=== PATIENT | female | born 1990 | race Hispanic/Latino ===

== ENCOUNTER 2017-11-29 11:08 | Emergency (ER) | payer OTHER, SELFPAY ==
[2017-11-29 13:38] LABS: Urine Bacteria 20-50 /HPF (<20); Urine Culture Reflex Order REFLEXED
[2017-11-29 13:39] LABS: Urine Mucus SLIGHT /HPF (NONE SEEN)
--- NOTE | 2017-11-29 14:02 | ER ---
Nurse's Notes [facility] Name: Domenica Harris Age: 27 yrs Sex: Female : 1990 Arrival Date: 11/29/2017 Time: 11:13 Bed 23 Private MD: None, None Diagnosis: Cystitis, unspecified with hematuria Presentation: 11/29 11:27 Presenting complaint: Patient states: Lower abdominal cramping and spotty vaginal hb bleeding yesterday, light flow today. Positive home test last week. LMP 10/22/17. Transition of care: patient was not received from another setting of care. Onset of symptoms was November 28, 2017. Risk Assessment: Do you want to hurt yourself or someone else? Patient reports no desire to harm self or others. Care prior to arrival: None. 11:27 Method Of Arrival: Ambulatory hb 11:27 Acuity: ZAID 3 hb 12:49 Initial Sepsis Screen: Does the patient meet any 2 criteria? No. Patient's initial ed1 sepsis screen is negative. Does the patient have a suspected source of infection? No. Patient's initial sepsis screen is negative. Triage Assessment: 11:28 General: Appears in no apparent distress. Behavior is calm, cooperative. Pain: Pain hb currently is 7 out of 10 on a pain scale. Neuro: Level of Consciousness is awake, alert, obeys commands, Oriented to person, place, time, situation. Cardiovascular: Capillary refill < 3 seconds. Respiratory: Airway is patent Trachea midline Respiratory effort is even, unlabored, Respiratory pattern is regular, symmetrical. : Reports cramping, vaginal bleeding that is light flow. 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 - Social history:: Smoking status: Patient/guardian denies using tobacco. - Ebola Screening: : No symptoms or risks identified at this time. Screenin:49 Abuse screen: Denies threats or abuse. Denies injuries from another. Nutritional ed1 screening: No deficits noted. Tuberculosis screening: No symptoms or risk factors identified. Fall Risk None identified. Assessment: 12:49 Obstetrical Assessment: General assessment: awake and alert, skin warm and dry, ed1 respirations even and unlabored, Patient reports positive home test. General: Appears in no apparent distress. Behavior is calm, cooperative. Pain: Complains of pain in right lower quadrant and left lower quadrant Pain does not radiate. Pain currently is 7 out of 10 on a pain scale. Quality of pain is described as crampy, Pain began 1 day ago. Is continuous. Neuro: Level of Consciousness is awake, alert, obeys commands, Oriented to person, place, time, situation. Cardiovascular: Denies chest pain, Heart tones S1 S2 present. Respiratory: Airway is patent Respiratory effort is even, unlabored, Respiratory pattern is regular, symmetrical, Breath sounds are clear bilaterally. GI: Abdomen is non-distended, Bowel sounds present X 4 quads. Abd is soft and non tender X 4 quads. Reports upper abdominal pain, Patient currently denies diarrhea, nausea, vomiting. : Reports vaginal bleeding that is bright red, spotty. EENT: No signs and/or symptoms were reported regarding the EENT system. Derm: Skin is pink, warm \T\ dry. Musculoskeletal: Circulation, motion, and sensation intact. 13:00 Reassessment: I agree with previous assessment. hb 13:50 Reassessment: Patient appears in no apparent distress at this time. No changes from ed1 previously documented assessment. Patient and/or family updated on plan of care and expected duration. Pain level reassessed. Patient is alert, oriented x 3, equal unlabored respirations, skin warm/dry/pink. Patient states symptoms have not improved. Vital Signs: 11:26 BP 149 / 88; Pulse 91; Resp 16; Temp 98.3; Pulse Ox 100% on R/A; Pain 7/10; hb 12:49 BP 136 / 84; Pulse 71; Resp 18; Pulse Ox 100% on R/A; Pain 7/10; ed1 13:50 BP 136 / 82; Pulse 76; Resp 17; Temp 98.5(O); Pulse Ox 100% on R/A; Pain 7/10; ed1 Vitals: 14:14 Heart Tones N/A. ed1 ED Course: 11:13 Patient arrived in ED. sb2 11:14 None, None is Private Physician. sb2 11:28 Triage completed. hb 11:28 Arm band placed on right wrist. hb 11:38 Itzel Buck RN is Primary Nurse. hb 12:49 Patient has correct armband on for positive identification. Bed in low position. Call ed1 light in reach. 12:50 Jessica Dominguez LVN is Primary Nurse. ed1 12:57 Eduard Wilson MD is Attending Physician. 14:13 No provider procedures requiring assistance completed. Patient did not have IV access ed1 during this emergency room visit. Administered Medications: No medications were administered Point of Care Testing: Urine : 13:50 hCG Reading: Negative; ed1 Outcome: 14:02 Discharge ordered by . gs 14:13 Discharged to home ambulatory. ed1 14:13 Condition: good 14:13 Discharge instructions given to patient, Instructed on discharge instructions, follow up and referral plans. medication usage, Demonstrated understanding of instructions, follow-up care, medications, Prescriptions given X 1. 14:15 Patient left the ED. ed1 Addendum: 12/02/2017 17:23 Addendum: Culture Results: Positive urine culture. Bacteria is resistant to, has i w intermediate sensitivity, or is not tested against prescribed antibiotics. Report given to BIANCA for further evaluation and then to hand candy dipper for follow up with patient. 17:26 Addendum: Culture Results: Phone call Attempt #1 pt did not answer, voice mail not set i w up. Signatures: Kenyetta Goodwin RN RN Jessica Dominguez LVN RELAY CHECKER ed1 Itzel Buck RN RN Eduard Wilson MD MD Carrie Brito sb2
--- NOTE | 2017-11-29 14:02 | EDPHYS ---
Physician Documentation [facility] Name: Domenica Harris Age: 27 yrs Sex: Female : 1990 Arrival Date: 11/29/2017 Time: 11:13 Bed 23 Private MD: None, None ED Physician Eduard Wilson HPI: 11/29 13:48 This 27 yrs old Female presents to ER via Ambulatory with complaints of gs Vaginal Bleeding, + Preg <12wks. 13:48 The patient presents to the emergency department with urinary symptoms, hematuria, gs vaginal bleeding, that is light. Associated signs and symptoms: Pertinent negatives: abdominal pain, fever. The patient has experienced similar episodes in the past, a few times. took upt was positive last week, symptoms started today. 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 - Social history:: Smoking status: Patient/guardian denies using tobacco. - Ebola Screening: : No symptoms or risks identified at this time. ROS: 13:48 All other systems are negative. gs Exam: 13:48 Head/Face: Normocephalic, atraumatic. Eyes: Pupils equal round and reactive to light, gs extra-ocular motions intact. Lids and lashes normal. Conjunctiva and sclera are non-icteric and not injected. Cornea within normal limits. Periorbital areas with no swelling, redness, or edema. ENT: Nares patent. No nasal discharge, no septal abnormalities noted. Tympanic membranes are normal and external auditory canals are clear. Oropharynx with no redness, swelling, or masses, exudates, or evidence of obstruction, uvula midline. Mucous membranes moist. Neck: Trachea midline, no thyromegaly or masses palpated, and no cervical lymphadenopathy. Supple, full range of motion without nuchal rigidity, or vertebral point tenderness. No Meningismus. Chest/axilla: Normal chest wall appearance and motion. Nontender with no deformity. No lesions are appreciated. Cardiovascular: Regular rate and rhythm with a normal S1 and S2. No gallops, murmurs, or rubs. Normal PMI, no JVD. No pulse deficits. Respiratory: Lungs have equal breath sounds bilaterally, clear to auscultation and percussion. No rales, rhonchi or wheezes noted. No increased work of breathing, no retractions or nasal flaring. Abdomen/GI: Soft, non-tender, with normal bowel sounds. No distension or tympany. No guarding or rebound. No evidence of tenderness throughout. Back: No spinal tenderness. No costovertebral tenderness. Full range of motion. Skin: Warm, dry with normal turgor. Normal color with no rashes, no lesions, and no evidence of cellulitis. MS/ Extremity: Pulses equal, no cyanosis. Neurovascular intact. Full, normal range of motion. Neuro: Awake and alert, GCS 15, oriented to person, place, time, and situation. Cranial nerves II-XII grossly intact. Motor strength 5/5 in all extremities. Sensory grossly intact. Cerebellar exam normal. Normal gait. 13:48 Constitutional: The patient appears alert, awake. Vital Signs: 11:26 BP 149 / 88; Pulse 91; Resp 16; Temp 98.3; Pulse Ox 100% on R/A; Pain 7/10; hb 12:49 BP 136 / 84; Pulse 71; Resp 18; Pulse Ox 100% on R/A; Pain 7/10; ed1 13:50 BP 136 / 82; Pulse 76; Resp 17; Temp 98.5(O); Pulse Ox 100% on R/A; Pain 7/10; ed1 MDM: 13:38 Patient medically screened. 13:48 Differential diagnosis: , uti. Data reviewed: vital signs, nurses notes. 11/29 12:58 Order name: Urine Microscopic Only 11/29 13:40 Order name: Urine Culture [facility] 11/29 12:58 Order name: Urine Test (obtain specimen); Complete Time: 13:50 11/29 12:58 Order name: Urine Dipstick-Ancillary (obtain specimen); Complete Time: 13:50 Administered Medications: No medications were administered Point of Care Testing: Urine : 13:50 hCG Reading: Negative; ed1 Disposition: 11/29/17 14:02 Discharged to Home. Impression: Cystitis, unspecified with hematuria. - Condition is Stable. - Discharge Instructions: Urinary Tract Infection, Adult. - Prescriptions for Keflex 500 mg Oral Capsule - take 1 capsule by ORAL route every 12 hours for 7 days; 14 capsule. - Medication Reconciliation Form, Thank You Letter, Antibiotic Education, Prescription Opioid Use form. - Follow up: Private Physician; When: 2 - 3 days; Reason: Re-evaluation by your physician. Signatures: Dispatcher [employer] EDMS Jessica Dominguez, INTERLOCKING PAVEMENT INSTALLER INTERLOCKING PAVEMENT INSTALLER ed1 Itzel Buck RN RN Eduard Ly MD MD gs Corrections: (The following items were deleted from the chart) 14:15 14:02 11/29/2017 14:02 Discharged to Home. Impression: Cystitis, unspecified with ed1 hematuria. Condition is Stable. Forms are Medication Reconciliation Form, Thank You Letter, Antibiotic Education, Prescription Opioid Use. Follow up: Private Physician; When: 2 - 3 days; Reason: Re-evaluation by your physician. gs
[2017-11-29 14:20] VITALS: O2SAT 100
[2017-11-29 14:22] VITALS: BP 136/82; TEMP 98.5
== END 2017-11-29 14:15 | disposition home or self-care (01) ==
LOC: ER 11:08
DX: N30.91 Cystitis, unspecified with hematuria (principal); Z91.040 Latex allergy status; Z91.048 Other nonmedicinal substance allergy status
CPT/HCPCS: 81015; 87077; 87086; 87088; 87186; 99283

== ENCOUNTER 2018-10-09 21:13 | Emergency (ER) | payer OTHER, SELFPAY ==
--- OUTSIDE RECORDS SUMMARY | 2018-10-09 21:15 | XMS REPORT ---
:1990 [facility] [address] [place] [address] Dr. Maxwell[address] [place] [id number] Care Team Providers Name Role Phone Unavailable Unavailable Unavailable Problems This patient has no known problems. Allergies, Adverse Reactions, Alerts This patient has no known allergies or adverse reactions. Medications This patient has no known medications.
--- NOTE | 2018-10-09 22:04 | ER ---
Nurse's Notes [facility] Name: Domenica Calderón Age: 28 yrs Sex: Female : 1990 Arrival Date: 10/09/2018 Time: 21:17 Bed Waiting Private MD: Diagnosis: Presentation: 10/09 21:18 Presenting complaint: Patient states: Chills today. Reports giving 4 days ago. aj Care prior to arrival: None. 21:18 Acuity: ZAID 3 aj 21:18 Method Of Arrival: Ambulatory Triage Assessment: 21:18 General: Appears in no apparent distress. comfortable, Behavior is calm, cooperative, aj appropriate for age. Pain: Denies pain. Neuro: Level of Consciousness is awake, alert, obeys commands, Oriented to person, place, time, situation, Appropriate for age. Respiratory: Airway is patent Respiratory effort is even, unlabored, Respiratory pattern is regular, symmetrical. Derm: Skin is intact, is healthy with good turgor, Skin is pink, warm \T\ dry. normal. 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 4 in. (162.56 cm); 21:18 Body Mass Index 35.19 (92.99 kg, 162.56 cm) aj ED Course: 21:17 Patient arrived in ED. es 21:18 Triage completed. aj 21:18 Arm band placed on left wrist. Patient placed in waiting room, Patient notified of wait aj time. 22:03 Geovani Saavedra MD is Attending Physician. aj Administered Medications: No medications were administered Outcome: 22:03 Eloped from waiting room, before seeing physician Time discovered patient gone: September at 22:03 22:03 Patient left the ED. aj Signatures: Jackie Carrera, RN RN Sujatha Silverman
[2018-10-09 23:29] VITALS: BP 105/67; TEMP 98.3; O2SAT 98
== END 2018-10-09 22:03 | disposition left against medical advice (07) ==
LOC: ER 21:13
DX: R68.83 Chills (without fever) (principal); Z53.21 Procedure and treatment not carried out due to patient leaving prior to being seen by health care provider
CPT/HCPCS: 99281

== ENCOUNTER 2024-04-25 18:20 | Emergency (ER) | payer OTHER, SELFPAY ==
--- NOTE | 2024-04-25 18:56 | EDPHYS ---
Physician Documentation [facility] Name: Domenica Calderón Age: 33 yrs Sex: Female : 1990 Arrival Date: 04/25/2024 Time: 18:20 Bed DX3 Private MD: ED Physician Diego Menjivar HPI: 04/25 20:46 This 33 yrs old Female presents to ER via Ambulatory with complaints of Leg ms3 Swelling - Left including foot drop. 20:46 Lin Calderón is a 33-year-old woman who presents to the Emergency Department with a ms3 flare of her multiple sclerosis (MS). She describes this episode as similar to her typical MS flares, which include weakness and foot drop. Lin has previously been treated in the emergency department with oral steroids and discharged home with steroid for her MS flares and prefers not to be admitted this time due to her responsibilities at home, including caring for her five children and a . She reports that oral steroids have been effective in the past. She desires to manage this flare with outpatient oral steroids rather than hospital admission.. Historical: - Allergies: 18:42 No Known Allergies; ll1 - PMHx: 18:42 Anemia; gestational diabetes; Multiple Sclerosis; ll1 - PSHx: 18:42 section; ll1 - Immunization history:: Flu vaccine is not up to date. - Infectious Disease History:: Denies. - Social history:: Smoking status: Patient denies any tobacco usage or history of. ROS: 20:46 Constitutional: Negative for fever, and chills. Cardiovascular: Negative for chest ms3 pain, and palpitations. Respiratory: Negative for shortness of breath, cough, wheezing, and pleuritic chest pain, Abdomen/GI: Negative for abdominal pain, nausea, vomiting, diarrhea, and constipation, MS/Extremity: Negative for injury and deformity, 20:48 Neuro: Positive for Left foot drop, left-sided weakness, ms3 Exam: 20:48 CT study not indicated or reported. Reason for not performing CT: Patient declines ms3 workup requesting oral steroids 20:48 Constitutional: This is a well developed, well nourished patient who is awake, alert, and in no acute distress. Chest/axilla: Normal chest wall appearance and motion. Nontender with no deformity. Cardiovascular: Regular rate and rhythm with a normal S1 and S2. No gallops, murmurs, or rubs. Normal PMI, no JVD. No pulse deficits. Respiratory: Lungs have equal breath sounds bilaterally, clear to auscultation and percussion. No rales, rhonchi or wheezes noted. No increased work of breathing, no retractions or nasal flaring. Abdomen/GI: Soft, non-tender, with normal bowel sounds. No distension or tympany. No guarding or rebound. No evidence of tenderness throughout. Skin: Warm, dry with normal turgor. Normal color with no rashes, no lesions, and no evidence of cellulitis. 20:48 Musculoskeletal/extremity: Left foot drop. 20:48 Neuro: Orientation: is normal, Mentation: is normal, Memory: is normal, Cranial nerves: CN I not tested, CN II- XII are normal as tested, Cerebellar function: Ambulatory emergency room, Motor: Gait: is steady, Vital Signs: 18:41 BP 108 / 93; Pulse 78; Resp 17; Temp 97.7(TE); Pulse Ox 100% on R/A; MAP 99 mmHg; ll1 Weight 72.57 kg; Height 5 ft. 4 in. ; Pain 0/10; 19:15 BP 108 / 71; Pulse 74; Resp 17; Temp 97.7; Pulse Ox 100% on R/A; MAP 82 mmHg; tm6 18:41 Body Mass Index 27.46 (72.57 kg, 162.56 cm) ll1 18:41 Pain Scale: Adult ll1 MDM: 18:46 Medical Screening Exam initiated ms3 18:56 ED course: Patient has decided to refuse labs, CT scan, hospital admission. At this ms3 time, I reevaluated the patient and discussed the following: a. Capacity: The patient has the capacity to communicate, understand information, and logically process the decision making process. b. Communication of risks: At bedside, I discussed potential risks, outcomes, and alternative approaches in a patientcentered manner. The patient was informed of the specific risks of worsening disease process, disability, including worsening condition and . The patient understands that they are welcome to return at any time to complete the workup. Patient is discharged from my care with informed refusal. . 20:48 Differential diagnosis: metabolic disorder, Multiple sclerosis flare. TNKase ms3 (Tenecteplase) Screening: Not Applicable. Data reviewed: vital signs, nurses notes, and as a result, I will discharge patient. Consideration of Admission/Observation Escalation of care including admission/observation considered. Discussed necessity for further workup and admission for high-dose steroids. Patient declines. Management of patient was discussed with the following: Nuclear Fuel Processing Technician: Neurology, Dr Mcknight. Recommends inpatient treatment and MRI. Discussed patients voicing of not wanting inpatient treatment and discharge with Medrol Dose Misael and he states patient can be discharged with Rx and will need to follow up with her Neurologist on Sunday.. I considered the following discharge prescriptions or medication management in the emergency department Medications were administered in the Emergency Department. See MAR. Counseling: I had a detailed discussion with the patient and/or guardian regarding the historical points, exam findings, and any diagnostic results supporting the discharge/admit diagnosis, the need for outpatient follow up, to return to the emergency department if symptoms worsen or persist or if there are any questions or concerns that arise at home. 21:01 ED course: Discussed necessity of patient to follow-up with her neurologist on Sunday. ms3 Patient understands agrees with plan. All questions were answered. Discussed with patient she may return at any time for inpatient treatment of her condition.. Administered Medications: 19:15 Drug: Dexamethasone IM 10 mg IM once Route: IM; Site: right deltoid; tm6 19:15 Follow up: Response: Medication administered at discharge. tm6 Disposition Summary: 04/25/24 18:56 Discharge Ordered Notes: Location: Home ms3 Condition: Stable ms3 Diagnosis - MS Flare ms3 Followup: ms3 - With: Private Physician - When: 2 - 3 days - Reason: Recheck today's complaints Discharge Instructions: - Discharge Summary Sheet ms3 - Multiple Sclerosis ms3 Forms: - Medication Reconciliation Form ms3 - Antibiotic Education ms3 - Prescription Opioid Use ms3 - Patient Portal Instructions ms3 - Leadership Thank You Letter ms3 Prescriptions: - Medrol (Misael) 4 mg Oral Tablets, Dose Pack - take 1 tablet ORAL route as directed - follow package instructions; 1 packet; ms3 Refills: 0, Product Selection Permitted Signatures: Fermin Martinez RN RN ll1 Diego Menjivar DO DO ms3 Marbin Colin RN RN tm6 Corrections: (The following items were deleted from the chart) 21:01 20:48 ED course: Patient has decided to refuse labs, CT scan, hospital admission. At ms3 this time, I reevaluated the patient and discussed the following: a. Capacity: The patient has the capacity to communicate, understand information, and logically process the decision making process. b. Communication of risks: At bedside, I discussed potential risks, outcomes, and alternative approaches in a patientcentered manner. The patient was informed of the specific risks of worsening disease process, disability, including worsening condition and . The patient understands that they are welcome to return at any time to complete the workup. Patient is discharged from my care with informed refusal.. ms3 21:01 20:48 ED course: Patient has decided to refuse labs, CT scan, hospital admission. At ms3 this time, I reevaluated the patient and discussed the following: a. Capacity: The patient has the capacity to communicate, understand information, and logically process the decision making process. b. Communication of risks: At bedside, I discussed potential risks, outcomes, and alternative approaches in a patientcentered manner. The patient was informed of the specific risks of worsening disease process, disability, including worsening condition and . The patient understands that they are welcome to return at any time to complete the workup. Patient is discharged from my care with informed refusal. . ms3
--- NOTE | 2024-04-25 18:56 | ER ---
Nurse's Notes [facility] Name: Domenica Calderón Age: 33 yrs Sex: Female : 1990 Arrival Date: 04/25/2024 Time: 18:20 Bed DX3 Private MD: Diagnosis: MS Flare Presentation: 04/25 18:41 Chief complaint: Patient states: I feel like I'm having an MS flair up. I have foot ll1 drop on my left foot and I feel like my left hand is weak, since yesterday. Coronavirus screen: Client denies travel out of the [place] in the last 14 days. Ebola Screen: Patient negative for fever greater than or equal to 101.5 degrees Fahrenheit, and additional compatible Ebola Virus Disease symptoms Patient denies exposure to infectious person. Patient denies travel to an Ebola-affected area in the 21 days before illness onset. No symptoms or risks identified at this time. Initial Sepsis Screen: Does the patient meet any 2 criteria? No. Patient's initial sepsis screen is negative. Does the patient have a suspected source of infection? No. Patient's initial sepsis screen is negative. Risk Assessment: Do you want to hurt yourself or someone else? Patient reports no desire to harm self or others. Onset of symptoms was April 24, 2024. 18:41 Method Of Arrival: Ambulatory 1 18:41 Acuity: ZAID 3 ll1 Triage Assessment: 18:42 General: Appears in no apparent distress. Behavior is calm, cooperative. Pain: Denies ll1 pain. EENT: No signs and/or symptoms were reported regarding the EENT system. Neuro: Level of Consciousness is awake, alert, obeys commands, Oriented to person, place, time, situation, Reports left foot drop and left hand weakness. Cardiovascular: Patient's skin is warm and dry. Respiratory: Airway is patent Respiratory effort is even, unlabored, Respiratory pattern is regular, symmetrical. GI: No signs and/or symptoms were reported involving the gastrointestinal system. Abdomen is flat, non-distended. : No signs and/or symptoms were reported regarding the genitourinary system. Derm: No signs and/or symptoms reported regarding the dermatologic system. Musculoskeletal: Reports left foot drop and left hand weakness. Historical: - Allergies: 18:42 No Known Allergies; ll1 - PMHx: 18:42 Anemia; gestational diabetes; Multiple Sclerosis; ll1 - PSHx: 18:42 section; ll1 - Immunization history:: Flu vaccine is not up to date. - Infectious Disease History:: Denies. - Social history:: Smoking status: Patient denies any tobacco usage or history of. Screenin:15 [facility] ED Fall Risk Assessment (Adult) History of falling in the last 3 months, tm6 including since admission No falls in past 3 months (0 pts) Confusion or Disorientation No (0 pts) Intoxicated or Sedated No (0 pts) Impaired Gait No (0 pts) Mobility Assist Device Used No (0 pt) Altered Elimination No (0 pt) Score/Fall Risk Level 0 - 2 = Low Risk Oriented to surroundings, Maintained a safe environment, Educated pt \T\ family on fall prevention, incl call for assistance when getting out of bed. Abuse screen: Denies threats or abuse. Denies injuries from another. Nutritional screening: No deficits noted. Tuberculosis screening: No symptoms or risk factors identified. Assessment: 19:15 Reassessment: see triage assessment. tm6 Vital Signs: 18:41 BP 108 / 93; Pulse 78; Resp 17; Temp 97.7(TE); Pulse Ox 100% on R/A; MAP 99 mmHg; ll1 Weight 72.57 kg; Height 5 ft. 4 in. ; Pain 0/10; 19:15 BP 108 / 71; Pulse 74; Resp 17; Temp 97.7; Pulse Ox 100% on R/A; MAP 82 mmHg; tm6 18:41 Body Mass Index 27.46 (72.57 kg, 162.56 cm) ll1 18:41 Pain Scale: Adult ll1 ED Course: 18:24 Patient arrived in ED. ra3 18:36 Diego Menjivar DO is Attending Physician. ms3 18:42 Triage completed. ll1 18:42 Arm band placed on right wrist. ll1 19:15 Patient has correct armband on for positive identification. Provided Education on: tm6 please return to ER for worsening symptoms. Typically patients are admitted for MS flare ups.. 19:15 No provider procedures requiring assistance completed. Patient did not have IV access tm6 during this emergency room visit. 19:18 Marbin Colin, RN is Primary Nurse. tm6 Administered Medications: 19:15 Drug: Dexamethasone IM 10 mg IM once Route: IM; Site: right deltoid; tm6 19:15 Follow up: Response: Medication administered at discharge. tm6 Medication: 19:15 VIS not applicable for this client. tm6 Outcome: 18:56 Discharge ordered by . ms3 19:18 Discharged to home ambulatory, tm6 19:18 Condition: stable 19:18 Discharge instructions given to patient, Instructed on discharge instructions, follow up and referral plans. medication usage, Demonstrated understanding of instructions, Prescriptions given X 1, 19:19 Patient left the ED. tm6 Signatures: Fermin Martinez, RN RN ll1 Diego Menjivar DO DO ms3 Marbin Colin RN RN tm6 Raquel Brownlee ra3
[2024-04-25] MEDS ORDERED: dexAMETHasone 10 MG/ML VIAL ONE (19:07)
[2024-04-25 19:34] VITALS: TEMP 97.7; O2SAT 100
[2024-04-25 19:35] VITALS: BP 108/71
== END 2024-04-25 19:19 | disposition home or self-care (01) ==
LOC: ER 18:20
DX: G35 Multiple sclerosis (principal)
CPT/HCPCS: 96372; 99284; J1100

== ENCOUNTER 2024-08-08 17:28 | Emergency (ER) | payer SELFPAY ==
[2024-08-08 18:27] LABS: Specific Gravity 1.018 (1.005-1.030)
[2024-08-08 18:28] LABS: Specific Gravity 1.018 (1.005-1.030); Sqamous Epithelial <5 /HPF (None Seen); Urine Bacteria <20 /HPF (<20); Urine Bilirubin NEGATIVE (Negative); Urine Blood Negative (Negative); Urine Clarity Turbid (Clear); Urine Color Light-Yellow (Yellow); Urine Crystals Unidentified Few /HPF (None Seen); Urine Culture Reflex Order NOT NEEDED; Urine Glucose NEGATIVE (Negative); Urine Ketones NEGATIVE (Negative); Urine Microscopic Reflex YN ORDER UMIC; Urine Mucus Slight /HPF (None Seen); Urine Nitrite NEGATIVE (Negative); Urine Protein NEGATIVE (Negative); Urine RBC <5 /HPF (None Seen); Urine Urobilinogen Normal (Normal)
--- NOTE | 2024-08-08 20:16 | RAD REPORT ---
EXAMINATION: TWO VIEW CHEST XR CLINICAL INDICATION: Female, 34 years old. [facility] MAIN CHEST PAIN Bed Name: [facility] TECHNIQUE: 2 view radiographs of the chest were performed. COMPARISON: No prior exam. FINDINGS: The lungs are well inflated and clear. No pneumothorax or sizable effusion. The heart is normal in si ze. Mediastinal contours are unremarkable. IMPRESSION: No acute or significant abnormalities.
[2024-08-08 20:32] LABS: Absolute Eosinophils 0.1 K/uL (0-0.5); Absolute Lymphocytes (CBC) 2.1 K/uL (0.7-4.9); Absolute Monocytes 0.5 K/uL (0.1-1.3); Absolute Neutrophil 4.1 K/uL (1.8-8.0); Basophils % 0.7 % (0-1.3); Eosinophils % 1.8 % (0-4.4); Hematocrit 34.8 % (36.0-45.0); Hemoglobin 11.1 g/dL (12.0-15.0); Lymphocytes % 31.3 % (15.3-44.8); MCH 23.1 pg (27.0-35.0); MCV 72.2 fL (80-100); MPV 8.2 fL (7.6-11.3); Monocytes % 6.7 % (3.3-12.3); Neutrophils % 59.5 % (41.7-73.7); Platelets 351 thou/uL (152-406); RBC Red Blood Cell Count 4.82 M/uL (3.86-4.86); Red Cell Distribution Width 15.4 % (12.1-15.2)
[2024-08-08] MEDS ORDERED: ONDANSETRON 4 MG/2 ML VIAL ONE (20:46)
[2024-08-08] MEDS ORDERED: NA CHLORIDE 0.9% 1,000 ML ONE (20:46)
[2024-08-08 20:48] LABS: ALT/SGPT 20 U/L (13-56); AST/SGOT < 10 U/L (15-37); Albumin 3.6 g/dL (3.4-5.0); Alkaline Phosphatase 68 U/L (45-117); BUN Blood Urea Nitrogen 13 mg/dL (7-18); Bicarbonate 27 mEq/L (21-32); Bilirubin Total 0.5 mg/dL (0.2-1.0); Globulin 3.7 g/dL (2.3-3.5); Glomerular Filtration Rate 123 ml/min (=/>90); Glucose Level 95 mg/dL (74-106); Lipase 30 U/L (13-75); Protein, Total 7.3 g/dL (6.4-8.2); Sodium Level 138 mEq/L (136-145); Troponin High Sensitivity < 3.0 pg/mL (<58.9)
--- NOTE | 2024-08-08 22:28 | ER ---
Nurse's Notes [facility] Name: Domenica Calderón Age: 34 yrs Sex: Female : 1990 Arrival Date: 08/08/2024 Time: 17:28 Bed 2 Private MD: Diagnosis: UTI/ Urinary tract infection, site not specified Presentation: 08/08 17:56 Chief complaint: Patient states: patient is complaining of chest pain that started on ap3 her right upper chest and left lower abdomen that started this morning. patient states the chest pain has resolved, and the lower abdominal pain is currently a 4/10 on the pain scale. Coronavirus screen: At this time, the client does not indicate any symptoms associated with coronavirus-19. Ebola Screen: No symptoms or risks identified at this time. Initial Sepsis Screen: Does the patient meet any 2 criteria? No. Patient's initial sepsis screen is negative. Does the patient have a suspected source of infection? No. Patient's initial sepsis screen is negative. Risk Assessment: Do you want to hurt yourself or someone else? Patient reports no desire to harm self or others. Onset of symptoms is unknown. 17:56 Method Of Arrival: Ambulatory ap3 17:56 Acuity: ZAID 3 ap3 Triage Assessment: 17:59 General: Appears in no apparent distress. Behavior is calm, cooperative, appropriate ap3 for age. Pain: Complains of pain in chest and left lower quadrant Pain began gradually. Neuro: Level of Consciousness is awake, alert, obeys commands, Oriented to person, place, time, situation, Appropriate for age Speech is normal. Cardiovascular: Reports chest pain, that was this morning but since resolved. Patient's skin is warm and dry. Respiratory: Airway is patent Respiratory effort is even, unlabored, Respiratory pattern is regular, symmetrical. GI: Abdomen is non-distended, Reports lower abdominal pain. 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 - Infectious Disease History:: Denies. - Social history:: Smoking status: Patient denies any tobacco usage or history of. Screenin:00 [facility] ED Fall Risk Assessment (Adult) History of falling in the last 3 months, ap3 including since admission No falls in past 3 months (0 pts) Confusion or Disorientation No (0 pts) Intoxicated or Sedated No (0 pts) Impaired Gait No (0 pts) Mobility Assist Device Used No (0 pt) Altered Elimination No (0 pt) Score/Fall Risk Level 0 - 2 = Low Risk Oriented to surroundings, Maintained a safe environment, Educated pt \T\ family on fall prevention, incl call for assistance when getting out of bed, Assessed \T\ reinforced patient's understanding of fall precautions, Hourly rounding (assess needs \T\ fall precautionary measures) done, Used ambulatory aids as needed (educated on \T\ assisted with). Abuse screen: Denies threats or abuse. Nutritional screening: No deficits noted. Tuberculosis screening: No symptoms or risk factors identified. Assessment: 20:54 General: Appears in no apparent distress. comfortable, Behavior is calm, cooperative, bm8 appropriate for age. Pain: Denies pain. Neuro: No deficits noted. Level of Consciousness is awake, alert, obeys commands, Oriented to person, place, time, situation, Appropriate for age. Cardiovascular: No deficits noted. Denies chest pain, lightheadedness, shortness of breath, Capillary refill < 3 seconds in bilateral fingers toes Patient's skin is warm and dry. Respiratory: Airway is patent Trachea midline Respiratory effort is even, unlabored, Respiratory pattern is regular, symmetrical, Breath sounds are clear bilaterally. GI: No signs and/or symptoms were reported involving the gastrointestinal system. Abdomen is flat, non-distended, Bowel sounds present X 4 quads. Abd is soft and non tender X 4 quads. 22:17 Reassessment: Patient appears in no apparent distress at this time. Patient and/or bm8 family updated on plan of care and expected duration. Pain level reassessed. Patient is alert, oriented x 3, equal unlabored respirations, skin warm/dry/pink. Patient denies pain at this time. Patient states feeling better. Patient states symptoms have improved. Vital Signs: 17:56 BP 130 / 89; Pulse 81; Resp 17; Temp 98.8; Pulse Ox 98% ; Weight 68.04 kg; Height 5 ft. ap3 4 in. ; Pain 4/10; 20:54 BP 98 / 74; Pulse 70; Resp 16; Temp 98.8; Pulse Ox 100% ; Pain 0/10; bm8 22:17 BP 108 / 77; Pulse 79; Resp 16; Temp 98.8; Pulse Ox 100% ; Pain 0/10; bm8 17:56 Body Mass Index 25.75 (68.04 kg, 162.56 cm) ap3 17:56 Pain Scale: Adult ap3 20:54 Pain Scale: Adult bm8 22:17 Pain Scale: Adult bm8 Shirland Coma Score: 20:54 Eye Response: spontaneous(4). Motor Response: obeys commands(6). Verbal Response: bm8 oriented(5). Total: 15. 22:17 Eye Response: spontaneous(4). Motor Response: obeys commands(6). Verbal Response: bm8 oriented(5). Total: 15. ED Course: 17:30 Patient arrived in ED. im 17:48 Willy George [facility]C [facility] 17:48 Chris Gutierrez MD is Attending Physician. dr5 17:58 Triage completed. ap3 18:00 Arm band placed on right wrist. ap3 18:53 Chest Pa And Lat (2 Views) XRAY In Process Unspecified. EDMS 20:44 Barry Jeffries, RN is Primary Nurse. bm8 20:54 Patient has correct armband on for positive identification. Bed in low position. Call bm8 light in reach. Side rails up X 1. Client placed on continuous cardiac and pulse oximetry monitoring. NIBP monitoring applied. Pulse ox on. NIBP on. Door closed. Noise minimized. Verbal reassurance given. Head of bed elevated. 20:54 No provider procedures requiring assistance completed. Initial lab(s) drawn, by , sara sent to lab. Inserted saline lock: 20 gauge in right antecubital area, using aseptic technique. Blood collected. Flushed with 10 mL NS. 22:43 Provided Education on: post er care. bm8 22:43 IV discontinued, intact, bleeding controlled, No redness/swelling at site. Pressure bm8 dressing applied. Administered Medications: 20:54 Not Given (Patient Refused): ondansetron 4 mg IVP once; over 2 minutes bm8 20:54 Drug: NS 0.9% IV 1000 ml IV at 1 bolus Per protocol; to be given as a bolus over 60 bm8 minutes Route: IV; Rate: 1 bolus; Site: right antecubital; 22:18 Follow up: Response: No adverse reaction; IV Status: Completed infusion bm8 Medication: 20:54 VIS not applicable for this client. bm8 Outcome: 22:28 Discharge ordered by . cameron 22:43 Discharged to home ambulatory, bm8 22:43 Condition: stable 22:43 Discharge instructions given to patient, family, Instructed on discharge instructions, follow up and referral plans. no drinking with medication, no driving heavy equipment, medication usage, safety practices, Demonstrated understanding of instructions, follow-up care, medications, Prescriptions given X 1, 22:44 Patient left the ED. bm8 Signatures: Dispatcher [employer] Jackie Michel, RN RN [email or web address] Angelica Glasgow Brad RN RN bm8 Willy George, MORTGAGE CLOSING CLERK-C MORTGAGE CLOSING CLERK-Cdr5
--- NOTE | 2024-08-08 22:29 | EDPHYS ---
Physician Documentation [facility] Name: Domenica Calderón Age: 34 yrs Sex: Female : 1990 Arrival Date: 08/08/2024 Time: 17:28 Bed 2 Private MD: ED Physician Chris Gutierrez HPI: 08/09 00:31 This 34 yrs old Female presents to ER via Ambulatory with complaints of dr5 Abdominal Pain, Chest Pain. 00:31 The patient presents with abdominal pain in the left lower quadrant. Onset: The dr5 symptoms/episode began/occurred acutely. Patient is a 34-year-old female with history of anemia, multiple sclerosis coming in with left lower quadrant abdominal pain as well as sharp chest pain that started this morning and lasted approximately 2 seconds which resolved. Patient denies any cardiac history.. 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 - Infectious Disease History:: Denies. - Social history:: Smoking status: Patient denies any tobacco usage or history of. ROS: 08/09 01:27 Constitutional: as per hpi dr5 Exam: 01:27 Constitutional: This is a well developed, well nourished patient who is awake, alert, dr5 and in no acute distress. Head/Face: Normocephalic, atraumatic. Eyes: Pupils equal round and reactive to light, extra-ocular motions intact. Lids and lashes normal. Conjunctiva and sclera are non-icteric and not injected. Cornea within normal limits. Periorbital areas with no swelling, redness, or edema. Neck: Trachea midline, no thyromegaly or masses palpated, and no cervical lymphadenopathy. Supple, full range of motion without nuchal rigidity, or vertebral point tenderness. No Meningismus. Chest/axilla: Normal chest wall appearance and motion. Nontender with no deformity. No lesions are appreciated. Cardiovascular: Regular rate and rhythm with a normal S1 and S2. Normal PMI, no JVD. No pulse deficits. Respiratory: Lungs have equal breath sounds bilaterally, clear to auscultation. No rales, rhonchi or wheezes noted. No increased work of breathing, no retractions or nasal flaring. :27 Back: No spinal tenderness. No costovertebral tenderness. Full range of motion. Skin: Warm, dry with normal turgor. Normal color with no rashes, no lesions, and no evidence of cellulitis. Neuro: Awake and alert, GCS 15, oriented to person, place, time, and situation. Cranial nerves II-XII grossly intact. Motor strength 5/5 in all extremities. Sensory grossly intact. Cerebellar exam normal. Normal gait. :27 Abdomen/GI: Inspection: abdomen appears normal, Bowel sounds: normal, Palpation: mild abdominal tenderness, in the left lower quadrant, Vital Signs: 08/08 17:56 BP 130 / 89; Pulse 81; Resp 17; Temp 98.8; Pulse Ox 98% ; Weight 68.04 kg; Height 5 ft. ap3 4 in. ; Pain 4/10; 20:54 BP 98 / 74; Pulse 70; Resp 16; Temp 98.8; Pulse Ox 100% ; Pain 0/10; bm8 22:17 BP 108 / 77; Pulse 79; Resp 16; Temp 98.8; Pulse Ox 100% ; Pain 0/10; bm8 17:56 Body Mass Index 25.75 (68.04 kg, 162.56 cm) ap3 17:56 Pain Scale: Adult ap3 20:54 Pain Scale: Adult bm8 22:17 Pain Scale: Adult bm8 Winnie Coma Score: 20:54 Eye Response: spontaneous(4). Motor Response: obeys commands(6). Verbal Response: bm8 oriented(5). Total: 15. 22:17 Eye Response: spontaneous(4). Motor Response: obeys commands(6). Verbal Response: bm8 oriented(5). Total: 15. MDM: 17:48 Medical Screening Exam initiated dr5 18:02 Differential diagnosis: acute coronary syndrome, Pyelonephritis, urinary tract dr5 infection. Data reviewed: vital signs, nurses notes, lab test result(s), radiologic studies. I considered the following discharge prescriptions or medication management in the emergency department Medications were administered in the Emergency Department. See MAR. Care significantly affected by the following chronic conditions: MS. Care significantly affected by the following Social Determinants of Health: Poor access to healthcare and/or lack of insurance, Poor access to transportation, Problems related to employment. Counseling: I had a detailed discussion with the patient and/or guardian regarding the historical points, exam findings, and any diagnostic results supporting the discharge/admit diagnosis, the presence of at least one elevated blood pressure reading (>120/80) during this emergency department visit, lab results, the need for outpatient follow up, for definitive care, a family practitioner, to return to the emergency department if symptoms worsen or persist or if there are any questions or concerns that arise at home. Response to treatment: the patient's symptoms have resolved after treatment. ED course: Patient's labs were discussed with patient and will cover for urinary tract infection. Patient did not have any chest pain during ER stay. Will cover for urinary tract infection with antibiotics. Have patient follow-up primary care doctor this next week. All labs were printed and given to patient. All questions answered. 08/08 18: Order name: CBC with Diff; Complete Time: : [facility] 08/08 18:02 Order name: CMP; Complete Time: : [facility] 08/08 18:02 Order name: Lipase; Complete Time: : [facility] 08/08 18:02 Order name: Test, Urine; Complete Time: 19: [facility] 08/08 18:02 Order name: Urinalysis w/ reflexes; Complete Time: : [facility] 08/08 18:02 Order name: Troponin HS; Complete Time: : [facility] 08/08 18:02 Order name: Chest Pa And Lat (2 Views) XRAY; Complete Time: 20: [facility] 08/08 18:02 Order name: IV Saline Lock; Complete Time: : [facility] 08/08 18:02 Order name: Labs collected and sent; Complete Time: : [facility] 08/08 18:02 Order name: EKG - Nurse/Tech; Complete Time: 18: [facility] 08/08 18:02 Order name: IV Saline Lock; Complete Time: : [facility] 08/08 18:02 Order name: Labs collected and sent; Complete Time: : [facility] 08/08 18:02 Order name: O2 Per Protocol; Complete Time: : [facility] 08/08 18:02 Order name: O2 Sat Monitoring; Complete Time: [facility] EC: Rate is 74 beats/min. Rhythm is regular. QRS Dumas is Normal. [place] interval is normal at dr5 124 msec. QRS interval is normal at 102 msec. QT interval is normal at 358 msec. Administered Medications: 20:54 Not Given (Patient Refused): ondansetron 4 mg IVP once; over 2 minutes bm8 20:54 Drug: NS 0.9% IV 1000 ml IV at 1 bolus Per protocol; to be given as a bolus over 60 bm8 minutes Route: IV; Rate: 1 bolus; Site: right antecubital; 22:18 Follow up: Response: No adverse reaction; IV Status: Completed infusion bm8 Disposition: 08/09 19:27 Co-signature as Attending Physician, Chris Gutierrez MD I reviewed the patient's care rt provided by the Advanced Practice Provider and agree with the diagnosis and treatment plan. Disposition Summary: 08/08/24 22:28 Discharge Ordered Notes: Location: Home dr5 Condition: Stable dr5 Diagnosis - UTI/ Urinary tract infection, site not specified dr5 Followup: dr5 - With: Emergency Department - When: As needed - Reason: Worsening of condition Followup: dr5 - With: Private Physician - When: 1 - 2 days - Reason: Recheck today's complaints, Continuance of care, Re-evaluation by your physician Discharge Instructions: - Discharge Summary Sheet dr5 - Urinary Tract Infection, Adult, [id number] dr5 Forms: - Medication Reconciliation Form dr5 - Antibiotic Education dr5 - Patient Portal Instructions dr5 - Leadership Thank You Letter dr5 Prescriptions: - Cephalexin 500 mg Oral Capsule - take 1 capsule ORAL route every 12 hours for 10 days; 20 capsule; Refills: 0, dr5 Product Selection Permitted Signatures: Dispatcher MedHoGallup Indian Medical CenterJackie Scott RN RN ap3 Chris Gutierrez MD MD rt Barry Jeffries RN RN bm8 Willy George, TRAILERS AND MOTOR HOMES SALESPERSON-C TRAILERS AND MOTOR HOMES SALESPERSON-Cdr5 Corrections: (The following items were deleted from the chart) 08/08 18:02 18:02 CBC+H.LAB.BRZ ordered. EDMT EDMS 18:02 18:02 COMPREHENSIVE METABOLIC PANEL+C.LAB.BRZ ordered. EDMT EDMS 18:02 18:02 LIPASE+C.LAB.BRZ ordered. EDMT EDMS 18:02 18:02 Test, Urine+UC.LAB.BRZ ordered. EDMT EDMS 18:02 18:02 Urinalysis+U.LAB.BRZ ordered. EDMS EDMS 18: 18:02 Troponin High Sensitivity+C.LAB.BRZ ordered. EDMS EDMS 18:02 18:02 Chest Pa And Lat (2 Views)+RAD.RAD.BRZ ordered. EDMS EDMS
[2024-08-09 00:35] VITALS: TEMP 98.8
[2024-08-09 00:41] VITALS: O2SAT 100
[2024-08-09 00:47] VITALS: BP 108/77
--- NOTE | 2024-08-11 12:15 | EKG ---
Test Date: 2024-08-08 Test Time: 18:02:52 Gut Dropper: Gutierrez JADE MEASUREMENT RESULTS: Intervals: Rate: 74 TN: 124 QRSD: 102 QT: 358 QTc: 397 Aylett: P: 16 TN: 124 QRS: 74 T: 10 INTERPRETIVE STATEMENTS: Normal sinus rhythm Nonspecific T wave abnormality Abnormal ECG No previous ECG available for comparison Electronically Signed On 08-11-24 12:09:22 CDT by Khanh Pompa
== END 2024-08-08 22:44 | disposition home or self-care (01) ==
LOC: ER 17:28
DX: N39.0 Urinary tract infection, site not specified (principal); R07.9 Chest pain, unspecified
CPT/HCPCS: 36415; 71046; 80053; 81001; 81025; 83690; 84484; 85025; 93005; 96360; 99284; J2405; J7030

== ENCOUNTER 2025-01-02 19:31 | Emergency (ER) | payer SELFPAY ==
--- OUTSIDE RECORDS SUMMARY | 2025-01-02 19:52 | XMS REPORT | Continuity of Care Document ---
Author Name Unknown Address [address] [facility]. [address] [place] [address] Organization [facility] Address [address] [facility] [address] [place] [address] Care Team Providers Care Drapery Counselor Name Role Phone Buddy NKECHI Yadira Primary Care Physician MARÍA BAUTISTA Attending Clinician Unavailable KAREN MONREAL Attending Clinician Unavailable KAREN MONREAL Attending Clinician Unavailable ESTEVAN MARQUES Attending Clinician Unavailab ESTEVAN Blanco Attending Clinician Unavailab BITA Liang Attending Clinician Unav albert Ronquillo MD, Geovanna Attending Clinician [phone] Nicola Jimenez MD Attending Clinician [phone] Sophia Sarkar MA Attending Clinician UnavailARGELIA Ding Attending Clinician Unavailable Bita Suarez DPM Attending Clinician Argelia Tobias MD Attending Clinician [phone] Nenita Steven Attending Clinician Unacarlos alberto Marques BRINELL TESTER, Estevan Attending Clinician [phone] Eva Flannery OD Attending Clinician [phone] EVA FLANNERY Attending Clinician Unavailable MAYE PENA Attending Clinician Unavailab Amrita NAVARRETE, Bernarda Serrato Attending Clinician [phone] Maye Pena MD Attending Clinician [phone] MEENU LUTZ Attending Clinician Unavailable Nathan NAVARRETE, Dell Armenta Attending Clinician [phone] DELL ROCHA Attending Clinician Unavailable Nathan NAVARRETE, Dell Armenta Attending Clinician [phone] Prudencio MARSH, Eva Attending Clinician [phone] Micheline NAVARRETE, Argelia Attending Clinician +[phone] Darlyn Bansal MD Attending Clinician [phone] COLT CHANG Attending Clinician UnavailCOLT Riley Attending Clinician UnavailANGIE Álvarez Attending Clinician Unavailable Jorge ARBOLEDA, Angie Attending Clinician [phone] MILAGROS ADEN Attending Clinician Unavail able GABRIELLA CEBALLOS Attending Clinician Unavailable GABRIELLA CEBALLOS Attending Clinician Unavailable ZOE LEIVA Attending Clinician Unavailable ELBERT BOSTON Attending Clinician Unavailpayton Boston MD, Elbert Cohn Attending Clinician + [phone] Maryam Beard MD Attending Clinician +[phone] Hector Segal MD Attending Clinician +[phone] JANINE DE LA CRUZ Attending Clinician Unavaila UNIQUE Penaloza Attending Clinician Unavailable Lakshmi [facility] Attending Clinician [phone] [facility] Attending Clinician Unavailable Kary Fernandes MD Attending Clinician +[phone] KRISTYN ABDUL Attending Clinician Unavailable KRISTNY ABDUL Attending Clinician Unavailable Kristyn Abdul MD Attending Clinician [phone] BHAVIK JONES Attending Clinician UnavailKaylee Villanueva MD Attending Clinician [phone] Vivek Lutz MD Attending Clinician [phone] Bhavik Jones MD Attending Clinician +- [phone] Lab, [facility] Attending Clinician Unavailable Jono KUMARM, Janine A Attending Clinician [phone] ROSALEE DICKSON Attending Clinician Unavailable ROSALEE DICKSON Attending Clinician Unavailable Ultrasound, [facility] Attending Clinician Unavailpayton Dickson MD, Rosalee Locke Attending Clinician [phone] EVELYNE MANN Attending Clinician Unavailable Evelyne Mann MD Attending Clinician [phone] Doctor Unassigned, [place] Attending Clinician U navailable Fellow, [facility] Attending Clinician Unavai Blu Bettencourt DO Attending Clinician [phone] BLU RODGERS Attending Clinician Unavailable Keiko BAILON, Milagros Wilson Attending Clinician + SUSANNE PEDRAZA Attending Clinician Unavailhugo dexter 3, [facility] Attending Clinician Unavaila Susanne Abraham MD Attending Clinician +[phone] EbraAnsley Navarrete Attending Clinician [phone] Unknown, Attending Attending Clinician Unavailab ANSLEY Mliler Attending Clinician Unavailable Diamante Fernandes RN Attending Clinician UnavailYANNA Seals Attending Clinician Unavailable YANNA NGUYEN Attending Clinician Unavailable MINERVA YANG Attending Clinician Unav ailMinerva Weeks MD Attending Clinician + Wade Ku MD Attending Clinician [phone] Parisa Chao MD Attending Clinicia n Provider, [facility] Temp Attending Clinician Janet TONYA Richardson Attending Clinician Unavailable Tonya Hanna MD Attending Clinician [phone] Faculty, [facility] Attending Clinician Unava ilable 1, [facility] Attending Clinician UnavailCIARAN Sorenson Attending Clinician Unavailable Marilin Qureshi Attending Clinician UnavailCiaran Grimm MD Attending Clinician [phone] Lab, [facility] Attending Clinician Unavailable Patricia Conner MD, Argelia Attending Clinician + ARGELIA MOYA Attending Clinician Unav albert TRAYLOR, Shagufta Attending Clinician + [phone] Nakul SLAG SKIMMER, Tish Attending Clinician [phone] Viv SALDANA, Ya L Attending Clinician Unavail warren Bass MD, Meng Attending Clinician [phone] Mikel SLAG SKIMMER, Oliva Casiano Attending Clinician + [phone] OLIVA AMADOR Attending Clinician Unavailab le Janie, [facility] Nurse Attending Clinician Unava philly Valdes MD, Abraham Casiano Attending Clinician +[phone] Bradley NAVARRETE, Remedios Attending Clinician [phone] Mikki NAVARRETE, [place] Teixeira Attending Clinician + Daniel Devi Attending Clinician +[phone] KRISTYN ABDUL Admitting Clinician Unavailable ARGELIA MOYA Admitting Clinician Unav ARGELIA Junior Admitting Clinician Unavailable DELL ROCHA Admitting Clinician Unavailable Dell Rocha MD Admitting Clinician +[phone] GABRIELLA CEBALLOS Admitting Clinician Unavailable ELBERT BOSTON Admitting Clinician UnavailElbert Ken MD Admitting Clinician + [phone] Kristyn Abdul MD Admitting Clinician +[phone] MINERVA YANG Admitting Clinician Unav Minerva Pitts MD Admitting Clinician + TONYA HANNA Admitting Clinician Unavailable Tonya Hanna MD Admitting Clinician +[phone] Argelia Tobias MD Admitting Clinician +[phone] Susanne Pedraza MD Admitting Clinician +[phone] Patricia Conner MD, Argelia Admitting Clinician + Payers Payer Name Policy Type Policy Number Effective Date Expirati on Date Source [facility] [id number] 2019 00:00:00 [facility] [id number] 2024 00:00:00 [employer] [id number] 2018 00:00:00 Problems Condition Name Condition Details Condition Category Status Onset Date Resolution Date Last Treatment Date Treating Clinician Comments Source Blurring of vision Blurring of vision Disease Active 0 7-14 00:00: 00 [facility] Anemia, Anemia, Disease Active 0 5-30 00:00: 00 [facility] 38 weeks gestation of 38 weeks gestation of Disease Active 0 5-28 00:00: 00 [facility] 32 weeks gestation of 32 weeks gestation of Disease Active 0 4-16 00:00: 00 [facility] Other general counseling and advice for contracept berenice management Other general counseling and advice for contracept berenice management Disease Active 0 6-07 00:00: 00 [facility] (vaginal after ) (vaginal after ) Disease Active 2022-0 4-27 00:00: 00 [facility] Single live Single live Disease Active 2022-0 4-27 00:00: 00 [facility] Obstetrica l laceration Obstetrica l laceration Disease Active 0 4-27 00:00: 00 [facility] Single live Single live Disease Active 0 4-27 00:00: 00 [facility] Anemia of mother in , antepartum Anemia of mother in , antepartum Disease Active 0 1-30 00:00: 00 [facility] Cervical Papanicola ou smear negative within last 12 months Cervical Papanicola ou smear negative within last 12 months Disease Active 2021-04 00:00: 00 Overview: Formattin g of this note might be different from the original. Nil pap 06/2021 see scanned records [facility] Rubella non-immune status, antepartum Rubella non-immune status, antepartum Disease Active 0 9-30 00:00: 00 Overview: Formattin g of this note might be different from the original. Address pp [facility] Previous delivery affecting Previous delivery affecting Disease Active 01-12 00:00: 00 [facility] Multiple sclerosis affecting in third trimester Multiple sclerosis affecting in third trimester Disease Active 01-12 00:00: 00 Overview: Formattin g of this note might be different from the original. Last appt 12/05/21F ollow up appt on next week [facility] Latex allergy Latex allergy Disease Active 10-05 00:00: 00 Overview: Formattin g of this note might be different from the original. Rash and swelling reported [facility] (spontaneo us vaginal delivery) (spontaneo us vaginal delivery) Disease Active 10-05 00:00: 00 [facility] Anemia of mother in , antepartum Anemia of mother in , antepartum Disease Active 4- 00:00: 00 [facility] Obesity affecting in third trimester Obesity affecting in third trimester Disease Active 2017-04 0-30 00:00: 00 [facility] Obesity in Obesity in Disease Active 2017-04 0-30 00:00: 00 [facility] Routine follow-up Routine follow-up Disease Resolve d 5-17 00:00: 00 2022-09-20 00:00:00 2022-09-20 09:52:15 [facility] Anemia of mother in , antepartum Anemia of mother in , antepartum Disease Resolve d 1-30 00:00: 00 2022-08-30 00:00:00 2022-08-30 10:19:38 [facility] History of pre-eclamp mukund History of pre-eclamp mukund Disease Resolve d 01-12 00:00: 00 2022-08-30 00:00:00 2022-08-30 10:19:28 [facility] History of gestationa l diabetes History of gestationa l diabetes Disease Resolve d 01-12 00:00: 2022-08-30 00:00:00 2022-08-30 10:19:32 [facility] Desires (vaginal after ) trial Desires (vaginal after ) trial Disease Resolve d 9- 00:00: 00 2022-08-30 00:00:00 2022-08-30 10:19:35 [facility] 39 weeks gestation of 39 weeks gestation of Disease Resolve d 1- 00:00: 00 2022-08-30 00:00:00 2022-08-30 10:19:39 [facility] GBS (group B Streptococ cus carrier), +RV culture, 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 Passed early 3hr [facility] with history of with history of Disease Resolve d 9- 00:00: 00 2022-04-24 00:00:00 2022-04-24 10:31:52 [facility] Brain mass Brain mass Disease Resolve d 04-16 00:00: 00 2022-04-24 00:00:00 2022-04-24 10:31:33 Overview: Formattin g of this note might be different from the original. patient reports as benign cyst was followed up for several yrs no change,wa s told didn't need further f/u and had no restricti ons [facility] Left arm numbness Left arm numbness Disease Resolve d - 00:00: 00 2022-04-23 00:00:00 2022-04-23 00:02:29 [facility] Left sided numbness Left sided numbness Disease Resolve d 0 6-16 00:00: 00 2022-04-23 00:00:00 2022-04-23 00:02:28 [facility] Autoimmune disorder Autoimmune disorder Disease Resolve d 6-01 00:00: 00 2022-04-23 00:00:00 2022-04-23 00:02:31 [facility] Latex allergy Latex allergy Disease Resolve d 6-22 00:00: 00 2022-04-23 00:00:00 2022-04-23 00:01:44 Overview: Formattin g of this note might be different from the original. Rash and swelling reported [facility] Multiparit y Multiparit y Disease Resolve d 2017-04 0-30 00:00: 00 2022-04-23 00:00:00 2022-04-23 00:01:41 [facility] Supervisio n of high risk , antepartum Supervisio n of high risk , antepartum Disease Resolve d 6-27 00:00: 00 2022-04-23 00:00:00 2022-04-23 00:02:27 [facility] Other general counseling and advice for contracept berenice management Other general counseling and advice for contracept berenice management Disease Resolve d 7-07 00:00: 00 2022-01-12 00:00:00 2022-01-12 11:00:01 [facility] Multiple sclerosis Multiple sclerosis Disease Resolve d 6-19 00:00: 00 2022-01-12 00:00:00 2022-01-12 11:00:13 [facility] care and examinatio n immediatel y after delivery care and examinatio n immediatel y after delivery Disease Resolve d 3-02 00:00: 00 2022-01-12 00:00:00 2022-01-12 11:00:12 [facility] Obesity (BMI 30-39.9) Obesity (BMI 30-39.9) Disease Resolve d 0 1-28 00:00: 00 2022-01-12 00:00:00 2022-01-12 10:59:57 [facility] 37 weeks gestation of 37 weeks gestation of Disease Resolve d 2020-0 1-15 00:00: 00 2022-01-12 00:00:00 2022-01-12 10:58:32 [facility] Breech presentati on, single or unspecifie d fetus Breech presentati on, single or unspecifie d fetus Disease Resolve d 2020-0 1-13 00:00: 00 2022-01-12 00:00:00 2022-01-12 10:58:51 [facility] Need for Tdap vaccinatio n Need for Tdap vaccinatio n Disease Resolve d 2019-04 1-17 00:00: 00 2022-01-12 00:00:00 2022-01-12 10:59:54 [facility] Nausea Nausea Disease Resolve d 8-11 00:00: 00 2022-01-12 00:00:00 2022-01-12 10:59:53 [facility] Abnormal maternal glucose tolerance, antepartum Abnormal maternal glucose tolerance, antepartum Disease Resolve d 0 8-11 00:00: 00 2022-01-12 00:00:00 2022-01-12 10:58:35 [facility] Yeast infection of the skin Yeast infection of the skin Disease Resolve d 2019-0 6-04 00:00: 00 2022-01-12 00:00:00 2022-01-12 11:00:57 [facility] BMI 37.0-37.9, adult BMI 37.0-37.9, adult Disease Resolve d 2018- 8-08 00:00: 00 2022-01-12 00:00:00 2022-01-12 10:58:42 [facility] Anemia of mother in , antepartum Anemia of mother in , antepartum Disease Resolve d 2018-0 4-01 00:00: 00 2022-01-12 00:00:00 2022-01-12 10:58:36 [facility] Heartburn during in second trimester Heartburn during in second trimester Disease Resolve d 07-12 00:00: 00 2022-01-12 00:00:00 2022-01-12 10:58:53 [facility] Anemia of mother in , condition Anemia of mother in , condition Disease Resolve d 10-10 00:00: 00 2022-01-12 00:00:00 2022-01-12 10:58:38 Overview: Formattin g of this note might be different from the original. ICD10 Diagnosis Term Roll Hand Utility [facility] care and examinatio n of lactating mother care and examinatio n of lactating mother Disease Resolve d 10-28 00:00: 00 2018-11-21 00:00:00 2018-11-21 13:15:48 [facility] 39 weeks gestation of 39 weeks gestation of Disease Resolve d 10-05 00:00: 00 2018-10-28 00:00:00 2018-10-28 09:17:01 [facility] Disease Resolve d 10-05 00:00: 00 2018-10-28 00:00:00 2018-10-28 09:17:04 [facility] Liveborn by vaginal delivery Liveborn by vaginal delivery Disease Resolve d 10-05 00:00: 00 2018-10-28 00:00:00 2018-10-28 09:17:06 [facility] Perineal laceration , first degree Perineal laceration , first degree Disease Resolve d 10-05 00:00: 00 2018-10-28 00:00:00 2018-10-28 09:17:07 [facility] Positive GBS test Positive GBS test Disease Resolve d 09-25 00:00: 00 2018-10-28 00:00:00 2018-10-28 09:17:00 [facility] Normal spontaneou s vaginal delivery Normal spontaneou s vaginal delivery Disease Resolve d 10-10 00:00: 00 2018-10-28 00:00:00 2018-10-28 09:16:48 [facility] Pruritus Pruritus Disease Resolve d 2019-0 3-29 00:00: 00 2018-10-05 00:00:00 2018-10-05 07:47:05 [facility] Vaginal discharge Vaginal discharge Disease Resolve d 2018- 2-15 00:00: 00 2018-10-05 00:00:00 2018-10-05 07:46:57 [facility] Low-lying placenta Low-lying placenta Disease Resolve d 2018- 2-04 00:00: 00 2018-10-05 00:00:00 2018-10-05 07:46:21 [facility] Influenza vaccinatio n declined Influenza vaccinatio n declined Disease Resolve d 2017-04-20 00:00: 00 2018-10-05 00:00:00 2018-10-05 07:46:55 [facility] BMI 36.0-36.9, adult BMI 36.0-36.9, adult Disease Resolve d 2017-04 00:00: 00 2018-04-04 00:00:00 2018-04-04 13:11:14 [facility] General counseling for prescripti on of oral contracept rosa isela General counseling for prescripti on of oral contracept rosa isela Disease Resolve d 07-26 00:00: 00 2018-02-12 00:00:00 2018-02-12 14:23:27 [facility] Overweight Overweight Disease Resolve d 07-26 00:00: 00 2018-02-12 00:00:00 2018-02-12 14:23:30 [facility] Chlamydia trachomati s infection of lower genitourin nory sites Chlamydia trachomati s infection of lower genitourin nory sites Disease Resolve d 2013-04 1-04 00:00: 00 2015-07-27 00:00:00 2021-10-30 00:32:59 [facility] Brain mass Brain mass Disease Resolve d 3- 00:00: 00 2015-07-27 00:00:00 2015-07-27 12:44:38 [facility] Dizziness and giddiness Dizziness and giddiness Disease Resolve d 3-13 00:00: 00 2015-07-27 00:00:00 2015-07-27 12:44:32 [facility] Second-deg ree perineal laceration , with delivery Second-deg ree perineal laceration , with delivery Disease Resolve d 10-10 00:00: 00 2013-06-26 00:00:00 2013-06-26 16:44:18 [facility] Allergies, Adverse Reactions, Alerts Allergy Name Allergy Type Status Severity Reaction(s) Onset Date Inactive Date Treating Clinician Comments Source latex Propensi ty to adverse reaction to drug Active 12-04 00:00: 00 [facility] Latex Gloves Large Propensi ty to adverse reaction to drug Active 12-13 00:00: 00 [facility] LATEX DRUG INGREDI Active Rash 2017-04 00:00: 00 [facility] Latex Propensi ty to adverse reaction s Active Swelling 2017-04 00:00: 00 [facility] Family History Family Member Diagnosis Comments Start Date Stop Date Sourc e Maternal grandmother Diabetes [facility] Maternal grandmother Hypertension [facility] Paternal grandmother Diabetes [facility] Paternal grandmother Pancreatic Cancer [facility] Social History Social Habit Start Date Stop Date Quantity Comments Source Sexual orientation [facility] Gender identity [facility] ASSERTION Possible Merged With [facility] Alcoholic beverage intake 2024-11-11 00:00:00 2024-11-11 00:00:00 0 /d [facility] History of Social function 2023-10-19 00:00:00 2023-10-19 00:00:00 [facility] Alcohol intake 2023-08-14 00:00:00 2023-08-14 00:00:00 0 /d [facility] Exposure to SARS-CoV-2 (event) 2022-08-20 00:00:00 2022-08-30 10:06:00 Not sure [facility] Tobacco use and exposure 2022-01-12 00:00:00 2022-01-12 00:00:00 Smokeless tobacco non-user [facility] Sex assigned at 1990 00:00:00 1990 00:00:00 Merged With [facility] Smoking Status Start Date Stop Date Source Never smoked tobacco [facility] Medications Ordered Medication Name Filled Medication Name Start Date Stop Date Current Medication? Ordering Clinician Indication Dosage Frequency Signature (SIG) Comments Components Source metronidazo le 500 mg tablet 10-20 00:00: 00 Yes 1mg [facility] acyclovir 5 % topical ointment 07-23 00:00: 00 Yes 1% [facility] Valtrex 500 mg tablet 07-23 00:00: 00 Yes 1mg [facility] medroxyprog esterone 150 mg/mL intramuscul ar suspension 07-21 00:00: 00 Yes mg/mL [facility] terbinafine HCL 250 mg tablet 2023-04 00:00: 00 Yes [id number] 250mg Take 1 tablet by mouth in the morning. [facility] efinaconazo le 10 % topical solution 2023-04 00:00: 00 Yes [id number] Apply to area(s) daily. [facility] gadoteridol (PROHANCE-1 5 mL) injection 0.2 mL/kg 2023-04 19:45: 00 02-12 19:39 :00 No [id number] .2mL/kg 0.2 mL/kg, Intravenou s, ONCE, 1 dose, On Sun02/13/24 at 1445, Routine [facility] gadoteridol (PROHANCE-1 5 mL) injection 0.2 mL/kg 2023-04 19:45: 00 02-11 19:35 :00 No [id number] .2mL/kg 0.2 mL/kg, Intravenou s, ONCE, 1 dose, On Sun02/12/24 at 1445, Routine [facility] tretinoin 0.025 % cream 01-10 00:00: 00 Yes [id number] 6 Apply to area(s) at bedtime. [facility] fluconazole 150 mg tablet 01-10 00:00: 00 01-18 04:59 :00 No [id number] 150mg Take 1 tablet by mouth every 72 (seventy-t wo) hours for 3 doses. [facility] metronidazo le 500 mg tablet 820 00:00: 00 Yes 1mg [facility] pantoprazol e (PROTONIX) EC tablet 40 mg 10-27 14:00: 00 Yes 40mg [facility] Sliding Scale Insulin - Lispro (HumaLOG) 10-27 13:00: 00 Yes Subcutaneo us, TID MEALS+HS, First dose on Sun10/28/23 at 0800, Until Discontinu ed, Routine [facility] glucagon (GLUCAGEN DIAGNOSTIC KIT) injection 1 mg 10-27 11:10: 49 Yes 1mg 1 mg, Intramuscu lar, PRN, Starting on Sun10/28/23 at 0610, Until Discontinu ed, EROS, Blood Glucose < or = 70 mg/dL and patient is NPO, unable to swallow or has mental changes. [facility] dextrose 50 % in water (D50W) injection 25 mL 10-27 11:10: 49 Yes 25mL 25 mL, Slow IV Push, PRN, Starting on Sun10/28/23 at 0610, Until Discontinu ed, EROS, Blood Glucose < or = 70 mg/dL and patient is NPO, unable to swallow or has mental status changes. [facility] heparin (porcine) injection 5,000 Units 10-27 11:00: 00 Yes 5000U [facility] methylPREDN ISolone sodium succinate (SOLU-MEDRO L) 1,000 mg in D5W 250 mL VIAL-MATE IV piggyback 10-27 07:45: 00 10-30 07:44 :00 No 1000mg 1,000 mg, Intravenou s, Q24H, 3 doses, First dose on Sun10/28/23 at 0245, Last dose on Sun10/30/23 at 0245, Administer over 60 Minutes, 250 mL [facility] NaCl 0.9% (NS) IV infusion 1,000 mL 10-27 06:45: 00 Yes 1000mL at 100 mL/hr, IV Infusion, CONTINUOUS , Starting on Sun10/28/23 at 0145, Until Discontinu ed, Routine [facility] acetaminoph en (TYLENOL) tablet 650 mg 10-27 06:31: 05 Yes 650mg [facility] docusate (COLACE) capsule 100 mg 10-27 06:31: 05 Yes 100mg [facility] predniSONE 50 mg tablet 10-27 00:00: 00 Yes [id number] 1250mg Take 25 tablets by mouth in the morning. [facility] [id number] fum-folic 27 mg iron- 1 mg folic tablet [id number] fum-folic 27 mg iron- 1 mg folic tablet 09-12 00:00: 00 Yes [id number] 1{tbl} Take 1 tablet by mouth in the morning. [facility] ferrous sulfate 325 mg (65 mg iron) tablet ferrous sulfate 325 mg (65 mg iron) tablet 09-12 00:00: 00 Yes [id number] 325mg Take 1 tablet by mouth in the morning. [facility] docusate 100 mg capsule 09-12 00:00: 00 01-10 00:00 :00 No [id number] 200mg Take 2 capsules by mouth once daily as needed for Constipati on. [facility] ibuprofen 800 mg tablet 09-12 00:00: 00 01-10 00:00 :00 No [id number] 800mg Take 1 tablet by mouth every 8 (eight) hours as needed (pain). Take with food or milk. [facility] rho(D) immune globulin (HYPERRHO/R HOGAM) syringe 300 mcg 09-11 09:09: 17 Yes 300ug [facility] ibuprofen (IBU) tablet 600 mg 09-11 09:09: 14 Yes 600mg 600 mg, Oral, Q6HPRN, Starting on Sun09/12/23 at 0409, Until Discontinu ed, Routine, Pain (scale 4-6) [facility] acetaminoph en (TYLENOL) tablet 650 mg 09-11 09:09: 14 Yes 650mg 650 mg, Oral, Q6HPRN, Starting on Sun09/12/23 at 0409, Until Discontinu ed, Routine, Pain (scale 1-3) [facility] diphenhydrA MINE (BENADRYL) tablet 25 mg 09-11 09:09: 14 Yes 25mg [facility] ondansetron (ZOFRAN (PF)) injection 4 mg 09-11 09:09: 14 Yes 4mg [facility] simethicone (GAS RELIEF (SIMETHICON E)) chewable tablet 160 mg 09-11 09:09: 14 Yes 160mg [facility] docusate (COLACE) capsule 200 mg 09-11 09:09: 14 Yes 200mg 200 mg, Oral, QDAILYPRN, Starting on Sun09/12/23 at 0409, Until Discontinu ed, Routine, Constipati on [facility] magnesium hydroxide (MILK OF MAGNESIA) 400 mg/5 mL suspension 30 mL 09-11 09:09: 14 Yes 30mL [facility] benzocaine- menthol (DERMOPLAST ) 20-0.5 % topical spray 09-11 09:09: 13 Yes Topical, PRN, Starting on Sun09/12/23 at 0409, Until Discontinu ed, Routine, Perineum discomfort [facility] oxytocin (PITOCIN) 30 units in NS 500 mL IV infusion 09-11 07:40: 20 09-11 09:09 :16 No 300mL/h 300 mL/hr, IV Infusion, SEE-INSTRU CTIONS, Starting on Sun09/12/23 at 0240, Start at 300 mL/hr for 1 hr then 150 mL/hr for 1 hr. For post delivery uterotonic . [facility] ropivacaine 0.2 % (NAROPIN (PF)) epidural infusion 09-11 05:45: 00 09-12 14:18 :16 No Epidural, CONTINUOUS PRN, Starting on Sun09/12/23 at 0045, Until Kalie 09/13/23 at 0918, Routine, Intra-op [facility] acetaminoph en (TYLENOL) tablet 1,000 mg 09-11 05:45: 00 09-11 05:46 :00 No 1000mg 1,000 mg, Oral, ONCE, 1 dose, On Sun09/12/23 at 0045, Routine [facility] lactated ringers IV infusion 500 mL 09-11 05:45: 00 09-11 05:26 :00 No 500mL at 999 mL/hr, 500 mL, IV Infusion, ONCE, 1 dose, On Sun09/12/23 at 0045, Routine [facility] lidocaine-e pinephrine (XYLOCAINE W/EPINEPHRI NE) 1.5 %-1:200,000 injection 09-11 05:35: 00 09-12 14:18 :16 No Epidural, ONCE INTRA PROCEDURE, Starting on Sun09/12/23 at 0035, Until Kalie 09/13/23 at 0918, Routine, Intra-op [facility] oxytocin (PITOCIN) 30 units in NS 500 mL IV infusion 09-11 04:29: 38 09-11 09:09 :16 No 2mU/min at 2-40 mL/hr, IV Infusion, TITRATE, Starting on Sun09/11/23 at 2329, Until Sun09/12/23 at 0409, EROS [facility] sodium citrate-cit keara acid (BICITRA) 500-334 mg/5 mL solution 30 mL 09-11 04:28: 19 09-11 04:54 :00 No 30mL 30 mL, Oral, PRE-PROCED URE ONCE, 1 dose, Starting on Sun09/11/23 at 2328, Until Sun09/11/23 at 2354, Routine, Surgery/Pr ocedure [facility] D5W-LR IV infusion 1,000 mL 09-11 04:28: 19 09-11 09:09 :16 No 1000mL at 1-125 mL/hr, IV Infusion, TITRATE, Starting on Sun09/11/23 at 2328, Until Sun09/12/23 at 0409, Routine [facility] Nitrofurant oin&Nit. Macrocryst 100 mg capsule 08-06 00:00: 00 09-12 00:00 :00 No [id number] 100mg Take 1 capsule by mouth in the morning and 1 capsule in the evening. [facility] ampicillin 500 mg capsule 17 00:00: 00 08-11 04:59 :00 No [id number] 500mg Take 1 capsule by mouth every 8 (eight) hours for 10 days. [facility] metroNIDAZO LE 250 mg tablet 16 00:00: 00 08-07 04:59 :00 No [id number] 500mg Take 2 tablets by mouth every 12 (twelve) hours for 7 days. [facility] ferrous sulfate (IRON, FERROUS SULFATE,) 325 mg (65 mg iron) tablet 07-16 00:00: 00 09-12 00:00 :00 No [id number] 325mg Take 1 tablet by mouth in the morning. [facility] vit 33-iron-fol ic-dha (SELECT-OB + DHA) 29 mg iron-1 mg -250 mg combo pack 04-17 00:00: 00 09-12 00:00 :00 No Take 1 combo pack daily [facility] vit no.130-iron -folic ( VITAMIN) 2022-04 00:00: 00 04-17 00:00 :00 No [id number] 1{tbl} Take 1 tablet by mouth in the morning. [facility] 1 TABLET PO BID 2022-04 00:00: 00 07-10 00:00 :00 No 500 Clint De Leon AMOXICILLIN 875 MG TABS 2022-04 00:00: 00 Yes Clint F Moises amoxicillin 875 mg tablet 2022-04 00:00: 00 02-20 05:59 :00 No [id number] 875mg Take 1 tablet by mouth in the morning and 1 tablet in the evening. Do all this for 10 days. [facility] 1 TABLET PO BID 8-30 00:00: 00 07-10 00:00 :00 No 500 Clint De Leon predniSONE 50 mg tablet 09-19 00:00: 00 09-20 00:00 :00 No [id number] 500mg Take 10 tablets by mouth in the morning for 3 days. [facility] predniSONE 50 mg tablet - 00:00: 09-19 04:59 :00 No [id number] 500mg Take 10 tablets by mouth in the morning for 3 days. [facility] Acetaminoph en-Caffeine 500-65 mg Tab 5- 00:00: 00 09-20 00:00 :00 No [id number] 1{tbl} Take 1 tablet by mouth every 4 (four) hours as needed for Pain (scale 4-6) or Pain (scale 7-10). [facility] lactated ringers IV infusion 500 mL 08-10 16:30: 00 08-10 16:37 :45 No 500mL at 999 mL/hr, 500 mL, Intravenou s, ONCE, 1 dose, On Sun08/10/22 at 1130, Routine [facility] butalbital- acetaminoph en-caff (ESGIC) 50-325-40 mg tablet 1 tablet 08-10 15:45: 00 08-11 00:59 :00 No 1{tbl} 1 tablet, Oral, Q4H, 3 doses, First dose on Sun08/10/22 at 1045, Last dose on Sun08/10/22 at 1600, Routine [facility] caffeine tablet 200 mg 08-10 15:45: 00 08-11 00:59 :00 No 200mg 200 mg, Oral, Q4H, 3 doses, First dose on Sun08/10/22 at 1045, Last dose on Sun08/10/22 at 1600, Routine [facility] rho(D) immune globulin (RHOGAM) syringe 300 mcg 08-10 02:56: 12 Yes 300ug 300 mcg, Intramuscu lar, ONCE, For 1 dose, Conditiona l, Routine [facility] ibuprofen (IBU) tablet 600 mg 08-10 02:56: 07 Yes 600mg 600 mg, Oral, Q6HPRN, Starting on Sun08/09/22 at 2155, Until Discontinu ed, Routine, Pain (scale 4-6) [facility] acetaminoph en (TYLENOL) tablet 650 mg 08-10 02:56: 07 Yes 650mg 650 mg, Oral, Q6HPRN, Starting on Sun08/09/22 at 2155, Until Discontinu ed, Routine, Pain (scale 1-3) [facility] diphenhydrA MINE (BENADRYL) tablet 25 mg 08-10 02:56: 07 Yes 25mg 25 mg, Oral, Q6HPRN, Starting on Sun08/09/22 at 2155, Until Discontinu ed, Routine, Sleep, Itching [facility] ondansetron (ZOFRAN (PF)) injection 4 mg 08-10 02:56: 07 Yes 4mg 4 mg, Slow IV Push, Q8HPRN, Starting on Sun08/09/22 at 2155, Until Discontinu ed, Routine, Nausea and Vomiting (N/V) [facility] simethicone (GAS RELIEF (SIMETHICON E)) chewable tablet 160 mg 08-10 02:56: 07 Yes 160mg 160 mg, Oral, PC+HSPRN, Starting on Sun08/09/22 at 2155, Until Discontinu ed, Routine, [facility] docusate (COLACE) capsule 200 mg 08-10 02:56: 07 Yes 200mg 200 mg, Oral, QDAILYPRN, Starting on Sun08/09/22 at 2155, Until Discontinu ed, Routine, Constipati on [facility] magnesium hydroxide (MILK OF MAGNESIA) 400 mg/5 mL suspension 30 mL 08-10 02:56: 07 Yes 30mL 30 mL, Oral, QDAILYPRN, Starting on Sun08/09/22 at 2156, Until Discontinu ed, Routine, Constipati on [facility] benzocaine- menthol (DERMOPLAST ) 20-0.5 % topical spray 08-10 02:56: 07 Yes Topical, PRN, Starting on Sun08/09/22 at 2156, Until Discontinu ed, Routine, Perineum discomfort [facility] oxytocin (PITOCIN) 30 units in NS 500 mL IV infusion 08-10 00:07: 05 08-10 02:56 :10 No 600mL/h 600 mL/hr, IV Infusion, PRN, For post delivery uterine atony., Starting on Sun08/09/[address] at 600 mL/hr for 1 hr then 150 mL/hr for 1 hr.
[facility] ibuprofen (IBU) tablet 600 mg 08-10 00:07: 05 08-10 02:56 :10 No 600mg 600 mg, Oral, Q6HPRN, Starting on Sun08/09/22 at 1907, Until Sun08/09/22 at 2155, Routine, Pain (scale 4-6) [facility] [id number]-[id number] fum-folic 27 mg iron- 1 mg folic tablet 08-10 00:00: 00 09-20 00:00 :00 No [id number] 03 1{tbl} Take 1 tablet by mouth in the morning. [facility] docusate 100 mg capsule 08-10 00:00: 00 09-20 00:00 :00 No [id number] 03 200mg Take 2 capsules by mouth once daily as needed for Constipati on. [facility] ferrous sulfate 325 mg (65 mg iron) tablet 08-10 00:00: 00 09-20 00:00 :00 No [id number] 03 325mg Take 1 tablet by mouth in the morning. [facility] ibuprofen 600 mg tablet 08-10 00:00: 00 09-20 00:00 :00 No [id number] 03 600mg Take 1 tablet by mouth every 6 (six) hours as needed (Pain). Take with food or milk. [facility] ropivacaine 0.2 % (NAROPIN (PF)) epidural infusion 08-09 22:39: 00 08-10 01:32 :14 No Epidural, CONTINUOUS PRN, Starting on Sun08/09/22 at 1739, Until Sun08/09/22 at 2031, Routine, Intra-op [facility] lidocaine-e pinephrine (XYLOCAINE W/EPINEPHRI NE) 1.5 %-1:200,000 injection 08-09 22:35: 00 08-10 01:32 :14 No Intraderma l, ONCE INTRA PROCEDURE, Starting on Sun08/09/22 at 1735, Until Sun08/09/22 at 2031, Routine, Intra-op [facility] oxytocin (PITOCIN) 30 units in NS 500 mL IV infusion 08-09 20:13: 23 08-10 02:56 :10 No 2mU/min at 2-40 mL/hr, IV Infusion, TITRATE, Starting on Sun08/09/22 at 1513, Until Sun08/09/22 at 215, EROS [facility] lactated ringers IV infusion 500 mL 08-09 18:43: 00 08-10 02:56 :10 No 500mL at 999 mL/hr, 500 mL, IV Infusion, PRN - SEE INSTRUCTIO NS, Starting on Sun08/09/22 at 1343, Until Sun08/09/22 at 2155, Routine [facility] D5W-LR IV infusion 1,000 mL 08-09 18:43: 00 08-10 02:56 :10 No 1000mL at 1-125 mL/hr, IV Infusion, TITRATE, Starting on Sun08/09/22 at 1343, Until Sun08/09/22 at 2155, Routine [facility] sodium citrate-cit keara acid (BICITRA) 500-334 mg/5 mL solution 30 mL 08-09 18:43: 00 08-09 21:04 :00 No 30mL 30 mL, Oral, PRE-PROCED URE ONCE, 1 dose, Starting on Sun08/09/22 at 1343, Until Discontinu ed, Routine, Surgery/Pr ocedure [facility] fingolimod 0.5 mg Cap 07-21 00:00: 00 09-20 00:00 :00 No [id number] .5mg Take 0.5 mg by mouth in the morning for 180 days. [facility] TAKE 1 TABLET BY MOUTH EVERY 12 HOURS 06-26 00:00: 00 07-10 00:00 :00 No [facility] De [facility] metroNIDAZO LE (FLAGYL) 500 mg tablet 06-26 00:00: 00 08-10 00:00 :00 No [id number] 9109 500mg Take 1 tablet by mouth every 12 (twelve) hours. [facility] ascorbic acid, vitamin C, 500 mg tablet 05-15 00:00: 00 08-10 00:00 :00 No [id number] 500mg Take 1 tablet by mouth in the morning and 1 tablet at noon and 1 tablet in the evening. [facility] ferrous sulfate 325 mg (65 mg iron) tablet 05-15 00:00: 00 08-10 00:00 :00 No [id number] 325mg Take 1 tablet by mouth in the morning and 1 tablet in the evening. [facility] iron bis-gly/FA/ C/B12/Ca/sosa cc (IRON-150 ORAL) 05-13 15:00: 12 05-13 00:00 :00 No Take by mouth. [facility] Prenat Vit Comb.10-Iro n-FA-DHA (VITAFOL-OB +DHA) 65-1-250 mg combo pack 1-18 00:00: 00 08-10 00:00 :00 No [id number] 1{packa ge} Take 1 Package by mouth daily. [facility] iron bis-gly/FA/ C/B12/Ca/sosa cc (IRON-150 ORAL) 9- 10:07: 11 Yes Take by mouth. [facility] multivitami n ( VITAMIN) tablet 9-29 00:00: 00 05-03 00:00 :00 No [id number] 1{tbl} Take 1 tablet by mouth in the morning. [facility] SELECT-OB + DHA 29 mg iron-1 mg -250 mg combo pack 9-28 00:00: 00 05-03 00:00 :00 No [facility] gadoteridol (PROHANCE-1 5 mL) injection 0.2 mL/kg 11-06 21:45: 00 11-06 21:40 :00 No [id number] .2mL/kg 0.2 mL/kg, Intravenou s, ONCE, 1 dose, On 11/06/21 at 1645, Routine [facility] iron bis-gly/FA/ C/B12/Ca/sosa cc (IRON-150 ORAL) 10-14 14:22: 17 Yes Take by mouth. [facility] dimethyl fumarate (TECFIDERA) 120 mg (14)- 240 mg (46) CpDR 10-14 00:00: 00 10-14 00:00 :00 No [id number] Take 120 mg by mouth 2 (two) times daily for 7 days, THEN 240 mg 2 (two) times daily for 120 days. [facility] norgestimat e-ethinyl estradioL 0.18/0.215/ 0.25 mg-25 mcg tablet 10-20 00:00: 00 04-23 00:00 :00 No [id number] 1{tbl} Take 1 tablet by mouth daily. [facility] Immunizations Ordered Immunization Name Filled Immunization Name Date Status Comments Source MMR 2024-01-08 10:30:00 Completed [facility] Rubella 2024-01-08 10:30:00 Completed [facility] TDAP 2024-01-08 10:30:00 Completed [facility] Varicella (varivax)(chicken pox) 2024-01-08 10:30:00 Completed [facility] TDAP 2023-11-29 15:00:00 Completed [facility] TDAP 2023-10-19 11:30:00 Completed [facility] MMR 2023-09-14 16:55:00 Completed [facility] Rubella 2023-09-14 16:55:00 Completed [facility] TDAP 2023-09-14 16:55:00 Completed [facility] Varicella (varivax)(chicken pox) 2023-09-14 16:55:00 Completed [facility] MMR 2023-09-12 00:07:00 Completed [facility] Rubella 2023-09-12 00:07:00 Completed [facility] Varicella (varivax)(chicken pox) 2023-09-12 00:07:00 Completed [facility] TDAP 2023-09-12 00:07:00 Completed [facility] MMR 2023-09-11 22:05:00 Completed [facility] Rubella 2023-09-11 22:05:00 Completed [facility] TDAP 2023-09-11 22:05:00 Completed [facility] Varicella (varivax)(chicken pox) 2023-09-11 22:05:00 Completed [facility] MMR 2023-09-04 15:30:00 Completed [facility] Rubella 2023-09-04 15:30:00 Completed [facility] TDAP 2023-09-04 15:30:00 Completed [facility] Varicella (varivax)(chicken pox) 2023-09-04 15:30:00 Completed [facility] MMR 2023-08-28 10:45:00 Completed [facility] Rubella 2023-08-28 10:45:00 Completed [facility] TDAP 2023-08-28 10:45:00 Completed [facility] Varicella (varivax)(chicken pox) 2023-08-28 10:45:00 Completed [facility] MMR 2023-08-28 00:00:00 Completed [facility] Rubella 2023-08-28 00:00:00 Completed [facility] TDAP 2023-08-28 00:00:00 Completed [facility] Varicella (varivax)(chicken pox) 2023-08-28 00:00:00 Completed [facility] MMR 2023-08-23 00:00:00 Completed [facility] Rubella 2023-08-23 00:00:00 Completed [facility] TDAP 2023-08-23 00:00:00 Completed [facility] Varicella (varivax)(chicken pox) 2023-08-23 00:00:00 Completed [facility] MMR 2023-08-14 11:15:00 Completed [facility] Rubella 2023-08-14 11:15:00 Completed [facility] Varicella (varivax)(chicken pox) 2023-08-14 11:15:00 Completed [facility] TDAP 2023-08-14 11:15:00 Completed [facility] MMR 2023-08-14 10:45:00 Completed [facility] Rubella 2023-08-14 10:45:00 Completed [facility] TDAP 2023-08-14 10:45:00 Completed [facility] Varicella (varivax)(chicken pox) 2023-08-14 10:45:00 Completed [facility] MMR 2023-08-07 00:00:00 Completed [facility] Rubella 2023-08-07 00:00:00 Completed [facility] TDAP 2023-08-07 00:00:00 Completed [facility] Varicella (varivax)(chicken pox) 2023-08-07 00:00:00 Completed [facility] MMR 2023-08-07 00:00:00 Completed [facility] Rubella 2023-08-07 00:00:00 Completed [facility] TDAP 2023-08-07 00:00:00 Completed [facility] Varicella (varivax)(chicken pox) 2023-08-07 00:00:00 Completed [facility] MMR 2023-08-01 00:00:00 Completed [facility] Rubella 2023-08-01 00:00:00 Completed [facility] TDAP 2023-08-01 00:00:00 Completed [facility] Varicella (varivax)(chicken pox) 2023-08-01 00:00:00 Completed [facility] MMR 2023-07-31 12:35:00 Completed [facility] Rubella 2023-07-31 12:35:00 Completed [facility] TDAP 2023-07-31 12:35:00 Completed [facility] Varicella (varivax)(chicken pox) 2023-07-31 12:35:00 Completed [facility] MMR 2023-07-31 11:15:00 Completed [facility] Rubella 2023-07-31 11:15:00 Completed [facility] Varicella (varivax)(chicken pox) 2023-07-31 11:15:00 Completed [facility] TDAP 2023-07-31 11:15:00 Completed [facility] 2023-07-17 10:45:00 Completed [facility] Rubella 2023-07-17 10:45:00 Completed [facility] TDAP 2023-07-17 10:45:00 Completed [facility] Varicella (varivax)(chicken pox) 2023-07-17 10:45:00 Completed [facility] 2023-07-17 00:00:00 Completed [facility] Rubella 2023-07-17 00:00:00 Completed [facility] TDAP 2023-07-17 00:00:00 Completed [facility] Varicella (varivax)(chicken pox) 2023-07-17 00:00:00 Completed [facility] MMR 2023-07-09 14:45:00 Completed [facility] Rubella 2023-07-09 14:45:00 Completed [facility] Varicella (varivax)(chicken pox) 2023-07-09 14:45:00 Completed [facility] TDAP 2023-07-09 14:45:00 Completed [facility] MMR 2023-06-29 10:30:00 Completed [facility] Rubella 2023-06-29 10:30:00 Completed [facility] TDAP 2023-06-29 10:30:00 Completed [facility] Varicella (varivax)(chicken pox) 2023-06-29 10:30:00 Completed [facility] MMR 2023-06-22 00:00:00 Completed [facility] Rubella 2023-06-22 00:00:00 Completed [facility] TDAP 2023-06-22 00:00:00 Completed [facility] Varicella (varivax)(chicken pox) 2023-06-22 00:00:00 Completed [facility] MMR 2023-06-21 13:00:00 Completed [facility] Rubella 2023-06-21 13:00:00 Completed [facility] TDAP 2023-06-21 13:00:00 Completed [facility] Varicella (varivax)(chicken pox) 2023-06-21 13:00:00 Completed [facility] MMR 2023-06-12 10:30:00 Completed [facility] Rubella 2023-06-12 10:30:00 Completed [facility] TDAP 2023-06-12 10:30:00 Completed [facility] Varicella (varivax)(chicken pox) 2023-06-12 10:30:00 Completed [facility] 2023-05-25 00:00:00 Completed [facility] Rubella 2023-05-25 00:00:00 Completed [facility] TDAP 2023-05-25 00:00:00 Completed [facility] Varicella (varivax)(chicken pox) 2023-05-25 00:00:00 Completed [facility] MMR 2023-05-24 11:00:00 Completed [facility] Rubella 2023-05-24 11:00:00 Completed [facility] TDAP 2023-05-24 11:00:00 Completed [facility] Varicella (varivax)(chicken pox) 2023-05-24 11:00:00 Completed [facility] MMR 2023-05-15 11:00:00 Completed [facility] Rubella 2023-05-15 11:00:00 Completed [facility] TDAP 2023-05-15 11:00:00 Completed [facility] Varicella (varivax)(chicken pox) 2023-05-15 11:00:00 Completed [facility] MMR 2023-05-15 10:30:00 Completed [facility] Rubella 2023-05-15 10:30:00 Completed [facility] TDAP 2023-05-15 10:30:00 Completed [facility] Varicella (varivax)(chicken pox) 2023-05-15 10:30:00 Completed [facility] MMR 2023-04-27 00:00:00 Completed [facility] Rubella 2023-04-27 00:00:00 Completed [facility] TDAP 2023-04-27 00:00:00 Completed [facility] Varicella (varivax)(chicken pox) 2023-04-27 00:00:00 Completed [facility] MMR 2023-04-26 09:00:00 Completed [facility] Rubella 2023-04-26 09:00:00 Completed [facility] TDAP 2023-04-26 09:00:00 Completed [facility] Varicella (varivax)(chicken pox) 2023-04-26 09:00:00 Completed [facility] 2023-04-21 00:00:00 Completed [facility] Rubella 2023-04-21 00:00:00 Completed [facility] TDAP 2023-04-21 00:00:00 Completed [facility] Varicella (varivax)(chicken pox) 2023-04-21 00:00:00 Completed [facility] MMR 2023-04-16 00:00:00 Completed [facility] Rubella 2023-04-16 00:00:00 Completed [facility] TDAP 2023-04-16 00:00:00 Completed [facility] Varicella (varivax)(chicken pox) 2023-04-16 00:00:00 Completed [facility] MMR 2023-04-13 12:45:00 Completed [facility] Rubella 2023-04-13 12:45:00 Completed [facility] TDAP 2023-04-13 12:45:00 Completed [facility] Varicella (varivax)(chicken pox) 2023-04-13 12:45:00 Completed [facility] MMR 2023-04-13 10:30:00 Completed [facility] Rubella 2023-04-13 10:30:00 Completed [facility] TDAP 2023-04-13 10:30:00 Completed [facility] Varicella (varivax)(chicken pox) 2023-04-13 10:30:00 Completed [facility] MMR 2023-04-13 00:00:00 Completed [facility] Rubella 2023-04-13 00:00:00 Completed [facility] TDAP 2023-04-13 00:00:00 Completed [facility] Varicella (varivax)(chicken pox) 2023-04-13 00:00:00 Completed [facility] MMR 2023-04-05 08:30:00 Completed [facility] Rubella 2023-04-05 08:30:00 Completed [facility] TDAP 2023-04-05 08:30:00 Completed [facility] Varicella (varivax)(chicken pox) 2023-04-05 08:30:00 Completed [facility] MMR 2023-04-02 15:15:00 Completed [facility] Rubella 2023-04-02 15:15:00 Completed [facility] TDAP 2023-04-02 15:15:00 Completed [facility] Varicella (varivax)(chicken pox) 2023-04-02 15:15:00 Completed [facility] MMR 2023-03-16 00:00:00 Completed [facility] Rubella 2023-03-16 00:00:00 Completed [facility] TDAP 2023-03-16 00:00:00 Completed [facility] Varicella (varivax)(chicken pox) 2023-03-16 00:00:00 Completed [facility] MMR 2023-03-16 00:00:00 Completed [facility] Rubella 2023-03-16 00:00:00 Completed [facility] TDAP 2023-03-16 00:00:00 Completed [facility] Varicella (varivax)(chicken pox) 2023-03-16 00:00:00 Completed [facility] MMR 2023-03-15 15:30:00 Completed [facility] Rubella 2023-03-15 15:30:00 Completed [facility] TDAP 2023-03-15 15:30:00 Completed [facility] Varicella (varivax)(chicken pox) 2023-03-15 15:30:00 Completed [facility] MMR 2023-03-15 13:30:00 Completed [facility] Rubella 2023-03-15 13:30:00 Completed [facility] TDAP 2023-03-15 13:30:00 Completed [facility] Varicella (varivax)(chicken pox) 2023-03-15 13:30:00 Completed [facility] MMR 2023-03-15 00:00:00 Completed [facility] Rubella 2023-03-15 00:00:00 Completed [facility] TDAP 2023-03-15 00:00:00 Completed [facility] Varicella (varivax)(chicken pox) 2023-03-15 00:00:00 Completed [facility] MMR 2023-02-09 13:40:00 Completed [facility] Rubella 2023-02-09 13:40:00 Completed [facility] Varicella (varivax)(chicken pox) 2023-02-09 13:40:00 Completed [facility] TDAP 2023-02-09 13:40:00 Completed [facility] MMR 2023-02-09 00:00:00 Completed [facility] Rubella 2023-02-09 00:00:00 Completed [facility] Varicella (varivax)(chicken pox) 2023-02-09 00:00:00 Completed [facility] TDAP 2023-02-09 00:00:00 Completed [facility] MMR 2022-09-26 00:00:00 Completed [facility] Rubella 2022-09-26 00:00:00 Completed [facility] Varicella (varivax)(chicken pox) 2022-09-26 00:00:00 Completed [facility] TDAP 2022-09-26 00:00:00 Completed [facility] TDAP 2022-05-25 00:00:00 Completed [facility] TDAP 2022-05-25 00:00:00 Completed [facility] TDAP 2022-05-25 00:00:00 Completed [facility] TDAP 2022-05-25 00:00:00 Completed [facility] TDAP 2022-05-25 00:00:00 Completed [facility] TDAP 2022-05-25 00:00:00 Completed [facility] TDAP 2022-05-25 00:00:00 Completed [facility] TDAP 2022-05-25 00:00:00 Completed [facility] TDAP 2022-05-25 00:00:00 Completed [facility] TDAP 2022-05-25 00:00:00 Completed [facility] TDAP 2022-05-25 00:00:00 Completed [facility] TDAP 2022-05-25 00:00:00 Completed [facility] TDAP 2022-05-25 00:00:00 Completed [facility] TDAP 2022-05-25 00:00:00 Completed [facility] TDAP 2022-05-25 00:00:00 Completed [facility] TDAP 2022-05-25 00:00:00 Completed [facility] TDAP 2022-05-25 00:00:00 Completed [facility] TDAP 2022-05-25 00:00:00 Completed [facility] TDAP 2022-05-25 00:00:00 Completed [facility] TDAP 2022-05-25 00:00:00 Completed [facility] TDAP 2022-05-25 00:00:00 Completed [facility] TDAP 2022-05-25 00:00:00 Completed [facility] TDAP 2022-05-25 00:00:00 Completed [facility] TDAP 2022-05-25 00:00:00 Completed [facility] TDAP 2022-05-25 00:00:00 Completed MMR 2022-01-19 00:00:00 Completed [facility] Rubella 2022-01-19 00:00:00 Completed [facility] Varicella (varivax)(chicken pox) 2022-01-19 00:00:00 Completed [facility] TDAP 2022-01-19 00:00:00 Completed [facility] TDAP 2020-03-02 00:00:00 Completed [facility] TDAP 2020-03-02 00:00:00 Completed [facility] TDAP 2020-03-02 00:00:00 Completed [facility] TDAP 2020-03-02 00:00:00 Completed [facility] TDAP 2020-03-02 00:00:00 Completed [facility] TDAP 2020-03-02 00:00:00 Completed [facility] TDAP 2020-03-02 00:00:00 Completed [facility] TDAP 2020-03-02 00:00:00 Completed [facility] TDAP 2020-03-02 00:00:00 Completed [facility] TDAP 2020-03-02 00:00:00 Completed [facility] TDAP 2020-03-02 00:00:00 Completed [facility] TDAP 2020-03-02 00:00:00 Completed [facility] TDAP 2020-03-02 00:00:00 Completed [facility] TDAP 2020-03-02 00:00:00 Completed [facility] TDAP 2020-03-02 00:00:00 Completed [facility] TDAP 2020-03-02 00:00:00 Completed [facility] TDAP 2020-03-02 00:00:00 Completed [facility] TDAP 2020-03-02 00:00:00 Completed [facility] TDAP 2020-03-02 00:00:00 Completed [facility] TDAP 2020-03-02 00:00:00 Completed [facility] TDAP 2020-03-02 00:00:00 Completed [facility] TDAP 2020-03-02 00:00:00 Completed [facility] TDAP 2020-03-02 00:00:00 Completed [facility] TDAP 2020-03-02 00:00:00 Completed [facility] TDAP 2020-03-02 00:00:00 Completed [facility] TDAP 2020-03-02 00:00:00 Completed [facility] TDAP 2020-03-02 00:00:00 Completed [facility] TDAP 2020-03-02 00:00:00 Completed [facility] TDAP 2020-03-02 00:00:00 Completed [facility] TDAP 2020-03-02 00:00:00 Completed [facility] TDAP 2020-03-02 00:00:00 Completed [facility] TDAP 2020-03-02 00:00:00 Completed [facility] TDAP 2020-03-02 00:00:00 Completed [facility] TDAP 2020-03-02 00:00:00 Completed [facility] TDAP 2020-03-02 00:00:00 Completed [facility] TDAP 2020-03-02 00:00:00 Completed [facility] TDAP 2020-03-02 00:00:00 Completed [facility] TDAP 2020-03-02 00:00:00 Completed [facility] TDAP 2020-03-02 00:00:00 Completed [facility] TDAP 2020-03-02 00:00:00 Completed [facility] TDAP 2020-03-02 00:00:00 Completed [facility] TDAP 2020-03-02 00:00:00 Completed [facility] TDAP 2020-03-02 00:00:00 Completed [facility] TDAP 2020-03-02 00:00:00 Completed [facility] TDAP 2020-03-02 00:00:00 Completed [facility] TDAP 2020-03-02 00:00:00 Completed [facility] TDAP 2020-03-02 00:00:00 Completed [facility] TDAP 2020-03-02 00:00:00 Completed [facility] TDAP 2020-03-02 00:00:00 Completed [facility] TDAP 2020-03-02 00:00:00 Completed [facility] TDAP 2020-03-02 00:00:00 Completed [facility] TDAP 2020-03-02 00:00:00 Completed [facility] TDAP 2020-03-02 00:00:00 Completed [facility] TDAP 2020-03-02 00:00:00 Completed [facility] TDAP 2018-07-26 00:00:00 Completed [facility] TDAP 2018-07-26 00:00:00 Completed [facility] TDAP 2018-07-26 00:00:00 Completed [facility] TDAP 2018-07-26 00:00:00 Completed [facility] TDAP 2018-07-26 00:00:00 Completed [facility] TDAP 2018-07-26 00:00:00 Completed [facility] TDAP 2018-07-26 00:00:00 Completed [facility] TDAP 2018-07-26 00:00:00 Completed [facility] TDAP 2018-07-26 00:00:00 Completed [facility] TDAP 2018-07-26 00:00:00 Completed [facility] TDAP 2018-07-26 00:00:00 Completed [facility] TDAP 2018-07-26 00:00:00 Completed [facility] TDAP 2018-07-26 00:00:00 Completed [facility] TDAP 2018-07-26 00:00:00 Completed [facility] TDAP 2018-07-26 00:00:00 Completed [facility] TDAP 2018-07-26 00:00:00 Completed [facility] TDAP 2018-07-26 00:00:00 Completed [facility] TDAP 2018-07-26 00:00:00 Completed [facility] TDAP 2018-07-26 00:00:00 Completed [facility] TDAP 2018-07-26 00:00:00 Completed [facility] TDAP 2018-07-26 00:00:00 Completed [facility] TDAP 2018-07-26 00:00:00 Completed [facility] TDAP 2018-07-26 00:00:00 Completed [facility] TDAP 2018-07-26 00:00:00 Completed [facility] TDAP 2018-07-26 00:00:00 Completed [facility] TDAP 2018-07-26 00:00:00 Completed [facility] TDAP 2018-07-26 00:00:00 Completed [facility] TDAP 2018-07-26 00:00:00 Completed [facility] TDAP 2018-07-26 00:00:00 Completed [facility] TDAP 2018-07-26 00:00:00 Completed [facility] TDAP 2018-07-26 00:00:00 Completed [facility] TDAP 2018-07-26 00:00:00 Completed [facility] TDAP 2018-07-26 00:00:00 Completed [facility] TDAP 2018-07-26 00:00:00 Completed [facility] TDAP 2018-07-26 00:00:00 Completed [facility] TDAP 2018-07-26 00:00:00 Completed [facility] TDAP 2018-07-26 00:00:00 Completed [facility] TDAP 2018-07-26 00:00:00 Completed [facility] TDAP 2018-07-26 00:00:00 Completed [facility] TDAP 2018-07-26 00:00:00 Completed [facility] TDAP 2018-07-26 00:00:00 Completed [facility] TDAP 2018-07-26 00:00:00 Completed [facility] TDAP 2018-07-26 00:00:00 Completed [facility] TDAP 2018-07-26 00:00:00 Completed [facility] TDAP 2018-07-26 00:00:00 Completed [facility] TDAP 2018-07-26 00:00:00 Completed [facility] TDAP 2018-07-26 00:00:00 Completed [facility] TDAP 2018-07-26 00:00:00 Completed [facility] TDAP 2018-07-26 00:00:00 Completed [facility] TDAP 2018-07-26 00:00:00 Completed [facility] TDAP 2018-07-26 00:00:00 Completed [facility] TDAP 2018-07-26 00:00:00 Completed [facility] TDAP 2018-07-26 00:00:00 Completed [facility] TDAP 2018-07-26 00:00:00 Completed [facility] TDAP 2018-07-26 00:00:00 Completed [facility] Rubella 2011-11-28 00:00:00 Completed [facility] Rubella 2011-11-28 00:00:00 Completed [facility] Rubella 2011-11-28 00:00:00 Completed [facility] Rubella 2011-11-28 00:00:00 Completed [facility] Rubella 2011-11-28 00:00:00 Completed [facility] Rubella 2011-11-28 00:00:00 Completed [facility] Rubella 2011-11-28 00:00:00 Completed [facility] Rubella 2011-11-28 00:00:00 Completed [facility] Rubella 2011-11-28 00:00:00 Completed [facility] Rubella 2011-11-28 00:00:00 Completed [facility] Rubella 2011-11-28 00:00:00 Completed [facility] Rubella 2011-11-28 00:00:00 Completed [facility] Rubella 2011-11-28 00:00:00 Completed [facility] Rubella 2011-11-28 00:00:00 Completed [facility] Rubella 2011-11-28 00:00:00 Completed [facility] Rubella 2011-11-28 00:00:00 Completed [facility] Rubella 2011-11-28 00:00:00 Completed [facility] Rubella 2011-11-28 00:00:00 Completed [facility] Rubella 2011-11-28 00:00:00 Completed [facility] Rubella 2011-11-28 00:00:00 Completed [facility] Rubella 2011-11-28 00:00:00 Completed [facility] Rubella 2011-11-28 00:00:00 Completed [facility] Rubella 2011-11-28 00:00:00 Completed [facility] Rubella 2011-11-28 00:00:00 Completed [facility] Rubella 2011-11-28 00:00:00 Completed [facility] Rubella 2011-11-28 00:00:00 Completed [facility] Rubella 2011-11-28 00:00:00 Completed [facility] Rubella 2011-11-28 00:00:00 Completed [facility] Rubella 2011-11-28 00:00:00 Completed [facility] Rubella 2011-11-28 00:00:00 Completed [facility] Rubella 2011-11-28 00:00:00 Completed [facility] Rubella 2011-11-28 00:00:00 Completed [facility] Rubella 2011-11-28 00:00:00 Completed [facility] Rubella 2011-11-28 00:00:00 Completed [facility] Rubella 2011-11-28 00:00:00 Completed [facility] Rubella 2011-11-28 00:00:00 Completed [facility] Rubella 2011-11-28 00:00:00 Completed [facility] Rubella 2011-11-28 00:00:00 Completed [facility] Rubella 2011-11-28 00:00:00 Completed [facility] Rubella 2011-11-28 00:00:00 Completed [facility] Rubella 2011-11-28 00:00:00 Completed [facility] Rubella 2011-11-28 00:00:00 Completed [facility] Rubella 2011-11-28 00:00:00 Completed [facility] Rubella 2011-11-28 00:00:00 Completed [facility] Rubella 2011-11-28 00:00:00 Completed [facility] Rubella 2011-11-28 00:00:00 Completed [facility] Rubella 2011-11-28 00:00:00 Completed [facility] Rubella 2011-11-28 00:00:00 Completed [facility] Rubella 2011-11-28 00:00:00 Completed [facility] Rubella 2011-11-28 00:00:00 Completed [facility] Rubella 2011-11-28 00:00:00 Completed [facility] Rubella 2011-11-28 00:00:00 Completed [facility] Rubella 2011-11-28 00:00:00 Completed [facility] Rubella 2011-11-28 00:00:00 Completed [facility] MMR 2011-10-11 00:00:00 Completed [facility] MMR 2011-10-11 00:00:00 Completed [facility] MMR 2011-10-11 00:00:00 Completed [facility] MMR 2011-10-11 00:00:00 Completed [facility] MMR 2011-10-11 00:00:00 Completed [facility] MMR 2011-10-11 00:00:00 Completed [facility] MMR 2011-10-11 00:00:00 Completed [facility] MMR 2011-10-11 00:00:00 Completed [facility] MMR 2011-10-11 00:00:00 Completed [facility] MMR 2011-10-11 00:00:00 Completed [facility] MMR 2011-10-11 00:00:00 Completed [facility] MMR 2011-10-11 00:00:00 Completed [facility] MMR 2011-10-11 00:00:00 Completed [facility] MMR 2011-10-11 00:00:00 Completed [facility] MMR 2011-10-11 00:00:00 Completed [facility] MMR 2011-10-11 00:00:00 Completed [facility] MMR 2011-10-11 00:00:00 Completed [facility] MMR 2011-10-11 00:00:00 Completed [facility] MMR 2011-10-11 00:00:00 Completed [facility] MMR 2011-10-11 00:00:00 Completed [facility] MMR 2011-10-11 00:00:00 Completed [facility] MMR 2011-10-11 00:00:00 Completed [facility] MMR 2011-10-11 00:00:00 Completed [facility] MMR 2011-10-11 00:00:00 Completed [facility] MMR 2011-10-11 00:00:00 Completed [facility] MMR 2011-10-11 00:00:00 Completed [facility] MMR 2011-10-11 00:00:00 Completed [facility] MMR 2011-10-11 00:00:00 Completed [facility] MMR 2011-10-11 00:00:00 Completed [facility] MMR 2011-10-11 00:00:00 Completed [facility] MMR 2011-10-11 00:00:00 Completed [facility] MMR 2011-10-11 00:00:00 Completed [facility] MMR 2011-10-11 00:00:00 Completed [facility] MMR 2011-10-11 00:00:00 Completed [facility] MMR 2011-10-11 00:00:00 Completed [facility] MMR 2011-10-11 00:00:00 Completed [facility] MMR 2011-10-11 00:00:00 Completed [facility] MMR 2011-10-11 00:00:00 Completed [facility] MMR 2011-10-11 00:00:00 Completed [facility] MMR 2011-10-11 00:00:00 Completed [facility] MMR 2011-10-11 00:00:00 Completed [facility] MMR 2011-10-11 00:00:00 Completed [facility] MMR 2011-10-11 00:00:00 Completed [facility] MMR 2011-10-11 00:00:00 Completed [facility] MMR 2011-10-11 00:00:00 Completed [facility] MMR 2011-10-11 00:00:00 Completed [facility] MMR 2011-10-11 00:00:00 Completed [facility] MMR 2011-10-11 00:00:00 Completed [facility] MMR 2011-10-11 00:00:00 Completed [facility] MMR 2011-10-11 00:00:00 Completed [facility] MMR 2011-10-11 00:00:00 Completed [facility] MMR 2011-10-11 00:00:00 Completed [facility] MMR 2011-10-11 00:00:00 Completed [facility] MMR 2011-10-11 00:00:00 Completed [facility] TDAP 2011-09-20 00:00:00 Completed [facility] TDAP 2011-09-20 00:00:00 Completed [facility] TDAP 2011-09-20 00:00:00 Completed [facility] TDAP 2011-09-20 00:00:00 Completed [facility] TDAP 2011-09-20 00:00:00 Completed [facility] TDAP 2011-09-20 00:00:00 Completed [facility] TDAP 2011-09-20 00:00:00 Completed [facility] TDAP 2011-09-20 00:00:00 Completed [facility] TDAP 2011-09-20 00:00:00 Completed [facility] TDAP 2011-09-20 00:00:00 Completed [facility] TDAP 2011-09-20 00:00:00 Completed [facility] TDAP 2011-09-20 00:00:00 Completed [facility] TDAP 2011-09-20 00:00:00 Completed [facility] TDAP 2011-09-20 00:00:00 Completed [facility] TDAP 2011-09-20 00:00:00 Completed [facility] TDAP 2011-09-20 00:00:00 Completed [facility] TDAP 2011-09-20 00:00:00 Completed [facility] TDAP 2011-09-20 00:00:00 Completed [facility] TDAP 2011-09-20 00:00:00 Completed [facility] TDAP 2011-09-20 00:00:00 Completed [facility] TDAP 2011-09-20 00:00:00 Completed [facility] TDAP 2011-09-20 00:00:00 Completed [facility] TDAP 2011-09-20 00:00:00 Completed [facility] TDAP 2011-09-20 00:00:00 Completed [facility] TDAP 2011-09-20 00:00:00 Completed [facility] TDAP 2011-09-20 00:00:00 Completed [facility] TDAP 2011-09-20 00:00:00 Completed [facility] TDAP 2011-09-20 00:00:00 Completed [facility] TDAP 2011-09-20 00:00:00 Completed [facility] TDAP 2011-09-20 00:00:00 Completed [facility] TDAP 2011-09-20 00:00:00 Completed [facility] TDAP 2011-09-20 00:00:00 Completed [facility] TDAP 2011-09-20 00:00:00 Completed [facility] TDAP 2011-09-20 00:00:00 Completed [facility] TDAP 2011-09-20 00:00:00 Completed [facility] TDAP 2011-09-20 00:00:00 Completed [facility] TDAP 2011-09-20 00:00:00 Completed [facility] TDAP 2011-09-20 00:00:00 Completed [facility] TDAP 2011-09-20 00:00:00 Completed [facility] TDAP 2011-09-20 00:00:00 Completed [facility] TDAP 2011-09-20 00:00:00 Completed [facility] TDAP 2011-09-20 00:00:00 Completed [facility] TDAP 2011-09-20 00:00:00 Completed [facility] TDAP 2011-09-20 00:00:00 Completed [facility] TDAP 2011-09-20 00:00:00 Completed [facility] TDAP 2011-09-20 00:00:00 Completed [facility] TDAP 2011-09-20 00:00:00 Completed [facility] TDAP 2011-09-20 00:00:00 Completed [facility] TDAP 2011-09-20 00:00:00 Completed [facility] TDAP 2011-09-20 00:00:00 Completed [facility] TDAP 2011-09-20 00:00:00 Completed [facility] TDAP 2011-09-20 00:00:00 Completed [facility] TDAP 2011-09-20 00:00:00 Completed [facility] TDAP 2011-09-20 00:00:00 Completed [facility] Varicella (varivax)(chicken pox) 2011-03-21 00:00:00 Completed [facility] Varicella (varivax)(chicken pox) 2011-03-21 00:00:00 Completed [facility] Varicella (varivax)(chicken pox) 2011-03-21 00:00:00 Completed [facility] Varicella (varivax)(chicken pox) 2011-03-21 00:00:00 Completed [facility] Varicella (varivax)(chicken pox) 2011-03-21 00:00:00 Completed [facility] Varicella (varivax)(chicken pox) 2011-03-21 00:00:00 Completed [facility] Varicella (varivax)(chicken pox) 2011-03-21 00:00:00 Completed [facility] Varicella (varivax)(chicken pox) 2011-03-21 00:00:00 Completed [facility] Varicella (varivax)(chicken pox) 2011-03-21 00:00:00 Completed [facility] Varicella (varivax)(chicken pox) 2011-03-21 00:00:00 Completed [facility] Varicella (varivax)(chicken pox) 2011-03-21 00:00:00 Completed [facility] Varicella (varivax)(chicken pox) 2011-03-21 00:00:00 Completed [facility] Varicella (varivax)(chicken pox) 2011-03-21 00:00:00 Completed [facility] Varicella (varivax)(chicken pox) 2011-03-21 00:00:00 Completed [facility] Varicella (varivax)(chicken pox) 2011-03-21 00:00:00 Completed [facility] Varicella (varivax)(chicken pox) 2011-03-21 00:00:00 Completed [facility] Varicella (varivax)(chicken pox) 2011-03-21 00:00:00 Completed [facility] Varicella (varivax)(chicken pox) 2011-03-21 00:00:00 Completed [facility] Varicella (varivax)(chicken pox) 2011-03-21 00:00:00 Completed [facility] Varicella (varivax)(chicken pox) 2011-03-21 00:00:00 Completed [facility] Varicella (varivax)(chicken pox) 2011-03-21 00:00:00 Completed [facility] Varicella (varivax)(chicken pox) 2011-03-21 00:00:00 Completed [facility] Varicella (varivax)(chicken pox) 2011-03-21 00:00:00 Completed [facility] Varicella (varivax)(chicken pox) 2011-03-21 00:00:00 Completed [facility] Varicella (varivax)(chicken pox) 2011-03-21 00:00:00 Completed [facility] Varicella (varivax)(chicken pox) 2011-03-21 00:00:00 Completed [facility] Varicella (varivax)(chicken pox) 2011-03-21 00:00:00 Completed [facility] Varicella (varivax)(chicken pox) 2011-03-21 00:00:00 Completed [facility] Varicella (varivax)(chicken pox) 2011-03-21 00:00:00 Completed [facility] Varicella (varivax)(chicken pox) 2011-03-21 00:00:00 Completed [facility] Varicella (varivax)(chicken pox) 2011-03-21 00:00:00 Completed [facility] Varicella (varivax)(chicken pox) 2011-03-21 00:00:00 Completed [facility] Varicella (varivax)(chicken pox) 2011-03-21 00:00:00 Completed [facility] Varicella (varivax)(chicken pox) 2011-03-21 00:00:00 Completed [facility] Varicella (varivax)(chicken pox) 2011-03-21 00:00:00 Completed [facility] Varicella (varivax)(chicken pox) 2011-03-21 00:00:00 Completed [facility] Varicella (varivax)(chicken pox) 2011-03-21 00:00:00 Completed [facility] Varicella (varivax)(chicken pox) 2011-03-21 00:00:00 Completed [facility] Varicella (varivax)(chicken pox) 2011-03-21 00:00:00 Completed [facility] Varicella (varivax)(chicken pox) 2011-03-21 00:00:00 Completed [facility] Varicella (varivax)(chicken pox) 2011-03-21 00:00:00 Completed [facility] Varicella (varivax)(chicken pox) 2011-03-21 00:00:00 Completed [facility] Varicella (varivax)(chicken pox) 2011-03-21 00:00:00 Completed [facility] Varicella (varivax)(chicken pox) 2011-03-21 00:00:00 Completed [facility] Varicella (varivax)(chicken pox) 2011-03-21 00:00:00 Completed [facility] Varicella (varivax)(chicken pox) 2011-03-21 00:00:00 Completed [facility] Varicella (varivax)(chicken pox) 2011-03-21 00:00:00 Completed [facility] Varicella (varivax)(chicken pox) 2011-03-21 00:00:00 Completed [facility] Varicella (varivax)(chicken pox) 2011-03-21 00:00:00 Completed [facility] Varicella (varivax)(chicken pox) 2011-03-21 00:00:00 Completed [facility] Varicella (varivax)(chicken pox) 2011-03-21 00:00:00 Completed [facility] Varicella (varivax)(chicken pox) 2011-03-21 00:00:00 Completed [facility] Varicella (varivax)(chicken pox) 2011-03-21 00:00:00 Completed [facility] Varicella (varivax)(chicken pox) 2011-03-21 00:00:00 Completed [facility] Vital Signs Vital Name Observation Time Observation Value Comments S ource Systolic blood pressure 2024-11-11 16:08:00 109 mm[Hg] [facility] Diastolic blood pressure 2024-11-11 16:08:00 74 mm[Hg] [facility] Heart rate 2024-11-11 16:08:00 77 /min [facility] Body temperature 2024-11-11 16:08:00 36.72 Leydi [facility] Respiratory rate 2024-11-11 16:08:00 20 /min [facility] Body height 2024-11-11 16:08:00 162.6 cm [facility] Body weight 2024-11-11 16:08:00 71.532 kg [facility] BMI 2024-11-11 16:08:00 27.07 kg/m2 [facility] Systolic blood pressure 2024-02-21 14:05:00 113 mm[Hg] [facility] Diastolic blood pressure 2024-02-21 14:05:00 70 mm[Hg] [facility] Heart rate 2024-02-21 14:05:00 70 /min [facility] Body temperature 2024-02-21 14:05:00 35.83 Leydi [facility] Body height 2024-02-21 14:05:00 162.6 cm [facility] Body weight 2024-02-21 14:05:00 76.204 kg [facility] BMI 2024-02-21 14:05:00 28.84 kg/m2 [facility] Systolic blood pressure 2024-01-11 20:29:00 106 mm[Hg] [facility] Diastolic blood pressure 2024-01-11 20:29:00 73 mm[Hg] [facility] Heart rate 2024-01-11 20:29:00 75 /min [facility] Body temperature 2024-01-11 20:29:00 36.94 Leydi [facility] Body height 2024-01-11 20:29:00 162.6 cm [facility] Body weight 2024-01-11 20:29:00 74.98 kg [facility] BMI 2024-01-11 20:29:00 28.37 kg/m2 [facility] Oxygen saturation in Arterial blood by Pulse oximetry 2024-01-11 20:29:00 97 /min [facility] Body weight 2024-01-08 19:42:00 77.565 kg [facility] BMI 2024-01-08 19:42:00 29.35 kg/m2 [facility] Body height 2024-01-08 16:04:00 162.6 cm [facility] Body weight 2023-11-06 18:50:00 77.565 kg [facility] BMI 2023-11-06 18:50:00 29.35 kg/m2 [facility] Systolic blood pressure 2023-10-28 16:34:00 119 mm[Hg] [facility] Diastolic blood pressure 2023-10-28 16:34:00 80 mm[Hg] [facility] Heart rate 2023-10-28 16:34:00 91 /min [facility] Body temperature 2023-10-28 16:34:00 36.5 Leydi [facility] Respiratory rate 2023-10-28 16:34:00 18 /min [facility] Oxygen saturation in Arterial blood by Pulse oximetry 2023-10-28 16:34:00 96 /min [facility] Body height 2023-10-28 05:18:00 162.6 cm [facility] Body weight 2023-10-28 05:18:00 77.565 kg [facility] BMI 2023-10-28 05:18:00 29.35 kg/m2 [facility] Systolic blood pressure 2023-10-19 16:49:00 115 mm[Hg] [facility] Diastolic blood pressure 2023-10-19 16:49:00 80 mm[Hg] [facility] Heart rate 2023-10-19 16:49:00 64 /min [facility] Body temperature 2023-10-19 16:49:00 36.44 Leydi [facility] Body height 2023-10-19 16:49:00 162.6 cm [facility] Body weight 2023-10-19 16:49:00 75.479 kg [facility] BMI 2023-10-19 16:49:00 28.56 kg/m2 [facility] Oxygen saturation in Arterial blood by Pulse oximetry 2023-10-19 16:49:00 99 /min [facility] Systolic blood pressure 2023-10-05 20:00:00 109 mm[Hg] [facility] Diastolic blood pressure 2023-10-05 20:00:00 76 mm[Hg] [facility] Heart rate 2023-10-05 20:00:00 81 /min [facility] Body temperature 2023-10-05 20:00:00 36.28 Leydi [facility] Respiratory rate 2023-10-05 20:00:00 17 /min [facility] Body height 2023-10-05 20:00:00 162.6 cm [facility] Body weight 2023-10-05 20:00:00 76.839 kg [facility] BMI 2023-10-05 20:00:00 29.08 kg/m2 [facility] Systolic blood pressure 2023-09-14 21:53:00 108 mm[Hg] [facility] Diastolic blood pressure 2023-09-14 21:53:00 76 mm[Hg] [facility] Heart rate 2023-09-14 21:53:00 73 /min [facility] Body temperature 2023-09-14 21:53:00 36.72 Leydi [facility] Respiratory rate 2023-09-14 21:53:00 19 /min [facility] Body height 2023-09-14 21:53:00 162.6 cm [facility] Body weight 2023-09-14 21:53:00 82.963 kg [facility] BMI 2023-09-14 21:53:00 31.39 kg/m2 [facility] Oxygen saturation in Arterial blood by Pulse oximetry 2023-09-14 21:53:00 100 /min [facility] Systolic blood pressure 2023-09-13 12:53:00 113 mm[Hg] [facility] Diastolic blood pressure 2023-09-13 12:53:00 71 mm[Hg] [facility] Heart rate 2023-09-13 12:53:00 92 [facility] Body temperature 2023-09-13 12:53:00 36.5 Leydi [facility] Respiratory rate 2023-09-13 12:53:00 18 /min [facility] Oxygen saturation in Arterial blood by Pulse oximetry 2023-09-13 12:53:00 98 /min [facility] Body height 2023-09-12 03:30:00 162.6 cm [facility] Body weight 2023-09-12 03:30:00 87.317 kg [facility] BMI 2023-09-12 03:30:00 33.04 kg/m2 [facility] Systolic blood pressure 2023-09-04 20:55:00 100 mm[Hg] [facility] Diastolic blood pressure 2023-09-04 20:55:00 69 mm[Hg] [facility] Heart rate 2023-09-04 20:55:00 98 /min [facility] Body temperature 2023-09-04 20:55:00 35.83 Leydi [facility] Body height 2023-09-04 20:55:00 162.6 cm [facility] Body weight 2023-09-04 20:55:00 86.501 kg [facility] BMI 2023-09-04 20:55:00 32.73 kg/m2 [facility] Systolic blood pressure 2023-08-28 16:02:00 110 mm[Hg] [facility] Diastolic blood pressure 2023-08-28 16:02:00 64 mm[Hg] [facility] Heart rate 2023-08-28 16:02:00 95 /min [facility] Body temperature 2023-08-28 16:02:00 36.11 Leydi [facility] Respiratory rate 2023-08-28 16:02:00 17 /min [facility] Body height 2023-08-28 16:02:00 162.6 cm [facility] Body weight 2023-08-28 16:02:00 86.818 kg [facility] BMI 2023-08-28 16:02:00 32.85 kg/m2 [facility] Systolic blood pressure 2023-08-14 16:07:00 103 mm[Hg] [facility] Diastolic blood pressure 2023-08-14 16:07:00 62 mm[Hg] [facility] Heart rate 2023-08-14 16:07:00 82 /min [facility] Body temperature 2023-08-14 16:07:00 36.17 Leydi [facility] Respiratory rate 2023-08-14 16:07:00 21 /min [facility] Body height 2023-08-14 16:07:00 162.6 cm [facility] 2023-08-14 16:07:00 84.868 kg [facility] BMI 2023-08-14 16:07:00 32.12 kg/m2 [facility] Systolic blood pressure 2023-07-31 19:00:00 100 mm[Hg] [facility] Diastolic blood pressure 2023-07-31 19:00:00 62 mm[Hg] [facility] Heart rate 2023-07-31 19:00:00 81 /min [facility] Respiratory rate 2023-07-31 19:00:00 16 /min [facility] Oxygen saturation in Arterial blood by Pulse oximetry 2023-07-31 19:00:00 100 /min [facility] Body temperature 2023-07-31 18:00:00 36.61 Leydi [facility] Body height 2023-07-31 17:45:00 162.6 cm [facility] Body weight 2023-07-31 17:45:00 86.274 kg [facility] BMI 2023-07-31 17:45:00 32.65 kg/m2 [facility] Systolic blood pressure 2023-07-31 16:38:00 108 mm[Hg] [facility] Diastolic blood pressure 2023-07-31 16:38:00 70 mm[Hg] [facility] Heart rate 2023-07-31 16:38:00 89 /min [facility] Body temperature 2023-07-31 16:38:00 35.28 Leydi [facility] Respiratory rate 2023-07-31 16:38:00 16 /min [facility] Body height 2023-07-31 16:38:00 162.6 cm [facility] Body weight 2023-07-31 16:38:00 84.596 kg [facility] BMI 2023-07-31 16:38:00 32.01 kg/m2 [facility] Systolic blood pressure 2023-07-17 15:58:00 98 mm[Hg] [facility] Diastolic blood pressure 2023-07-17 15:58:00 68 mm[Hg] [facility] Heart rate 2023-07-17 15:58:00 95 /min [facility] Body temperature 2023-07-17 15:58:00 35.89 Leydi [facility] Respiratory rate 2023-07-17 15:58:00 16 /min [facility] Body height 2023-07-17 15:58:00 162.6 cm [facility] Body weight 2023-07-17 15:58:00 85.866 kg [facility] BMI 2023-07-17 15:58:00 32.49 kg/m2 [facility] Body height 2023-07-09 19:42:00 162.6 cm [facility] Systolic blood pressure 2023-06-12 16:45:00 114 mm[Hg] [facility] Diastolic blood pressure 2023-06-12 16:45:00 62 mm[Hg] [facility] Heart rate 2023-06-12 16:45:00 84 /min [facility] Body temperature 2023-06-12 16:45:00 36.5 Leydi [facility] Respiratory rate 2023-06-12 16:45:00 20 /min [facility] Body height 2023-06-12 16:45:00 162.6 cm [facility] Body weight 2023-06-12 16:45:00 82.464 kg [facility] BMI 2023-06-12 16:45:00 31.21 kg/m2 [facility] Systolic blood pressure 2023-05-15 16:37:00 100 mm[Hg] [facility] Diastolic blood pressure 2023-05-15 16:37:00 63 mm[Hg] [facility] Heart rate 2023-05-15 16:37:00 88 /min [facility] Body temperature 2023-05-15 16:37:00 35.89 Leydi [facility] Body height 2023-05-15 16:37:00 162.6 cm [facility] Body weight 2023-05-15 16:37:00 82.736 kg [facility] BMI 2023-05-15 16:37:00 31.31 kg/m2 [facility] Systolic blood pressure 2023-04-13 16:51:00 98 mm[Hg] [facility] Diastolic blood pressure 2023-04-13 16:51:00 61 mm[Hg] [facility] Heart rate 2023-04-13 16:51:00 89 /[facility] Body temperature 2023-04-13 16:51:00 35.94 Leydi [facility] Body height 2023-04-13 16:51:00 162.6 cm [facility] Body weight 2023-04-13 16:51:00 81.92 kg [facility] BMI 2023-04-13 16:51:00 31.00 kg/m2 [facility] Systolic blood pressure 2023-03-15 19:57:00 115 mm[Hg] [facility] Diastolic blood pressure 2023-03-15 19:57:00 72 mm[Hg] [facility] Heart rate 2023-03-15 19:57:00 96 /min [facility] Body temperature 2023-03-15 19:57:00 36.33 Leydi [facility] Respiratory rate 2023-03-15 19:57:00 19 /min [facility] Body height 2023-03-15 19:57:00 162.6 cm [facility] Body weight 2023-03-15 19:57:00 80.06 kg [facility] BMI 2023-03-15 19:57:00 30.30 kg/m2 [facility] Oxygen saturation in Arterial blood by Pulse oximetry 2023-03-15 19:57:00 100 /min [facility] Systolic blood pressure 2023-02-09 18:51:00 107 mm[Hg] [facility] Diastolic blood pressure 2023-02-09 18:51:00 75 mm[Hg] [facility] Heart rate 2023-02-09 18:51:00 84 /min [facility] Body temperature 2023-02-09 18:51:00 36.89 Leydi [facility] Respiratory rate 2023-02-09 18:51:00 18 /min [facility] Body height 2023-02-09 18:51:00 162.6 cm [facility] Body weight 2023-02-09 18:51:00 77.338 kg [facility] BMI 2023-02-09 18:51:00 29.27 kg/m2 [facility] Oxygen saturation in Arterial blood by Pulse oximetry 2023-02-09 18:51:00 99 /min [facility] Systolic blood pressure 2022-10-27 18:40:00 112 mm[Hg] [facility] Diastolic blood pressure 2022-10-27 18:40:00 73 mm[Hg] [facility] Heart rate 2022-10-27 18:40:00 93 /min [facility] Respiratory rate 2022-10-27 18:40:00 18 /min [facility] Body weight 2022-10-27 18:40:00 77.111 kg [facility] BMI 2022-10-27 18:40:00 29.18 kg/m2 [facility] Oxygen saturation in Arterial blood by Pulse oximetry 2022-10-27 18:40:00 99 /min [facility] Systolic blood pressure 2022-09-20 14:30:00 116 mm[Hg] [facility] Diastolic blood pressure 2022-09-20 14:30:00 75 mm[Hg] [facility] Heart rate 2022-09-20 14:30:00 94 /min [facility] Body temperature 2022-09-20 14:30:00 35.89 Leydi [facility] Respiratory rate 2022-09-20 14:30:00 18 /min [facility] Body height 2022-09-20 14:30:00 162.6 cm [facility] Body weight 2022-09-20 14:30:00 80.332 kg [facility] BMI 2022-09-20 14:30:00 30.40 kg/m2 [facility] Systolic blood pressure 2022-08-30 15:07:00 110 mm[Hg] [facility] Diastolic blood pressure 2022-08-30 15:07:00 79 mm[Hg] [facility] Heart rate 2022-08-30 15:07:00 79 /min [facility] Body temperature 2022-08-30 15:07:00 35.39 Leydi [facility] Respiratory rate 2022-08-30 15:07:00 18 /min [facility] Body height 2022-08-30 15:07:00 162.6 cm [facility] Body weight 2022-08-30 15:07:00 80.786 kg [facility] BMI 2022-08-30 15:07:00 30.57 kg/m2 [facility] Systolic blood pressure 2022-08-15 17:26:00 124 mm[Hg] [facility] Diastolic blood pressure 2022-08-15 17:26:00 86 mm[Hg] [facility] Heart rate 2022-08-15 17:26:00 68 /min [facility] Body temperature 2022-08-15 17:26:00 36.5 Leydi [facility] Respiratory rate 2022-08-15 17:26:00 18 /min [facility] Body weight 2022-08-15 17:26:00 77.111 kg [facility] BMI 2022-08-15 17:26:00 29.18 kg/m2 [facility] Oxygen saturation in Arterial blood by Pulse oximetry 2022-08-15 17:26:00 100 /min [facility] Systolic blood pressure 2022-08-11 13:55:00 114 mm[Hg] [facility] Diastolic blood pressure 2022-08-11 13:55:00 68 mm[Hg] [facility] Heart rate 2022-08-11 13:55:00 86 /min [facility] Body temperature 2022-08-11 13:55:00 36.5 Leydi [facility] Respiratory rate 2022-08-11 13:55:00 18 /min [facility] Oxygen saturation in Arterial blood by Pulse oximetry 2022-08-11 13:55:00 100 /min [facility] Body height 2022-08-09 16:30:00 162.6 cm [facility] Body weight 2022-08-09 16:30:00 88.089 kg [facility] BMI 2022-08-09 16:30:00 33.33 kg/m2 [facility] Systolic blood pressure 2022-08-04 14:33:00 105 mm[Hg] [facility] Diastolic blood pressure 2022-08-04 14:33:00 68 mm[Hg] [facility] Heart rate 2022-08-04 14:33:00 89 /min [facility] Body temperature 2022-08-04 14:33:00 35.61 Leydi [facility] Respiratory rate 2022-08-04 14:33:00 18 /min [facility] Body height 2022-08-04 14:33:00 162.6 cm [facility] Body weight 2022-08-04 14:33:00 88.089 kg [facility] BMI 2022-08-04 14:33:00 33.33 kg/m2 [facility] Systolic blood pressure 2022-07-27 20:55:00 109 mm[Hg] [facility] Diastolic blood pressure 2022-07-27 20:55:00 70 mm[Hg] [facility] Heart rate 2022-07-27 20:55:00 93 /min [facility] Body temperature 2022-07-27 20:55:00 36.22 Leydi [facility] Respiratory rate 2022-07-27 20:55:00 18 /min [facility] Body height 2022-07-27 20:55:00 162.6 cm [facility] Body weight 2022-07-27 20:55:00 87.204 kg [facility] BMI 2022-07-27 20:55:00 33.00 kg/m2 [facility] Systolic blood pressure 2022-07-21 18:22:00 114 mm[Hg] [facility] Diastolic blood pressure 2022-07-21 18:22:00 64 mm[Hg] [facility] Heart rate 2022-07-21 18:22:00 93 /min [facility] Body temperature 2022-07-21 18:22:00 36.56 Leydi [facility] Respiratory rate 2022-07-21 18:22:00 18 /min [facility] Body height 2022-07-21 18:22:00 162.6 cm [facility] Body weight 2022-07-21 18:22:00 88.587 kg [facility] BMI 2022-07-21 18:22:00 33.52 kg/m2 [facility] Oxygen saturation in Arterial blood by Pulse oximetry 2022-07-21 18:22:00 98 /min [facility] Systolic blood pressure 2022-07-21 14:09:00 101 mm[Hg] [facility] Diastolic blood pressure 2022-07-21 14:09:00 58 mm[Hg] [facility] Heart rate 2022-07-21 14:09:00 81 /min [facility] Body temperature 2022-07-21 14:09:00 36.22 Leydi [facility] Respiratory rate 2022-07-21 14:09:00 18 /min [facility] Body height 2022-07-21 14:09:00 162.6 cm [facility] Body weight 2022-07-21 14:09:00 87.816 kg [facility] BMI 2022-07-21 14:09:00 33.23 kg/m2 [facility] Systolic blood pressure 2022-07-06 16:00:00 103 mm[Hg] [facility] Diastolic blood pressure 2022-07-06 16:00:00 70 mm[Hg] [facility] Heart rate 2022-07-06 16:00:00 85 /min [facility] Body temperature 2022-07-06 16:00:00 36.33 Leydi [facility] Respiratory rate 2022-07-06 16:00:00 18 /min [facility] Body height 2022-07-06 16:00:00 162.6 cm [facility] Body weight 2022-07-06 16:00:00 84.913 kg [facility] BMI 2022-07-06 16:00:00 32.13 kg/m2 [facility] Heart rate 2022-06-26 17:45:00 78 /min [facility] Oxygen saturation in Arterial blood by Pulse oximetry 2022-06-26 17:45:00 99 /min [facility] Systolic blood pressure 2022-06-26 16:45:00 111 mm[Hg] [facility] Diastolic blood pressure 2022-06-26 16:45:00 62 mm[Hg] [facility] Body temperature 2022-06-26 16:45:00 37 Leydi [facility] Respiratory rate 2022-06-26 16:45:00 18 /min [facility] Body weight 2022-06-26 16:22:00 83.915 kg [facility] BMI 2022-06-26 16:22:00 31.76 kg/m2 [facility] Systolic blood pressure 2022-06-22 17:16:00 114 mm[Hg] [facility] Diastolic blood pressure 2022-06-22 17:16:00 60 mm[Hg] [facility] Heart rate 2022-06-22 17:16:00 80 /min [facility] Body temperature 2022-06-22 17:16:00 36.5 Leydi [facility] Respiratory rate 2022-06-22 17:16:00 18 /min [facility] Body height 2022-06-22 17:16:00 162.6 cm [facility] Body weight 2022-06-22 17:16:00 84.142 kg [facility] BMI 2022-06-22 17:16:00 31.84 kg/m2 [facility] Systolic blood pressure 2022-06-08 17:03:00 106 mm[Hg] [facility] Diastolic blood pressure 2022-06-08 17:03:00 63 mm[Hg] [facility] Heart rate 2022-06-08 17:03:00 78 /min [facility] Body temperature 2022-06-08 17:03:00 36.56 Leydi [facility] Respiratory rate 2022-06-08 17:03:00 18 /min [facility] Body height 2022-06-08 17:03:00 162.6 cm [facility] Body weight 2022-06-08 17:03:00 83.553 kg [facility] BMI 2022-06-08 17:03:00 31.62 kg/m2 [facility] Systolic blood pressure 2022-05-25 21:57:00 111 mm[Hg] [facility] Diastolic blood pressure 2022-05-25 21:57:00 70 mm[Hg] [facility] Heart rate 2022-05-25 21:57:00 85 /min [facility] Body temperature 2022-05-25 21:57:00 36.33 Leydi [facility] Respiratory rate 2022-05-25 21:57:00 16 /min [facility] Body height 2022-05-25 21:57:00 162.6 cm [facility] Body weight 2022-05-25 21:57:00 81.647 kg [facility] BMI 2022-05-25 21:57:00 30.90 kg/m2 Univ [facility] Systolic blood pressure 2022-05-11 14:34:00 107 mm[Hg] [facility] Diastolic blood pressure 2022-05-11 14:34:00 67 mm[Hg] [facility] Heart rate 2022-05-11 14:34:00 87 /min Un[facility] Body temperature 2022-05-11 14:34:00 36.22 Leydi [facility] Respiratory rate 2022-05-11 14:34:00 18 /min [facility] Body height 2022-05-11 14:34:00 162.6 cm [facility] 2022-05-11 14:34:00 81.194 kg Univ [facility] BMI 2022-05-11 14:34:00 30.73 kg/m2 Univ [facility] Systolic blood pressure 2022-04-24 16:09:00 118 mm[Hg] [facility] Diastolic blood pressure 2022-04-24 16:09:00 67 mm[Hg] [facility] Heart rate 2022-04-24 16:09:00 88 /min Un[facility] Body temperature 2022-04-24 16:09:00 36.72 Leydi [facility] Respiratory rate 2022-04-24 16:09:00 20 /min [facility] Body height 2022-04-24 16:09:00 162.6 cm Univ [facility] Body weight 2022-04-24 16:09:00 77.837 kg Univ [facility] BMI 2022-04-24 16:09:00 29.46 kg/m2 Univ [facility] Systolic blood pressure 2022-04-11 17:08:00 106 mm[Hg] [facility] Diastolic blood pressure 2022-04-11 17:08:00 61 mm[Hg] [facility] Heart rate 2022-04-11 17:08:00 89 /min Un[facility] Body temperature 2022-04-11 17:08:00 36.72 Leydi [facility] Respiratory rate 2022-04-11 17:08:00 18 /min [facility] Body height 2022-04-11 17:08:00 162.6 cm Univ [facility] Body weight 2022-04-11 17:08:00 77.792 kg Univ [facility] BMI 2022-04-11 17:08:00 29.44 kg/m2 Univ [facility] Systolic blood pressure 2022-03-14 20:59:00 116 mm[Hg] [facility] Diastolic blood pressure 2022-03-14 20:59:00 76 mm[Hg] [facility] Heart rate 2022-03-14 20:59:00 93 /min [facility] Body temperature 2022-03-14 20:59:00 36.44 Leydi [facility] Respiratory rate 2022-03-14 20:59:00 18 /min [facility] Body height 2022-03-14 20:59:00 162.6 cm Univ [facility] Body weight 2022-03-14 20:59:00 76.856 kg Univ [facility] BMI 2022-03-14 20:59:00 29.08 kg/m2 Univ [facility] Systolic blood pressure 2022-02-02 15:48:00 120 mm[Hg] [facility] Diastolic blood pressure 2022-02-02 15:48:00 72 mm[Hg] [facility] Heart rate 2022-02-02 15:48:00 88 /min [facility] Body temperature 2022-02-02 15:48:00 36.44 Leydi [facility] Respiratory rate 2022-02-02 15:48:00 18 /min [facility] Body height 2022-02-02 15:48:00 162.6 cm Univ [facility] Body weight 2022-02-02 15:48:00 73.029 kg Univ [facility] BMI 2022-02-02 15:48:00 27.64 kg/m2 Univ [facility] Systolic blood pressure 2022-01-20 18:56:00 111 mm[Hg] [facility] Diastolic blood pressure 2022-01-20 18:56:00 78 mm[Hg] [facility] Heart rate 2022-01-20 18:56:00 79 /min Un[facility] Body temperature 2022-01-20 18:56:00 36.33 Leydi [facility] Respiratory rate 2022-01-20 18:56:00 16 /min [facility] Body height 2022-01-20 18:56:00 162.6 cm Univ [facility] Body weight 2022-01-20 18:56:00 74.39 kg [facility] BMI 2022-01-20 18:56:00 28.15 kg/m2 Univ [facility] Systolic blood pressure 2022-01-12 15:18:00 122 mm[Hg] [place] [facility] Diastolic blood pressure 2022-01-12 15:18:00 70 mm[Hg] [facility] Heart rate 2022-01-12 15:18:00 73 /min Unive [facility] Body temperature 2022-01-12 15:18:00 36.33 Leydi [facility] Respiratory rate 2022-01-12 15:18:00 18 /min [facility] Body height 2022-01-12 15:18:00 162.6 cm [facility] Body weight 2022-01-12 15:18:00 74.021 kg [facility] BMI 2022-01-12 15:18:00 28.01 kg/m2 [facility] Systolic blood pressure 2021-10-14 19:22:00 115 mm[Hg] [facility] Diastolic blood pressure 2021-10-14 19:22:00 69 mm[Hg] [facility] Heart rate 2021-10-14 19:22:00 79 /min Unive [facility] Respiratory rate 2021-10-14 19:22:00 18 /min [facility] Body height 2021-10-14 19:22:00 162.6 cm [facility] Body weight 2021-10-14 19:22:00 78.472 kg [facility] BMI 2021-10-14 19:22:00 29.70 kg/m2 [facility] Oxygen saturation in Arterial blood by Pulse oximetry 2021-10-14 19:22:00 98 /min [facility] BP Systolic 2024-11-13 08:12:00 108 mm[Hg] Wayne De Leon BP Diastolic 2024-11-13 08:12:00 72 mm[Hg] Hans De Leon Weight Measured 2024-11-13 08:12:00 156.60 pounds Clint De Leon Height Measured 2024-11-13 08:12:00 65.00 inches Clint F Moises Body Temperature 2024-11-13 08:12:00 98.20 degrees Clint F Moises Heart Rate 2024-11-13 08:12:00 76.00 /min Lizbeth en F Moises Respiratory Rate 2024-11-13 08:12:00 18.00 /min Clint F Moises BP Systolic 2024-10-20 08:56:00 108 mm[Hg] Step hen F Moises BP Diastolic 2024-10-20 08:56:00 75 mm[Hg] Hans phen F Moises Weight Measured 2024-10-20 08:56:00 156.20 pounds Clint F Moises Height Measured 2024-10-20 08:56:00 65.00 inches Clint F Moises Body Temperature 2024-10-20 08:56:00 98.20 degrees Clint F Moises Heart Rate 2024-10-20 08:56:00 71.00 /min Lizbeth en F Moises Respiratory Rate 2024-10-20 08:56:00 18.00 /min Clint F Moises BP Systolic 2024-07-21 16:21:00 100 mm[Hg] Step hen F Moises BP Diastolic 2024-07-21 16:21:00 80 mm[Hg] Hans phen F Moises Weight Measured 2024-07-21 16:21:00 148.00 pounds Clint F Moises Height Measured 2024-07-21 16:21:00 65.00 inches Clint F Moises Body Temperature 2024-07-21 16:21:00 98.00 degrees Clint F Moises Heart Rate 2024-07-21 16:21:00 79.00 /min Lizbeth en F Moises Respiratory Rate 2024-07-21 16:21:00 18.00 /min Clint F Moises Systolic blood pressure 2024-02-21 14:05:00 113 mm[Hg] [place] [facility] Diastolic blood pressure 2024-02-21 14:05:00 70 mm[Hg] [facility] Heart rate 2024-02-21 14:05:00 70 [facility] Body temperature 2024-02-21 14:05:00 35.83 Leydi [facility] Body height 2024-02-21 14:05:00 162.6 cm [facility] Body weight 2024-02-21 14:05:00 76.204 kg [facility] BMI 2024-02-21 14:05:00 28.84 kg/m2 [facility] Oxygen saturation in Arterial blood by Pulse oximetry 2024-01-11 20:29:00 97 /min [facility] Weight Measured 2023-12-04 08:22:00 165.00 pounds Clint De Leon Height Measured 2023-12-04 08:22:00 65.00 inches Clint Snow De Leon Body Temperature 2023-12-04 08:22:00 97.80 degrees Clint F Moises Heart Rate 2023-12-04 08:22:00 65.00 /min Lizbeth en F Moises Respiratory Rate 2023-12-04 08:22:00 18.00 /min Clint F Moises BP Systolic 2023-12-04 08:22:00 114 mm[Hg] Step hen F Moises BP Diastolic 2023-12-04 08:22:00 80 mm[Hg] Hans phen F Moises Respiratory rate 2023-10-28 16:34:00 18 /min [facility] BP Systolic 2023-02-27 11:47:00 100 mm[Hg] Step hen F Moises BP Diastolic 2023-02-27 11:47:00 76 mm[Hg] Hans phen F Moises Weight Measured 2023-02-27 11:47:00 173.00 pounds Clint F Moises Height Measured 2023-02-27 11:47:00 65.00 inches Clint F Moises Body Temperature 2023-02-27 11:47:00 97.90 degrees Clint F Moises Heart Rate 2023-02-27 11:47:00 81.00 /min Lizbeth en F Moises Respiratory Rate 2023-02-27 11:47:00 20.00 /min Clint F Moises BP Systolic 2022-12-13 10:32:00 90 mm[Hg] Step hen F Moises BP Diastolic 2022-12-13 10:32:00 58 mm[Hg] Hans phen F Moises Weight Measured 2022-12-13 10:32:00 174.00 pounds Clint F Moises Height Measured 2022-12-13 10:32:00 65.00 inches Clint F Moises Body Temperature 2022-12-13 10:32:00 97.50 degrees Clint De Leon Heart Rate 2022-12-13 10:32:00 82.00 /min Lizbeth De Leon Respiratory Rate 2022-12-13 10:32:00 16.00 /min Clint De Leon Procedures Procedure Date / Time Performed Performing Clinician Source MR THORACIC SPINE W WO CONTRAST 2024-02-13 19:58:00 [facility] MR BRAIN W WO CONTRAST WITH NEUROQUANT 2024-02-12 20:01:00 [facility] MR CERVICAL SPINE W WO CONTRAST 2024-02-12 19:49:00 [facility] AUTOMATED VISUAL FIELD, EXTENDED - OU - BOTH EYES 2024-01-08 20:10:40 Prudencio [facility] OCT, OPTIC NERVE - OU - BOTH EYES 2023-11-06 21:34:11 Prudencio [facility] OPTIC DISC PHOTOS - OU - BOTH EYES 2023-11-06 21:32:41 Prudencio [facility] POCT GLUCOSE (AUTOMATED) 2023-10-28 13:39:00 Dell Rocha [facility] PHOSPHORUS 2023-10-28 07:04:00 Joshua oliva [facility] MAGNESIUM 2023-10-28 07:04:00 Joshua oliva [facility] TEST, SERUM 2023-10-28 07:04:00 Nida Torres [facility] COMP. METABOLIC PANEL (33614) 2023-10-28 07:04:00 Joshua Torres [facility] CBC WITH DIFF 2023-10-28 07:04:00 Joshua oliva [facility] URINALYSIS 2023-10-28 01:58:00 Darlyn Bansal [facility] POCT TEST 2023-10-05 20:14:00 Angie Patel [facility] CBC WITH DIFF 2023-09-13 09:47:00 Dilcia Perez [facility] PREPARE PACKED RBC 2023-09-12 13:59:30 Elbert Boston [facility] VENOUS CORD GAS 2023-09-12 07:41:00 Sania Rubi Mai [facility] CENTRAL NEURAXIAL BLOCK 2023-09-12 05:05:00 Hilario Beard [facility] CBC WITH DIFF 2023-09-12 04:44:00 Sania Rubi Mai [facility] HEPATITIS B SURFACE ANTIGEN 2023-09-12 04:44:00 Irasema Rubi Mai [facility] PANEL IDENTIFICATION 2023-09-12 04:44:00 Elbert Boston [facility] HB ABO GROUPING 2023-09-12 04:44:00 Sania Rubi Mai [facility] RHO (D) IMMUNE GLOBULIN 2023-09-12 04:44:00 Zan Isbell [facility] HIV 1/2 AG-AB WITH REFLEX 2023-09-12 04:44:00 Irasema Chaves Mai [facility] SYPHILIS IGG/IGM 2023-09-12 04:44:00 Thomas Rubi Mai [facility] HIV 1/2 AG-AB WITH REFLEX 2023-09-12 04:44:00 Irasema Chaves Mai [facility] POCT URINALYSIS W/O SPECIFIC GRAVITY 2023-09-04 20:59:00 Unique Martins [facility] LACTATE DEHYDROGENASE 2023-08-28 16:39:00 Kayli Chang [facility] COMP. METABOLIC PANEL (53805) 2023-08-28 16:39:00 Colt Chang [facility] CBC WITH DIFF 2023-08-28 16:39:00 [facility] 2023-08-28 16:39:00 Sherif Chang [facility] HB ABO GROUPING 2023-08-28 16:39:00 Colt Chang [facility] ANTIBODY TITER INTERPS 2023-08-28 16:39:00 Kassandra Chang [facility] GROUP B STREPTOCOCCUS BY PCR 2023-08-28 16:33:00 Colt Chang [facility] POCT URINALYSIS GLUCOSE & PROTEIN 2023-08-28 16:04:00 Colt Chang [facility] PANEL IDENTIFICATION 2023-08-14 16:47:00 Sherif Chang [facility] HB ABO GROUPING 2023-08-14 16:47:00 Colt Chang [facility] ANTIBODY TITER INTERPS 2023-08-14 16:47:00 Kassandra Chang [facility] POCT URINALYSIS 2023-08-14 00:00:00 Colt Chang [facility] URINALYSIS 2023-07-31 18:43:00 Kary Fernandes [facility] NON-STRESS TEST 2023-07-31 17:21:55 Kayli Chang [facility] POCT URINALYSIS GLUCOSE & PROTEIN 2023-07-31 16:40:00 Colt Chang [facility] GLUCOSE 1 HOUR POST PRANDIAL 2023-07-17 17:00:00 Colt Chang [facility] CBC WITH DIFF 2023-07-17 17:00:00 [facility] 2023-07-17 17:00:00 Sherif Chang [facility] HB ABO GROUPING 2023-07-17 17:00:00 Colt Chang [facility] ANTIBODY TITER INTERPS 2023-07-17 17:00:00 Kassandra Chang [facility] HIV 1/2 AG-AB WITH REFLEX 2023-07-17 17:00:00 Colt Chang [facility] SYPHILIS IGG/IGM 2023-07-17 17:00:00 Colt Chang [facility] TDAP VACCINE, >11 YRS, IM 2023-07-17 16:23:37 Colt Chang [facility] HB ABO GROUPING 2023-06-29 15:42:00 Colt Chang [facility] SECOND AND THIRD TRIMESTER ULTRASOUND 2023-06-21 19:44:00 Colt Chang [facility] POCT URINALYSIS 2023-06-12 16:46:00 Colt Chang [facility] SECOND AND THIRD TRIMESTER ULTRASOUND 2023-05-24 18:05:00 Colt Chang [facility] POCT URINALYSIS GLUCOSE & PROTEIN 2023-05-15 16:39:00 Colt Chang [facility] SECOND AND THIRD TRIMESTER ULTRASOUND 2023-04-26 15:52:00 Colt Chang [facility] NIPT - NON-INVASIVE TEST RESULTS 2023-04-21 06:01:00 Doctor Unassigned, [place] [facility] PANEL IDENTIFICATION 2023-04-13 18:43:00 Sherif Chang [facility] HB ABO GROUPING 2023-04-13 18:43:00 Colt Chang [facility] ANTIBODY TITER INTERPS 2023-04-13 18:43:00 Kassandra Chang [facility] ALPHA FETOPROTEIN-MATERNAL SER 2023-04-13 17:56:00 Colt Chang [facility] CONSENT FOR NIPT 2023-04-13 06:01:00 Doctor Unas signed, [place] [facility] CREATININE U 24 HR 2023-04-02 22:04:00 Colt Chang [facility] PROTEIN QUANT U/24H 2023-04-02 22:04:00 Colt Chang [facility] SECOND AND THIRD TRIMESTER ULTRASOUND 2023-03-15 21:54:00 Colt Chang [facility] GLUCOSE 1 HOUR POST PRANDIAL 2023-03-15 20:58:00 Colt Chang [facility] CBC WITH DIFF 2023-03-15 20:58:00 Colt Chang Un [facility] GLYCOSYLATED HEMOGLOBIN (A1C) 2023-03-15 20:58:00 Colt Chang [facility] HEPATITIS B SURFACE ANTIGEN 2023-03-15 20:58:00 Colt Chang [facility] PANEL IDENTIFICATION 2023-03-15 20:58:00 Sherif Chang [facility] HB ABO GROUPING 2023-03-15 20:58:00 Colt Chang [facility] ANTIBODY TITER INTERPS 2023-03-15 20:58:00 Kassandra Chang [facility] HIV 1/2 AG-AB WITH REFLEX 2023-03-15 20:58:00 Colt Chang [facility] COMP. METABOLIC PANEL ([id number]) 2023-03-15 20:58:00 Colt Chang [facility] RUBELLA SCREEN IGG 2023-03-15 20:58:00 Colt Chang [facility] VZV ANTIBODY SCREEN 2023-03-15 20:58:00 Colt Chang [facility] URINE CULTURE 2023-03-15 20:58:00 Colt Chang Un [facility] SYPHILIS IGG/IGM 2023-03-15 20:58:00 Colt Chang [facility] GC & CHLAMYDIA AMPLIFIED ASSAY 2023-03-15 20:58:00 Colt Chang [facility] TRICHOMONAS AMPLIFIED ASSAY 2023-03-15 20:58:00 Colt Chang [facility] ANTIGEN TYPING PATIENT 2023-03-15 20:58:00 Kassandra Chang [facility] PATIENT RH ANTIGEN TYPING 2023-03-15 20:58:00 Colt Chang [facility] POCT TEST 2023-03-15 19:59:00 [facility] OR MISSED APPOINTMENT POLICY ACKNOWLEDGEMENT 2023-03-15 19:41:58 Doctor Unassigned, [place] [facility] POCT MOLECULAR STREP 2023-02-09 18:56:00 Royce, Mandi brown [facility] ASSIGNMENT OF BENEFITS 2023-02-09 18:48:15 Docto r Unassigned, [place] [facility] 2 HR GLUCOSE TOLERANCE TEST 2022-09-20 16:28:00 Milagros Aden [facility] 1 HR GLUCOSE TOLERANCE TEST 2022-09-20 15:28:00 Milagros Aden [facility] GLUCOSE FASTING 2022-09-20 14:28:00 Milagros Aden [facility] GLUCOSE FASTING 2022-09-20 14:28:00 Milagros Aden [facility] CONSENT/REFUSAL FOR DIAGNOSIS AND TREATMENT 2022-08-15 17:22:32 Doctor Unassigned, [place] [facility] PREPARE PACKED RBC 2022-08-10 12:13:24 Suzie Yang [facility] CBC WITH DIFF 2022-08-10 11:05:00 Mary Vidal [facility] VENOUS CORD GAS 2022-08-10 00:05:00 Vaibhav Beauchamp [facility] CENTRAL NEURAXIAL BLOCK 2022-08-09 22:40:00 Oh Marquez [facility] CBC WITH DIFF 2022-08-09 19:36:00 Vaibhav Beauchamp [facility] HEPATITIS B SURFACE ANTIGEN 2022-08-09 19:36:00 Vaibhav Beauchamp [facility] ANTIGEN TYPING PATIENT 2022-08-09 19:36:00 [facility] PANEL IDENTIFICATION 2022-08-09 19:36:00 [facility] HB ABO GROUPING 2022-08-09 19:36:00 Vaibhav Beauchamp [facility] RHO (D) IMMUNE GLOBULIN 2022-08-09 19:36:00 Me henri Vidal [facility] HIV 1/2 AG-AB WITH REFLEX 2022-08-09 19:36:00 Chucky Beauchamp [facility] SYPHILIS IGG/IGM 2022-08-09 19:36:00 Vaibhav Beauchamp [facility] HOSPITAL ADMISSION 2022-08-09 05:01:00 Doctor Un assigned, [place] [facility] POCT URINALYSIS 2022-08-04 14:34:00 Milagros Aden [facility] POCT URINALYSIS 2022-07-27 20:56:00 Milagros Aden [facility] POCT URINALYSIS 2022-07-21 14:13:00 Milagros Aden [facility] DME/SUPPLY JUSTIFICATION 2022-07-14 05:01:00 Doc tor Unassigned, [place] [facility] POCT URINALYSIS 2022-07-06 16:01:00 Milagros Aden [facility] CONSENT/REFUSAL FOR DIAGNOSIS AND TREATMENT 2022-06-26 16:17:14 Doctor Unassigned, [place] [facility] PATIENT LEAVING AGAINST MEDICAL ADVICE 2022-06-26 05:01:00 Doctor Unassigned, [place] [facility] POCT URINALYSIS 2022-06-22 17:19:00 Milagros Aden [facility] POCT URINALYSIS 2022-06-08 17:09:00 Milagros Aden [facility] TDAP VACCINE, >11 YRS, IM 2022-05-25 21:55:48 Janine Amador [facility] POCT URINALYSIS 2022-05-25 00:00:00 Milagros Aden [facility] GLUCOSE 1 HOUR POST PRANDIAL 2022-05-11 15:40:00 Janine De La Cruz [facility] CBC WITH DIFF 2022-05-11 15:40:00 Milagros Aden [facility] POCT URINALYSIS 2022-05-11 14:34:00 Milagros Aden [facility] SECOND AND THIRD TRIMESTER ULTRASOUND 2022-05-04 19:14:00 Milagros Aden [facility] POCT URINALYSIS 2022-04-11 17:09:00 Milagros Aden [facility] POCT URINALYSIS 2022-03-14 21:02:00 Milagros Aden [facility] EXTERNAL PROVIDER RECORDS 2022-02-14 05:01:00 Do ctor Unassigned, [place] [facility] POCT URINALYSIS 2022-02-02 15:50:00 Milagros Aden [facility] 3 HR GLUCOSE TOLERANCE TEST 2022-01-17 16:32:00 Milagros Aden [facility] 2 HR GLUCOSE TOLERANCE TEST 2022-01-17 15:32:00 Milagros Aden [facility] 1 HR GLUCOSE TOLERANCE TEST 2022-01-17 14:32:00 Milagros Aden [facility] PROTEIN QUANT U/24H 2022-01-17 13:39:00 Mick Aden [facility] GLUCOSE FASTING 2022-01-17 13:32:00 Milagros Aden [facility] 3 HR GLUCOSE TOLERANCE PANEL 2022-01-17 13:32:00 Milagros Aden [facility] GLUCOSE 1 HOUR POST PRANDIAL 2022-01-12 16:18:00 Milagros Aden [facility] CBC WITH DIFF 2022-01-12 16:18:00 Milagros Aden [facility] RUBELLA SCREEN IGG 2022-01-12 16:18:00 William Aden [facility] VZV ANTIBODY SCREEN 2022-01-12 16:18:00 Mick Aden [facility] HEPATITIS B SURFACE ANTIGEN 2022-01-12 16:18:00 Milagros Aden [facility] HB ABO GROUPING 2022-01-12 16:18:00 Milagros Aden [facility] HIV 1/2 AG-AB WITH REFLEX 2022-01-12 16:18:00 Milagros Aden [facility] GALV ONLY - SYPHILIS IGG/IGM 2022-01-12 16:18:00 Milagros Aden [facility] POCT URINALYSIS W/O SPECIFIC GRAVITY 2022-01-12 15:11:00 Milagros Aden [facility] POCT TEST 2022-01-12 15:09:00 Mick Aden [facility] ASSIGNMENT OF BENEFITS 2022-01-12 14:47:31 Docto r Unassigned, [place] [facility] LAB ONLY PAP SMEAR-LIQUID BASED 2018-02-12 20:10:00 Oliva Amador [facility] Encounters Start Date/Time End Date/Time Encounter Type Admission Type Attending Clinicians Care Facility Care Department Encounter ID Source 2023-07-31 15:06:35 Outpatient P [facility] [id number] [facility] 2021-02-14 01:37:44 Emergency [facility] [id number] [facility] 2021-02-12 17:35:34 Outpatient P [facility] [id number] [facility] 2021-02-12 17:28:27 Outpatient [facility] [id number] [facility] 2021-02-11 05:23:09 Emergency [facility] [id number] [facility] 2024-11-13 07:56:50 2024-11-13 07:56:[address] [facility] [id number] Clint De Leon 2024-11-13 00:00:00 2024-11-13 00:00:00 Outpatient Visit [facility] [id number] Clint De Leon 2024-11-11 10:45:00 2024-11-11 12:42:58 Office Visit MARÍA CURRIE [facility] ([facility] [id number] [facility] 2024-10-28 10:00:38 2024-10-28 10:00:38 Outpatient SFA [facility] [id number] Clint De Leon 2024-10-23 11:39:07 2024-10-23 11:39:07 Outpatient SFA [facility] [id number] Clint De Leon 2024-10-22 16:18:37 2024-10-22 16:18:37 Outpatient SFA [facility] [id number] Clint De Leon 2024-10-20 08:39:47 2024-10-20 08:39:47 Outpatient SFA [facility] [id number] Clint De Leon 2024-10-20 00:00:00 2024-10-20 00:00:00 Outpatient Visit [facility] [id number] Clint De Leon 2024-08-11 13:00:00 2024-08-11 13:00:00 Outpatient KAREN LAW NOOR [facility] [id number] [facility] 2024-07-23 16:21:28 2024-07-23 16:21:[address] [facility] [id number] Clint De Leon 2024-07-21 16:13:29 2024-07-21 16:13:29 Outpatient SFA [facility] [id number] Clint De Leon 2024-07-21 00:00:00 2024-07-21 00:00:00 Outpatient Visit SFA [id number] Clint De Leon 2024-07-11 10:30:00 2024-07-11 10:30:00 Outpatient ESTEVAN CHEN [facility] [id number] [facility] 2024-06-20 09:20:00 2024-06-20 09:20:00 Outpatient BITA MONET [facility] [id number] [facility] 2023-10-29 00:00:00 2024-05-31 07:18:15 Orders Only Yg Geovanna [facility] ([facility]) 1.2.840.114 350.1.13.10 4.2.7.2.686 [id number] [facility] 2021-10-14 00:00:00 2024-05-31 02:47:33 Orders Only Nicola Jimenez [facility] ([facility]) 1.2.840.114 350.1.13.10 4.2.7.2.686 [id number] [id number] [facility] 2021-10-14 00:00:00 2024-05-31 02:47:33 Orders Only Nicola Jimenez [facility] ([facility]) 1.2.840.114 350.1.13.10 4.2.7.2.686 [id number] [id number] [facility] 2021-10-14 00:00:00 2024-05-31 02:47:33 Orders Only Nicola Jimenez [facility] ([facility]) 1.2.840.114 350.1.13.10 4.2.7.2.686 [id number] [facility] 2022-02-06 00:00:00 2024-05-31 02:45:32 Orders Only Sophia Sarkar Rocio [facility] ([facility]) 1.2.840.114 350.1.13.10 4.2.7.2.686 [id number] [facility] 2024-05-02 11:30:00 2024-05-02 11:30:00 Outpatient ARGELIA BAIRD [facility] [id number] [facility] 2024-03-17 00:00:00 2024-03-26 16:09:03 Patient Secure Bita Donaldson 1.2.840.1 72115.1.1 3.104.2.7 .3.665447 [id number] [facility] 2024-02-15 00:00:00 2024-03-22 18:24:53 Patient Secure Argelia Velazquez [facility] 1.2840.114 350.1.13.10 4.2.7.2.686 [id number] [id number] [facility] 2024-02-21 08:00:00 2024-02-21 08:26:28 Outpatient R BITA SUAREZ [facility] [id number] [facility] 2024-02-21 08:00:00 2024-02-21 08:26:28 Office Visit Bita Suarez [facility] 1.84.114 350.1.13.10 4.2.7.2.686 [id number] [facility] 2024-02-13 14:03:00 2024-02-13 23:59:00 Outpatient R ARGELIA TOBIAS [facility] [id number] [facility] 2024-02-13 13:45:00 2024-02-13 23:59:00 Hospital Encounter Argelia Tobias [facility] 1.840.114 350.1.13.10 4.2.7.2.686 [id number] [facility] 2024-02-12 13:28:40 2024-02-12 23:59:00 Outpatient R ARGELIA TOBIAS [facility] [id number] [facility] 2024-02-12 13:28:40 2024-02-12 23:59:00 Hospital Encounter Argelia Tobias [facility] 1.2840.114 350.1.13.10 4.2.7.2.686 [id number] [facility] 2024-02-12 13:00:00 2024-02-12 13:27:00 Hospital Encounter Argelia Tobias [facility] 1.2.840.114 350.1.13.10 4.2.7.2.686 [id number] [facility] 2024-01-29 00:00:00 2024-01-29 00:00:00 Outpatient R ARGELIA TOBIAS [facility] [id number] [facility] 2024-01-29 00:00:00 2024-01-29 00:00:00 Outpatient R ARGELIA TOBIAS [facility] [id number] [facility] 2024-01-24 00:00:00 2024-01-24 11:17:19 Patient Outreach Nenita Varma Jocelyn [facility] 1.2.840.114 350.1.13.10 4.2.7.2.686 [id number] [id number] [facility] 2024-01-17 00:00:00 2024-01-17 15:16:24 Patient Outreach Nenita Varma Jocelyn [facility] 1.2.840.114 350.1.13.10 4.2.7.2.686 [id number] [id number] [facility] 2024-01-14 00:00:00 2024-01-14 14:50:44 Patient Outreach Nen[facility] 1.2.840.114 350.1.13.10 4.2.7.2.686 [id number] [id number] [facility] 2024-01-11 15:00:00 2024-01-11 16:03:07 Outpatient R ESTEVAN MARQUES [facility] [id number] [facility] 2024-01-11 15:00:00 2024-01-11 16:03:07 Office Visit Estevan Marques [facility]3] TRISTAN DAMON [facility] 1.20.114 350.1.13.10 4.2.7.2.686 [id number] [facility] 2024-01-08 14:00:00 2024-01-08 14:15:00 Office Visit Eva Flannery [facility] 1..114 350.1.13.10 4.2.7.2.686 [id number] [facility] 2024-01-08 10:30:00 2024-01-08 11:29:44 Outpatient MAYE CASANOVA [facility] [id number] [facility] 2024-01-08 10:30:00 2024-01-08 11:29:44 Office Visit Bernarda Carrillo Brandon P [facility] ([facility]) 1.840.114 350.1.13.10 4.2.7.2.686 [id number] [facility] 2023-12-31 00:00:00 2024-01-04 12:35:42 Telephone Argelia Tobias [facility] 1.2840.114 350.1.13.10 4.2.7.2.686 [id number] [id number] [facility] 2023-12-24 14:45:00 2023-12-24 14:45:00 Outpatient MEENU RAINEY [facility] [id number] [facility] 2023-11-09 00:00:00 2023-12-15 18:24:51 Patient Secure Msg Argelia Tobias [facility] 1.2840.114 350.1.13.10 4.2.7.2.686 [id number] [id number] [facility] 2023-12-04 08:06:27 2023-12-04 08:06:27 Outpatient SFA SFA [id number] Clint De Leon 2023-12-04 00:00:00 2023-12-04 00:00:[address] [facility] [id number] Clint De Leon 2023-10-31 00:00:00 2023-12-01 18:18:55 Patient Secure Msg Dell Rocha [facility] 1..840.114 350.1.13.10 4.2.7.2.686 [id number] [id number] [facility] 2023-11-29 15:00:00 2023-11-29 15:15:00 Office Visit Eva Flann[facility] 1..840.114 350.1.13.10 4.2.7.2.686 [id number] [facility] 2023-11-29 15:00:00 2023-11-29 15:00:00 Outpatient R PRUDENCIO [facility] [id number] [facility] 2023-11-22 15:15:00 2023-11-22 15:15:00 [id number] 2023-11-13 00:00:00 2023-11-13 00:00:00 Outpatient DELL RIZO [facility] [id number] [facility] 2023-11-08 00:00:00 2023-11-09 09:42:37 Telephone Dell Rocha [facility] 1..840.114 350.1.13.10 4.2.7.2.686 [id number] [id number] [facility] 2023-11-06 13:30:00 2023-11-06 15:16:12 Outpatient [facility] [id number] [facility] 2023-11-06 13:30:00 2023-11-06 15:16:12 Office Visit Eva Flannery [facility] 1.2840.114 350.1.13.10 4.2.7.2.686 [id number] [facility] 2023-10-30 00:00:00 2023-11-01 07:48:35 Telephone Argelia Tobias [facility] 1.2.840.114 350.1.13.10 4.2.7.2.686 [id number] [id number] [facility] 2023-10-27 20:24:00 2023-10-28 14:13:00 Outpatient DELL WRIGHT [facility] MALATHI [id number] [facility] 2023-10-27 20:24:00 2023-10-28 14:13:00 Hospital Encounter Darlyn Bansal Laura J [facility] 1.2.840.114 350.1.13.10 4.2.7.2.686 [id number] [facility] 2023-10-19 11:30:00 2023-10-19 12:09:30 Outpatient ARGELIA BAIRD [facility] [id number] [facility] 2023-10-19 11:30:00 2023-10-19 12:09:30 Office Visit Argelia Tobias [facility] 1.2.840.114 350.1.13.10 4.2.7.2.686 [id number] [facility] 2023-10-19 11:30:00 2023-10-19 11:30:00 Outpatient ARGELIA BAIRD [facility] [id number] [facility] 2023-10-05 14:30:00 2023-10-05 15:25:11 Outpatient ANGIE WELSH [facility] [id number] [facility] 2023-10-05 14:30:00 2023-10-05 15:25:11 Routine Visit JorgeAngie [facility] 1.2.840.114 350.1.13.10 4.2.7.2.686 [id number] [facility] 2023-08-23 00:00:00 2023-09-29 18:24:26 Patient Secure Colt Dalton [facility] 1.2.840.114 350.1.13.10 4.2.7.2.686 [id number] [facility] 2023-08-28 00:00:00 2023-09-29 18:18:49 Patient Secure Msg Chang [facility] 1.2840.114 350.1.13.10 4.2.7.2.686 [id number] [facility] 2023-09-21 09:30:00 2023-09-21 09:30:00 Outpatient R AKINSIMILAGROS TALLEY [facility] [id number] [facility] 2023-09-14 16:55:00 2023-09-14 17:46:00 Emergency X LIN, AMIR LIN AMIR [facility] E[facility] [id number] [facility] 2023-09-14 16:55:00 2023-09-14 17:46:00 Emergency Lin Amir [facility] 1.2840.114 350.1.13.10 4.2.7.2.686 [id number] [facility] 2023-09-11 22:05:00 2023-09-13 13:54:00 Inpatient X ELBERT BOSTON [facility] RAI [id number] [facility] 2023-09-11 22:05:00 2023-09-13 13:54:00 Hospital Encounter Elbert [facility] 1.2.840.114 350.1.13.10 4.2.7.2.686 [id number] [facility] 2023-09-12 00:07:00 2023-09-13 09:18:00 Anesthesia Event Maryam Beard, Hector [facility] 1.840.114 350.1.13.10 4.2.7.2.686 [id number] [facility] 2023-09-12 09:00:00 2023-09-12 09:00:00 Outpatient R JANINE DE LA CRUZ [facility] [id number] [facility] 2023-09-11 13:15:00 2023-09-11 13:15:00 Outpatient R KAMILLA MARTINSNYU [facility] [id number] [facility] 2023-09-04 15:30:00 2023-09-04 16:08:34 Outpatient R KAMILLA MARTINSNYU [facility] [id number] [facility] 2023-09-04 15:30:00 2023-09-04 16:08:34 [facility] 1.840.114 350.1.13.10 4.2.7.2.686 [id number] [facility] 2023-08-28 10:45:00 2023-08-28 11:40:31 Outpatient R COLT CHANG EMILY [facility] [id number] [facility] 2023-08-28 10:45:00 2023-08-28 11:40:31 Routine Visit Colt Chang [facility] 1.840.114 350.1.13.10 4.2.7.2.686 [id number] [facility] 2023-08-14 11:15:00 2023-08-14 11:30:00 Garbage Worker Visit [facility] Colt Chang [facility] 1.2840.114 350.1.13.10 4.2.7.2.686 [id number] [facility] 2023-08-14 10:45:00 2023-08-14 11:26:47 [facility] 1.2840.114 350.1.13.10 4.2.7.2.686 [id number] [facility] 2023-08-14 11:15:00 2023-08-14 11:15:00 Outpatient R COLT CHANG EMILY [facility] [id number] [facility] 2023-08-07 00:00:00 2023-08-07 00:00:00 [facility] 1.20.114 350.1.13.10 4.2.7.2.686 [id number] [facility] 2023-08-07 00:00:00 2023-08-07 00:00:00 Telephone Colt Chang [facility] 1.2.840.114 350.1.13.10 4.2.7.2.686 [id number] [facility] 2023-08-01 00:00:00 2023-08-01 00:00:00 [facility] 1.2.840.114 350.1.13.10 4.2.7.2.686 [id number] 113 [id number] [facility] 2023-07-31 12:35:00 2023-07-31 15:00:00 Outpatient P KRISTYN ABDUL [facility] RA[facility] [id number] [facility] 2023-07-31 12:35:00 2023-07-31 15:00:00 Hospital Encounter Franko [facility] 1.2.840.114 350.1.13.10 4.2.7.2.686 [id number] [facility] 2023-07-31 11:15:00 2023-07-31 12:25:41 Outpatient COLT GANT EMILY [facility] [id number] [facility] 2023-07-31 11:15:00 2023-07-31 12:25:41 Routine Visit Colt Chang [facility] 1.840.114 350.1.13.10 4.2.7.2.686 [id number] [facility] 2023-07-17 10:45:00 2023-07-17 12:03:49 Outpatient COLT GANT EMILY [facility] [id number] [facility] 2023-07-17 10:45:00 2023-07-17 12:03:49 Routine Visit Colt Chang [facility] 1.840.114 350.1.13.10 4.2.7.2.686 [id number] [facility] 2023-07-17 00:00:00 2023-07-17 00:00:00 Patient Secure Msg Colt Chang [facility] 1.840.114 350.1.13.10 4.2.7.2.686 [id number] [facility] 2023-07-10 10:45:00 2023-07-10 10:45:00 Outpatient COLT GANT EMILY [facility] [id number] [facility] 2023-07-09 14:45:00 2023-07-09 15:29:38 Outpatient BHAVIK LIAO [facility] [id number] [facility] 2023-07-09 14:45:00 2023-07-09 15:29:38 Office Visit Kay[facility] White [facility] .[facility].114 350.1.13.10 4.2.7.2.686 [id number] [facility] 2023-06-29 10:30:00 2023-06-29 10:42:12 Outpatient JANINE URRUTIA [facility] [id number] [facility] 2023-06-29 10:30:00 2023-06-29 10:42:12 Garbage Worker Visit Lab, AllysonRmchJanine Matthews [facility] 1..840.114 350.1.13.10 4.2.7.2.686 [id number] [facility] 2023-06-22 00:00:00 2023-06-22 00:00:00 [facility] 1.840.114 350.1.13.10 4.2.7.2.686 [id number] 113 [id number] [facility] 2023-06-21 13:00:00 2023-06-21 13:47:41 Outpatient P ROSALEE DICKSON SHANNON [facility] [id number] [facility] 2023-06-21 13:00:00 2023-06-21 13:47:41 Garbage Worker Visit Ultrasound, Rosalee Rebollar [facility] 1..840.114 350.1.13.10 4.2.7.2.686 [id number] [facility] 2023-06-12 10:30:00 2023-06-12 11:24:34 Outpatient COLT GANT EMILY [facility] [id number] [facility] 2023-06-12 10:30:00 2023-06-12 11:24:34 Routine Visit Colt Chang [facility] 1.114 350.1.13.10 4.2.7.2.686 [id number] [facility] 2023-05-25 00:00:00 2023-05-25 00:00:00 Abstract Colt Chang [facility] 1.114 350.1.13.10 4.2.7.2.686 [id number] 113 [id number] [facility] 2023-05-24 11:00:00 2023-05-24 11:45:59 Outpatient P ROSALEE DICKSON SHANNON [facility] [id number] [facility] 2023-05-24 11:00:00 2023-05-24 11:45:59 Garbage Worker Visit Ultrasound, Rosalee Rebollar [facility] 1.114 350.1.13.10 4.2.7.2.686 [id number] [facility] 2023-05-24 10:00:00 2023-05-24 10:00:00 Outpatient R [facility] [id number] [facility] 2023-05-15 11:00:00 2023-05-15 11:15:00 Garbage Worker Visit [facility] Colt Chang [facility] 1.114 350.1.13.10 4.2.7.2.686 [id number] [facility] 2023-05-15 10:30:00 2023-05-15 10:51:40 Outpatient R COLT CHANG EMILY [facility] [id number] [facility] 2023-05-15 10:30:00 2023-05-15 10:51:40 Routine Visit Colt Chang [facility] 1.114 350.1.13.10 4.2.7.2.686 [id number] [facility] 2023-05-04 13:00:00 2023-05-04 13:00:00 Outpatient R ARGELIA TOBIAS [facility] [id number] [facility] 2023-04-27 00:00:00 2023-04-27 00:00:00 Abstract Colt Chang [facility] 1..114 350.1.13.10 4.2.7.2.686 [id number] [facility] 2023-04-26 09:00:00 2023-04-26 10:06:50 Outpatient P EVELYNE MANN [facility] [id number] [facility] 2023-04-26 09:00:00 2023-04-26 10:06:50 Garbage Worker Visit Ultrasound, [facility]ne Wetzel [facility] 1.114 350.1.13.10 4.2.7.2.686 [id number] [facility] 2023-04-21 00:00:00 2023-04-21 00:00:00 Orders Only Doctor Unassigned, [place] [facility] 1..114 350.1.13.10 4.2.7.2.686 [id number] [facility] 2023-04-16 00:00:00 2023-04-16 00:00:00 Patient Secure Msg Colt Chang [facility] 1.114 350.1.13.10 4.2.7.2.686 [id number] 113 [id number] [facility] 2023-04-13 12:45:00 2023-04-13 13:00:00 Garbage Worker Visit [facility] Colt Chang [facility] 1..114 350.1.13.10 4.2.7.2.686 [id number] [facility] 2023-04-13 10:30:00 2023-04-13 12:00:14 Outpatient COLT GANT EMILY [facility] [id number] [facility] 2023-04-13 10:30:00 2023-04-13 12:00:14 Routine Visit Colt Chang [facility] .114 350.1.13.10 4.2.7.2.686 [id number] 113 [id number] [facility] 2023-04-13 00:00:00 2023-04-13 00:00:00 Orders Only Doctor Unassigned, [place] [facility] ..114 350.1.13.10 4.2.7.2.686 [id number] [facility] 2023-04-05 08:30:00 2023-04-05 09:00:00 Telemedici ne Visit Fellow, Ezio Rodgers Blu [facility] ..114 350.1.13.10 4.2.7.2.686 [id number] [facility] 2023-04-05 08:30:00 2023-04-05 08:30:00 Outpatient BLU DAVE COREY [facility] [id number] [facility] 2023-04-02 15:15:00 2023-04-02 16:04:15 Outpatient MILAGROS HOWARD [facility] [id number] [facility] 2023-04-02 15:15:00 2023-04-02 16:04:15 Garbage Worker Visit Lab, Milagros Crowell [facility] .0.114 350.1.13.10 4.2.7.2.686 [id number] [facility] 2023-03-16 00:00:00 2023-03-16 00:00:00 Case Management Colt Chang [facility] 1.0.114 350.1.13.10 4.2.7.2.686 [id number] 113 [id number] [facility] 2023-03-16 00:00:00 2023-03-16 00:00:00 Abstract Colt Chang [facility] 1..114 350.1.13.10 4.2.7.2.686 [id number] 113 [id number] [facility] 2023-03-15 15:30:00 2023-03-15 15:41:01 Outpatient P SUSANNE PEDRAZA [facility] [id number] [facility] 2023-03-15 15:30:00 2023-03-15 15:41:01 Garbage Worker Visit 3, [facility] Us Room Colt Chang Hassan M [facility] 1.114 350.1.13.10 4.2.7.2.686 [id number] [facility] 2023-03-15 13:30:00 2023-03-15 15:00:50 Initial Visit Colt Chang Rajat [facility] 1..114 350.1.13.10 4.2.7.2.686 [id number] [facility] 2023-03-15 00:00:00 2023-03-15 00:00:00 Orders Only Doctor Unassigned, [place] [facility] 1.0.114 350.1.13.10 4.2.7.2.686 [id number] [facility] 2023-02-27 11:40:02 2023-02-27 11:40:[address] [facility] [id number] Clint De Leon 2023-02-09 13:40:00 2023-02-09 14:00:00 Urgent Care Ansley Urias Unknown, Attending [facility] SALLY IVY?[facility] 1.84.114 350.1.13.10 4.2.7.2.686 [id number] [facility] 2023-02-09 13:40:00 2023-02-09 13:40:00 Outpatient R ANSLEY URIAS [facility] [id number] [facility] 2023-02-09 00:00:00 2023-02-09 00:00:00 Orders Only Doctor Unassigned, [place] [facility] 1.84.114 350.1.13.10 4.2.7.2.686 [id number] [facility] 2022-12-13 10:38:05 2022-12-13 10:38:[address] [facility] [id number] Clint De Leon 2022-10-27 13:30:00 2022-10-27 14:30:55 Outpatient ARGELIA BAIRD [facility] [id number] [facility] 2022-10-27 13:30:00 2022-10-27 14:30:55 Office Visit Argelia Tobias [facility] 1..114 350.1.13.10 4.2.7.2.686 [id number] [facility] 2022-09-26 00:00:00 2022-09-26 00:00:00 Patient Secure Msg Doctor Unassigned, [place] [facility] 1.114 350.1.13.10 4.2.7.2.686 [id number] [facility] 2022-09-20 08:00:00 2022-09-20 10:32:27 Outpatient R MILAGROS ADEN [facility] [id number] [facility] 2022-09-20 08:00:00 2022-09-20 10:32:27 Office Visit Milagros Aden [facility] 1.2.840.114 350.1.13.10 4.2.7.2.686 [id number] [facility] 2022-09-19 00:00:00 2022-09-19 00:00:00 Telephone Micheline [facility] 1.2840.114 350.1.13.10 4.2.7.2.686 [id number] [facility] 2022-09-15 00:00:00 2022-09-15 00:00:00 Telephone Deweyjyoti [facility] 1.2840.114 350.1.13.10 4.2.7.2.686 [id number] [facility] 2022-09-15 00:00:00 2022-09-15 00:00:00 Telephone Diamante Fernandes [facility] 1.20.114 350.1.13.10 4.2.7.2.686 [id number] [facility] 2022-08-30 09:45:00 2022-08-30 10:29:01 Outpatient R MILAGROS ADEN [facility] [id number] [facility] 2022-08-30 09:45:00 2022-08-30 10:29:01 Routine Visit Milagros Aden [facility] 1.2840.114 350.1.13.10 4.2.7.2.686 [id number] [facility] 2022-08-15 12:27:00 2022-08-15 13:38:00 Emergency YANNA GUSMAN TIMOTHY SCGOPI ERT [id number] [facility] 2022-08-15 12:27:00 2022-08-15 13:38:00 Emergency Yanna Nguyen [facility] 1.2.840.114 350.1.13.10 4.2.7.2.686 [id number] [facility] 2022-08-15 00:00:00 2022-08-15 00:00:00 Telephone Milagros Aden [facility] 1.2.840.114 350.1.13.10 4.2.7.2.686 [id number] [facility] 2022-08-15 00:00:00 2022-08-15 00:00:00 Telephone Milagros Aden [facility] 1.2840.114 350.1.13.10 4.2.7.2.686 [id number] [facility] 2022-08-09 11:03:00 2022-08-11 13:30:00 Inpatient X MINERVA YANG [facility] [id number] [facility] 2022-08-09 11:03:00 2022-08-11 13:30:00 [facility]114 350.1.13.10 4.2.7.2.686 [id number] [facility] 2022-08-09 17:20:00 2022-08-09 20:30:00 Anesthesia Event Wade Ku Allison [facility] 1.2840.114 350.1.13.10 4.2.7.2.686 [id number] [facility] 2022-08-09 00:00:00 2022-08-09 00:00:00 Orders Only Doctor Unassigned, [place] [facility] 1..840.114 350.1.13.10 4.2.7.2.686 [id number] [facility] 2022-08-04 09:15:00 2022-08-04 09:44:51 Outpatient R MILAGROS ADEN [facility] [id number] [facility] 2022-08-04 09:15:00 2022-08-04 09:44:51 Routine Visit Milagros Aden [facility] 1..840.114 350.1.13.10 4.2.7.2.686 [id number] 107 [id number] [facility] 2022-07-27 15:30:00 2022-07-27 16:20:36 Outpatient R JANINE DE LA CRUZ [facility] [id number] [facility] 2022-07-27 15:30:00 2022-07-27 16:20:36 Routine Visit Janine De La Cruz [facility] 1..840.114 350.1.13.10 4.2.7.2.686 [id number] 107 [id number] [facility] 2022-07-21 13:30:00 2022-07-21 14:33:13 Outpatient R ARGELIA TOBIAS [facility] [id number] [facility] 2022-07-21 13:30:00 2022-07-21 14:33:13 Office Visit Argelia Tobias [facility] 1..840.114 350.1.13.10 4.2.7.2.686 [id number] [id number] [facility] 2022-07-21 08:45:00 2022-07-21 10:06:03 Routine Visit Milagros Aden Brenda A [facility] 1.2840.114 350.1.13.10 4.2.7.2.686 [id number] 107 [id number] [facility] 2022-07-20 10:15:00 2022-07-20 10:15:00 Outpatient JANINE URRUTIA [facility] [id number] [facility] 2022-07-14 00:00:00 2022-07-14 00:00:00 Orders Only Doctor Unassigned, [place] [facility] 1.840.114 350.1.13.10 4.2.7.2.686 [id number] [facility] 2022-07-06 10:45:00 2022-07-06 11:25:03 Outpatient JANINE URRUTIA [facility] [id number] [facility] 2022-07-06 10:45:00 2022-07-06 11:25:03 Routine Visit Provider, Abel-Rmchp Janine Kovacs [facility] 1.840.114 350.1.13.10 4.2.7.2.686 [id number] 107 [id number] [facility] 2022 00:00:00 2022 00:00:00 Telephone Milagros Aden [facility] 1.2840.114 350.1.13.10 4.2.7.2.686 [id number] 107 [id number] [facility] 2022-06-26 11:24:00 2022-06-26 13:17:00 Outpatient TONYA LIU [facility] [id number] [facility] 2022-06-26 11:24:00 2022-06-26 13:17:00 Emergency Tonya Hanna [facility] 1.84.114 350.1.13.10 4.2.7.2.686 [id number] [id number] [facility] 2022-06-26 00:00:00 2022-06-26 00:00:00 Telephone Tonya Hanna [facility] 1.2.840.114 350.1.13.10 4.2.7.2.686 [id number] [facility] 2022-06-22 10:45:00 2022-06-22 11:46:17 Outpatient R JANINE DE LA CRUZ [facility] [id number] [facility] 2022-06-22 10:45:00 2022-06-22 11:46:17 Routine Visit Provider, Janine Zaldivar [facility] 1..840.114 350.1.13.10 4.2.7.2.686 [id number] 107 [id number] [facility] 2022-06-22 10:30:00 2022-06-22 10:30:00 Outpatient R [facility] [id number] [facility] 2022-06-08 10:30:00 2022-06-08 11:32:36 Outpatient R JANINE DE LA CRUZ [facility] [id number] [facility] 2022-06-08 10:30:00 2022-06-08 11:32:36 Routine Visit Provider, Janine Zaldivar [facility] 1..840.114 350.1.13.10 4.2.7.2.686 [id number] 107 [id number] [facility] 2022-05-25 15:45:00 2022-05-25 16:39:22 Outpatient R JANINE DE LA CRUZ [facility] [id number] [facility] 2022-05-25 15:45:00 2022-05-25 16:39:22 Routine Visit Provider, Milagros Owusu Brenda A [facility] ..840.114 350.1.13.10 4.2.7.2.686 [id number] 107 [id number] [facility] 2022-05-25 10:15:00 2022-05-25 10:15:00 Outpatient JANINE URRUTIA [facility] [id number] [facility] 2022-05-15 00:00:00 2022-05-15 00:00:00 Telephone Milagros Aden [facility] 1..840.114 350.1.13.10 4.2.7.2.686 [id number] 107 [id number] [facility] 2022-05-11 08:00:00 2022-05-11 09:08:37 Outpatient JANINE URRUTIA [facility] [id number] [facility] 2022-05-11 08:00:00 2022-05-11 09:08:37 Routine Visit Provider, Janine Zaldivar [facility] ..840.114 350.1.13.10 4.2.7.2.686 [id number] 107 [id number] [facility] 2022-05-10 09:00:00 2022-05-10 09:00:00 Outpatient MILAGROS HOWARD [facility] [id number] [facility] 2022-05-09 08:00:00 2022-05-09 08:00:00 Outpatient JANINE URRUTIA [facility] [id number] [facility] 2022-05-05 00:00:00 2022-05-05 00:00:00 Abstract Milagros Aden [facility] 1.0.114 350.1.13.10 4.2.7.2.686 [id number] 107 [id number] [facility] 2022-05-04 13:00:00 2022-05-04 13:45:00 Garbage Worker Visit 3, [facility] Usg Room Minerva Yang [facility] 1.0.114 350.1.13.10 4.2.7.2.686 [id number] [facility] 2022-05-04 13:00:00 2022-05-04 13:00:00 Outpatient P MINERVA YANG [facility] [id number] [facility] 2022-05-03 00:00:00 2022-05-03 00:00:00 Case Management Janine De La Cruz [facility] 1..114 350.1.13.10 4.2.7.2.686 [id number] 107 [id number] [facility] 2022-05-03 00:00:00 2022-05-03 00:00:00 Patient Secure Msg Milagros Aden [facility] 1..114 350.1.13.10 4.2.7.2.686 [id number] 107 [id number] [facility] 2022-04-24 10:00:00 2022-04-24 10:44:25 Outpatient R ROSALEE DICKSON SHANNON [facility] [id number] [facility] 2022-04-24 10:00:00 2022-04-24 10:44:25 Office Visit Faculty, Rosalee Morrison [facility] 1..114 350.1.13.10 4.2.7.2.686 [id number] 107 [id number] [facility] 2022-04-11 11:00:00 2022-04-11 11:33:03 Outpatient R MILAGROS ADEN [facility] [id number] [facility] 2022-04-11 11:00:00 2022-04-11 11:33:03 Routine Visit Milagros Aden [facility] 1..840.114 350.1.13.10 4.2.7.2.686 [id number] 107 [id number] [facility] 2022-03-27 00:00:00 2022-03-27 00:00:00 Abstract Milagros Aden [facility] 1..840.114 350.1.13.10 4.2.7.2.686 [id number] 107 [id number] [facility] 2022-03-23 13:00:00 2022-03-23 14:33:34 Outpatient P ROSALEE DICKSON SHANNON [facility] [id number] [facility] 2022-03-23 13:00:00 2022-03-23 14:00:00 Garbage Worker Visit 1, [facility] Us Room Rosalee Dickson [facility] 1..840.114 350.1.13.10 4.2.7.2.686 [id number] 104 [id number] [facility] 2022-03-14 14:45:00 2022-03-14 15:33:24 Outpatient R MILAGROS ADEN [facility] [id number] [facility] 2022-03-14 14:45:00 2022-03-14 15:33:24 Routine Visit Milagros Aden [facility] 1.2.840.114 350.1.13.10 4.2.7.2.686 [id number] 107 [id number] [facility] 2022-02-14 00:00:00 2022-02-14 00:00:00 Orders Only Doctor Unassigned, [place] [facility] 1.840.114 350.1.13.10 4.2.7.2.686 [id number] [facility] 2022-02-10 11:15:00 2022-02-10 12:02:53 Outpatient R CIARAN MORGAN [facility] [id number] [facility] 2022-02-10 11:15:00 2022-02-10 12:02:53 Telemedici ne Visit Marilin Qureshi Joseph W [facility] 1.840.114 350.1.13.10 4.2.7.2.686 [id number] 107 [id number] [facility] 2022-02-09 00:00:00 2022-02-09 00:00:00 Abstract Milagros Aden [facility] 1..114 350.1.13.10 4.2.7.2.686 [id number] 107 [id number] [facility] 2022-02-06 10:30:00 2022-02-06 10:45:00 Garbage Worker Visit Lab, [facility] Patricia montalvo [facility] 1..114 350.1.13.10 4.2.7.2.686 [id number] [facility] 2022-02-06 09:30:00 2022-02-06 10:41:51 Garbage Worker Visit 1, [facility] Us Room Patricia montalvo [facility] 1..114 350.1.13.10 4.2.7.2.686 [id number] 104 [id number] [facility] 2022-02-06 10:30:00 2022-02-06 10:30:00 Outpatient P ARGELIA CAMPUZANO [facility] [id number] [facility] 2022-02-02 10:45:00 2022-02-02 11:00:00 Routine Visit Milagros Aden [facility] 1.2840.114 350.1.13.10 4.2.7.2.686 [id number] 107 [id number] [facility] 2022-02-02 10:45:00 2022-02-02 10:45:00 Outpatient R MILAGROS ADEN [facility] [id number] [facility] 2022-01-30 10:00:00 2022-01-30 15:49:34 Outpatient R MILAGROS ADEN [facility] [id number] [facility] 2022-01-30 10:00:00 2022-01-30 15:49:34 Telemedici ne Visit Faculty, [facility] Milagros Aden [facility] 1.840.114 350.1.13.10 4.2.7.2.686 [id number] 107 [id number] [facility] 2022-01-20 14:00:00 2022-01-20 15:41:59 Outpatient R ARGELIA TOBIAS [facility] [id number] [facility] 2022-01-20 14:00:00 2022-01-20 15:41:59 [facility] 1.0.114 350.1.13.10 4.2.7.2.686 [id number] [facility] 2022-01-19 00:00:00 2022-01-19 00:00:00 Patient Secure Msg Milagros Aden [facility] 1.2840.114 350.1.13.10 4.2.7.2.686 [id number] 107 [id number] [facility] 2022-01-17 08:15:00 2022-01-17 08:35:51 Garbage Worker Visit Lab, Ang-Rmchp Milagros Aden [facility] 1.0.114 350.1.13.10 4.2.7.2.686 [id number] 107 [id number] [facility] 2022-01-17 08:15:00 2022-01-17 08:15:00 Outpatient R MILAGROS ADEN [facility] [id number] [facility] 2022-01-13 00:00:00 2022-01-13 00:00:00 Telephone Milagros Aden [facility] 1.0.114 350.1.13.10 4.2.7.2.686 [id number] 107 [id number] [facility] 2022-01-12 10:00:00 2022-01-12 11:44:10 Outpatient R MILAGROS ADEN [facility] [id number] [facility] 2022-01-12 10:00:00 2022-01-12 11:44:10 Initial Visit Milagros Aden [facility] 1.0.114 350.1.13.10 4.2.7.2.686 [id number] 107 [id number] [facility] 2022-01-12 00:00:00 2022-01-12 00:00:00 Orders Only Doctor Unassigned, [place] [facility] 1..114 350.1.13.10 4.2.7.2.686 [id number] [facility] 2021-11-18 00:00:00 2021-11-18 00:00:00 [facility] 1..114 350.1.13.10 4.2.7.2.686 [id number] [id number] [facility] 2021-11-08 00:00:00 2021-11-08 00:00:00 Telephone [facility] 1.2.840.114 350.1.13.10 4.2.7.2.686 [id number] [facility] 2021-11-06 13:32:32 2021-11-06 23:59:00 Hospital Encounter [facility] ([facility]) 1.2.840.114 350.1.13.10 4.2.7.2.686 [id number] [facility] 2021-11-06 13:32:19 2021-11-06 23:59:00 Hospital Encounter [facility] ([facility]) 1.2.840.114 350.1.13.10 4.2.7.2.686 [id number] [facility] 2021-11-06 13:30:00 2021-11-06 13:31:00 [id number] 2021-11-06 13:30:00 2021-11-06 13:31:00 Hospital Encounter [facility] ([facility]) 1.2.840.114 350.1.13.10 4.2.7.2.686 [id number] [facility] 2021-10-19 00:00:00 2021-10-19 00:00:00 Telephone [facility] 1.2.840.114 350.1.13.10 4.2.7.2.686 [id number] [facility] 2021-10-14 15:45:00 2021-10-14 16:00:00 Garbage Worker Visit [facility] 1.2.840.114 350.1.13.10 4.2.7.2.686 [id number] [facility] 2021-10-14 14:00:00 2021-10-14 15:00:00 Office Visit Argelia Tobias [facility] 1..114 350.1.13.10 4.2.7.2.686 [id number] [facility] 2021-10-14 14:00:00 2021-10-14 14:00:00 Outpatient R [facility] [id number] [facility] 2021-10-14 14:00:00 2021-10-14 14:00:00 Outpatient R SIMÓN [facility] [id number] [facility] 2021-07-02 00:00:00 2021-07-02 00:00:00 Refill Milagros Aden [facility] 1..114 350.1.13.10 4.2.7.2.686 [id number] 107 [id number] [facility] 2021-01-21 16:20:00 2021-01-21 16:20:00 Outpatient R [facility] [id number] [facility] 2021-01-21 15:30:02 2021-01-21 15:59:36 Urgent Care Ansley Urias, [facility] 1.84.114 350.1.13.10 4.2.7.2.686 [id number] [facility] 2020-11-11 00:00:00 2020-11-11 00:00:00 Orders Only Doctor Unassigned, [place] [facility] 1.84.114 350.1.13.10 4.2.7.2.686 [id number] [facility] 2020-10-20 10:12:28 2020-10-20 10:44:37 Office Visit Milagros Aden [facility] 1..114 350.1.13.10 4.2.7.2.686 [id number] 107 [id number] [facility] 2020-10-20 09:30:00 2020-10-20 09:30:00 Outpatient R MILAGROS ADEN [facility] [id number] [facility] 2020-10-20 00:00:00 2020-10-20 00:00:00 Orders Only Doctor Unassigned, [place] [facility] 1..114 350.1.13.10 4.2.7.2.686 [id number] [facility] 2020-10-06 09:30:00 2020-10-06 09:30:00 Outpatient R [facility] [id number] [facility] 2020-10-04 00:00:00 2020-10-04 00:00:00 Transition of Care [facility] 1..114 350.1.13.10 4.2.7.2.686 [id number] [facility] 2020-09-29 12:56:00 2020-10-02 16:14:00 Hospital Encounter Meng Bass Xiang [facility] 1..114 350.1.13.10 4.2.7.2.686 [id number] [facility] 2020-07-06 10:20:14 2020-07-06 11:01:08 Office Visit Oliva Amador [facility] 1..114 350.1.13.10 4.2.7.2.686 [id number] 107 [id number] [facility] 2020-07-06 10:15:00 2020-07-06 10:15:00 Outpatient OLIVA REYNOLDS [facility] [id number] [facility] 2020-06-15 12:46:49 2020-06-15 13:13:21 Routine Visit Oliva Amador [facility] 1..114 350.1.13.10 4.2.7.2.686 [id number] 107 [id number] [facility] 2020-06-15 12:45:00 2020-06-15 12:45:00 Outpatient OLIVA REYNOLDS [facility] [id number] [facility] 2020-06-14 14:30:00 2020-06-14 14:30:00 [facility] [id number] [facility] 2020-05-20 13:18:07 2020-05-20 13:55:34 Nurse Visit Visit, Ang-Rmchp Nurse Milagros Aden [facility] 1.114 350.1.13.10 4.2.7.2.686 [id number] 107 [id number] [facility] 2020-05-20 13:00:00 2020-05-20 13:00:00 Outpatient MILAGROS HOWARD [facility] [id number] [facility] 2020-05-13 06:27:00 2020-05-15 12:41:00 Hospital Encounter Rosalee Dickson Hassan [facility] 1.114 350.1.13.10 4.2.7.2.686 [id number] [facility] 2020-05-13 00:00:00 2020-05-13 00:00:00 Orders Only Doctor Unassigned, [place] [facility] 1..114 350.1.13.10 4.2.7.2.686 [id number] [facility] 2020-05-11 15:00:00 2020-05-11 15:00:00 Outpatient OLIVA REYNOLDS [facility] [id number] [facility] 2020-05-05 13:14:29 2020-05-05 13:55:48 Routine Visit Yael Amadormalachi Casiano [facility] 1..840.114 350.1.13.10 4.2.7.2.686 [id number] 107 [id number] [facility] 2020-05-05 13:00:00 2020-05-05 13:00:00 Outpatient R OLIVA AMADOR [facility] [id number] [facility] 2020-04-30 06:19:00 2020-04-30 12:58:00 Hospital Encounter Argelia Campuzano [facility] 1..840.114 350.1.13.10 4.2.7.2.686 [id number] [facility] 2020-04-29 00:00:00 2020-04-29 00:00:00 Telephone Cande Amadorstar Casiano [facility] 1..840.114 350.1.13.10 4.2.7.2.686 [id number] 107 [id number] [facility] 2020-04-29 00:00:00 2020-04-29 00:00:00 Telephone Cande Amadorstar Casiano [facility] ..840.114 350.1.13.10 4.2.7.2.686 [id number] 107 [id number] [facility] 2020-04-28 12:50:46 2020-04-28 13:05:46 Routine Visit Mikel Oliva Casiano [facility] 1.284.114 350.1.13.10 4.2.7.2.686 [id number] 107 [id number] [facility] 2020-04-28 12:45:00 2020-04-28 12:45:00 Outpatient OLIVA REYNOLDS [facility] [id number] [facility] 2020-04-25 00:00:00 2020-04-25 00:00:00 Refill Emerson Amadorpayton [facility] 1.2840.114 350.1.13.10 4.2.7.2.686 [id number] 107 [id number] [facility] 2020-04-13 13:52:35 2020-04-13 14:22:34 Routine Visit Cande Amadorstar [facility] 1.840.114 350.1.13.10 4.2.7.2.686 [id number] 107 [id number] [facility] 2020-04-13 13:45:00 2020-04-13 13:45:00 Outpatient OLIVA REYNOLDS [facility] [id number] [facility] 2020-03-31 11:10:22 2020-03-31 11:30:54 Routine Visit Emerson Amadorpayton [facility] 1.2840.114 350.1.13.10 4.2.7.2.686 [id number] 107 [id number] [facility] 2020-03-31 11:00:00 2020-03-31 11:00:00 Outpatient OLIVA REYNOLDS [facility] [id number] [facility] 2020-03-16 11:04:40 2020-03-16 11:19:40 Routine Visit Emerson Amadorpayton [facility] 1.2840.114 350.1.13.10 4.2.7.2.686 [id number] 107 [id number] [facility] 2020-03-16 10:45:00 2020-03-16 10:45:00 Outpatient OLIVA REYNOLDS [facility] [id number] [facility] 2020-03-02 10:45:00 2020-03-02 10:45:00 Outpatient R OLIVA AMADOR [facility] [id number] [facility] 2020-03-02 08:37:04 2020-03-02 09:25:20 Routine Visit Oliva Amador [facility] [id number] 350.1.13.10 4.2.7.2.686 [id number] 107 [id number] [facility] 2020-03-02 08:30:00 2020-03-02 08:30:00 Outpatient R OLIVA AMADOR [facility] [id number] [facility] 2020-02-10 08:14:53 2020-02-10 08:56:05 Routine Visit Oliva Amador [facility] [id number] 350.1.13.10 4.2.7.2.686 [id number] [facility] 2020-02-10 07:45:00 2020-02-10 07:45:00 Outpatient OLIVA REYNOLDS [facility] [id number] [facility] 2020-02-03 00:00:00 2020-02-03 00:00:00 Abstract Oliva Amador [facility] [id number] 350.1.13.10 4.2.7.2.686 [id number] [facility] 2020-02-02 10:06:53 2020-02-02 10:58:51 Garbage Worker Visit Ultrasound, Susanne Aguilera [facility] 1.2840.114 350.1.13.10 4.2.7.2.686 [id number] [facility] 2020-02-02 10:00:00 2020-02-02 10:00:00 Outpatient P [facility] [id number] [facility] 2020-01-20 09:48:05 2020-01-20 10:33:57 Routine Visit Yael Amadormalachi [facility] 1.0.114 350.1.13.10 4.2.7.2.686 [id number] [facility] 2020-01-20 09:45:00 2020-01-20 09:45:00 Outpatient R YAEL AMADORMALACHI [facility] [id number] [facility] 2020-01-06 00:00:00 2020-01-06 00:00:00 Abstract Yael Amadormalachi [facility] 1.0.114 350.1.13.10 4.2.7.2.686 [id number] [facility] 2020-01-05 08:09:49 2020-01-05 09:24:49 Garbage Worker Visit Ultrasound, Abraham Reid [facility] 1..114 350.1.13.10 4.2.7.2.686 [id number] [facility] 2020-01-05 08:00:00 2020-01-05 08:00:00 Outpatient R [facility] [id number] [facility] 2019-12-23 10:46:51 2019-12-23 11:21:20 Routine Visit Yael Amadormalachi [facility] 1.20.114 350.1.13.10 4.2.7.2.686 [id number] [facility] 2019-12-23 10:45:00 2019-12-23 10:45:00 Outpatient R OLIVA AMADOR [facility] [id number] [facility] 2019-11-25 10:47:16 2019-11-25 11:02:16 Routine Visit Oliva Amador [facility] 1..840.114 350.1.13.10 4.2.7.2.686 [id number] 107 [id number] [facility] 2019-11-25 10:45:00 2019-11-25 10:45:00 Outpatient R OLIVA AMADOR [facility] [id number] [facility] 2019-10-30 08:00:54 2019-10-30 08:30:54 Garbage Worker Visit Ultrasound, Remedios Enriquez [facility] 1..840.114 350.1.13.10 4.2.7.2.686 [id number] [facility] 2019-10-30 08:00:00 2019-10-30 08:00:00 Outpatient P [facility] [id number] [facility] 2019-10-30 00:00:00 2019-10-30 00:00:00 Abstract Yael Amadormalachi [facility] 1..840.114 350.1.13.10 4.2.7.2.686 [id number] 107 [id number] [facility] 2019-10-30 00:00:00 2019-10-30 00:00:00 Abstract Emerson Amadorpayton [facility] 1..840.114 350.1.13.10 4.2.7.2.686 [id number] 107 [id number] [facility] 2019-10-28 15:19:44 2019-10-28 16:04:58 Routine Visit Oliva Amador [facility] 1.2.840.114 350.1.13.10 4.2.7.2.686 [id number] 107 [id number] [facility] 2019-10-28 15:15:00 2019-10-28 15:15:00 Outpatient R CANDE AMADORSTAR [facility] [id number] [facility] 2019-10-23 00:00:00 2019-10-23 00:00:00 Telephone Oliva Amador [facility] 1.2.840.114 350.1.13.10 4.2.7.2.686 [id number] 107 [id number] [facility] 2019-10-21 22:00:42 2019-10-22 01:17:00 Emergency China Kaye [facility] 1.2840.114 350.1.13.10 4.2.7.2.686 [id number] [facility] 2019-10-21 00:00:00 2019-10-21 00:00:00 Telephone Oliva Amador [facility] 1.2.840.114 350.1.13.10 4.2.7.2.686 [id number] 107 [id number] [facility] 2019-10-21 00:00:00 2019-10-21 00:00:00 Orders Only Doctor Unassigned, [place] [facility] 1.2.840.114 350.1.13.10 4.2.7.2.686 [id number] [facility] 2019-09-23 07:55:14 2019-09-23 08:04:50 Garbage Worker Visit Lab, Ang-Rmchp Milagros Aden [facility] 1.2.840.114 350.1.13.10 4.2.7.2.686 [id number] 107 [id number] [facility] 2019-09-23 07:45:00 2019-09-23 07:45:00 Outpatient MILAGROS HOWARD [facility] [id number] [facility] 2019-09-23 00:00:00 2019-09-23 00:00:00 Telephone Oliva Amador [facility] 1..114 350.1.13.10 4.2.7.2.686 [id number] [facility] 2019-09-18 08:20:01 2019-09-18 09:46:01 Initial Visit Oliva Amador [facility] 1..114 350.1.13.10 4.2.7.2.686 [id number] [facility] 2019-09-18 08:00:00 2019-09-18 08:00:00 Outpatient R AMADOROLIVA [facility] [id number] [facility] 2019-09-18 00:00:00 2019-09-18 00:00:00 Orders Only Doctor Unassigned, [place] [facility] 1.114 350.1.13.10 4.2.7.2.686 [id number] [facility] 2019-09-18 00:00:00 2019-09-18 00:00:00 Telephone MikelOliva [facility] 1..114 350.1.13.10 4.2.7.2.686 [id number] 107 [id number] [facility] 2018-12-29 00:00:00 2018-12-29 00:00:00 Refill Milagros Aden [facility] 1.2.840.114 350.1.13.10 4.2.7.2.686 [id number] [facility] 2018-12-12 00:00:00 2018-12-12 00:00:00 Telephone Milagros Aden [facility] 1.2.840.114 350.1.13.10 4.2.7.2.686 [id number] 107 [id number] [facility] 2018-12-06 00:00:00 2018-12-06 00:00:00 Telephone Milagros Aden [facility] 1.2.840.114 350.1.13.10 4.2.7.2.686 [id number] [facility] 2018-12-04 09:50:37 2018-12-04 10:40:53 Office Visit Milagros Aden [facility] 1.2.840.114 350.1.13.10 4.2.7.2.686 [id number] 107 [id number] [facility] 2018-12-04 00:00:00 2018-12-04 00:00:00 Orders Only Doctor Unassigned, [place] [facility] 1.2.840.114 350.1.13.10 4.2.7.2.686 [id number] [facility] 2018-11-21 00:00:00 2018-11-21 00:00:00 Telephone Milagros Aden [facility] 1.2.840.114 350.1.13.10 4.2.7.2.686 [id number] 107 [id number] [facility] 2018-11-19 08:35:51 2018-11-19 09:45:21 Office Visit Milagros Aden [facility] 1.2.840.114 350.1.13.10 4.2.7.2.686 [id number] [facility] 2018-11-08 00:00:00 2018-11-08 00:00:00 Daniel Flores [facility] 1.2.840.114 350.1.13.10 4.2.7.2.686 [id number] 107 [id number] [facility] 2018-10-28 08:15:00 2018-10-28 09:20:58 Outpatient R WILLIAM ADENOLA [facility] [id number] [facility] Results Test Description Test Time Test Comments Results Result Co mments Source Clint Adamson AustinBV/VAGINITIS PANEL DNA [id number] 00:00:00* Test Item Value Reference Range Interpretation Comme nts TRICHOMONAS: (test code = 6568-0) NOT DETECTED GARDNERELLA: (test code = 6410-5) DETECTED HENRI: (test code = 55208-8) NOT DETECTED Clint De LeonHSV 1/2 IGG,TYPE SPECIFIC [id number] 00:00:00* Test Item Value Reference Range Interpretation Comme nts HSV 1 IGG, TYPE SPECIFIC AB (test code = 5206-8) 20.90 index HSV 2 IGG, TYPE SPECIFIC AB (test code = 5209-2) 5.18 index Clint Adamson AustinHSV 1/2 IGG,TYPE SPECIFIC [id number] 00:00:00* Test Item Value Reference Range Interpretation Comme nts HSV 1 IGG, TYPE SPECIFIC AB (test code = 5206-8) 20.90 index HSV 2 IGG, TYPE SPECIFIC AB (test code = 5209-2) 5.18 index Clint Adamson AustinCHLAMYDIA/N. GONORRHOEAE RNA, [id number] 00:00:00* Test Item Value Reference Range Interpretation Comme nts CHLAMYDIA TRACHOMATIS RNA, T MA, UROGENITAL (test code = 74067-7) NOT DETECTED NEISSERIA GONORRHOEAE RNA, T MA, UROGENITAL (test code = 48088-8) NOT DETECTED Clint De LeonSURESWAB(R) TRICHOMONAS VAGINALIS RNA, QL, [id number] 00:00:00* Test Item Value Reference Range Interpretation Comme nts TRICHOMONAS VAGINALIS RNA, Q L TMA (test code = 44860-0) NOT DETECTED Clint Adamson AustinRPR (MONITOR) W/REFL [id number] 00:00:00* Test Item Value Reference Range Interpretation Comme nts RPR (MONITOR) W/REFL TITER ( test code = 35360-0) NON-REACTIVE Clint F AustinHIV 1/2 ANTIGEN/ANTIBODY,FOURTH GENERATION [id number] 00:00:00* Test Item Value Reference Range Interpretation Comme nts HIV AG/AB, 4TH GEN (test cod e = 53990-8) NON-REACTIVE Clint F AustinCHLAMYDIA/N. GONORRHOEAE RNA, [id number] 00:00:00* Test Item Value Reference Range Interpretation Comme nts CHLAMYDIA TRACHOMATIS RNA, T MA, UROGENITAL (test code = 60989-3) NOT DETECTED NEISSERIA GONORRHOEAE RNA, T MA, UROGENITAL (test code = 86670-0) NOT DETECTED Clint De LeonSURESWAB(R) TRICHOMONAS VAGINALIS RNA, QL, [id number] 00:00:00* Test Item Value Reference Range Interpretation Comme nts TRICHOMONAS VAGINALIS RNA, Q L TMA (test code = 82196-4) NOT DETECTED Clint Adamson AustinRPR (MONITOR) W/REFL [id number] 00:00:00* Test Item Value Reference Range Interpretation Comme nts RPR (MONITOR) W/REFL TITER ( test code = 24716-0) NON-REACTIVE Clint F AustinHIV 1/2 ANTIGEN/ANTIBODY,FOURTH GENERATION [id number] 00:00:00* Test Item Value Reference Range Interpretation Comme nts HIV AG/AB, 4TH GEN (test cod e = 49445-9) NON-REACTIVE Clint Adamson AustinMR THORACIC SPINE W WO [id number] 20:13:48EXAM: MR THORACIC SPINE W WO CONTRAST HISTORY: MS monitoring TECHNIQUE: MRI of the thoracic spine was performed on 1.5 Davida before andafter intravenous administration. COMPARISON: 11/02/2021. FINDINGS: Normal thoracic kyphosis. The vertebral bodies are normal in height andalignment. Intraosseous hemangioma of T5 vertebral body. The background bone marrowsignal is unremarkable. Patchy T2/STIR hyperintense lesions in the T1, T2 and T3, T8-T9 and N34-E85cnsciaie are redemonstrated and grossly similar to the comparison is scan.No new lesions or abnormal enhancement identified. Thoracic discs are normal in height and signal intensity. No posterior discherniation, high-grade spinal canal stenosisor significant neuralforaminal narrowing. The paraspinal soft tissues are unremarkable. [facility] hospitalMR CERVICAL SPINE W WO [id number] 20:44:34MR CERVICAL SPINE W WO CONTRAST, MR BRAIN W WO CONTRAST WITH NEUROQUANT HISTORY: Female 33 years MSmonitoring Domenica Hendrix is a 33 yearold female with MS, and last MRI was more than 2-years ago. Not on MS DMT. COMPARISON: MRI brain and cervical spine dated 11/06/2021 TECHNIQUE: Multiple interval T2-weighted imaging of the brain and cervicalspine was obtained before and following the administration of 15 mL IVProHance Quantitative volumetry of the brain was performed using NeuroQuant([employer] [place], [place]) software package. The NeuroQuantanalysis was based on a sagittal 3D volumetric MPRAGE pulse sequence.Sequence-checking was performed to ensure appropriate high-resolution imageparameters. Correction for field/gradient inhomogeneities, removal of theoverlying calvaria, alignment to the probabilistic atlas of stereotypicalanatomy and segmented volumetry of predetermined anatomic areas derivedfrom multiple subjects of multiple age groups was performed. FINDINGS: MRI brain: The ventricles and cerebral sulci are normal in caliber and configuration.No hydrocephalus, midline shift or pathological extra-axial fluidcollection is present. The basal cisterns are unr emarkable. No restricted diffusion is present to suggest acute-subacute ischemia.Numerous foci of hyperintense T2/FLAIR signal in the periventricular anddeep white matter, oriented perpendicular to the orientation of the lateralventricles, corpus callosum, brain stem and cerebellum are grosslyunchan ged in number and distribution from the prior MRI aligned for thedifference in technique. No focus of abnormal parenchymal gradient bloomingis present. Multiple lesions demonstrate T1 hypointensity. No enhancing focus is present to suggest active disease. A multistructure atrophy report was generated. The report demonstrateswhole brain, thalamic, hippocampal and cerebral white matter volumes to begreater than 2 standard deviations below the mean for age-matched controls. No abnormal fluid signal is present in the mastoid air cells. Smallretention cysts are noted in the maxillary sinuses. The T2 flow voids forthe major intracranial vessels are unremarkable. MRI cervical spine: Straightening of the normal cervical lordosis. The vertebral bodies arenormal in height and in normal alignment. The cervical cord is normal incaliber. Patchy hyperintense T2/FLAIR signal foci throughout the cervicalcord, notably at the levels of C2-C3, C4-C5 and C7 are grossly unchanged.No focus of abnormal cord enhancement is present. The background marrow signal is unremarkable. The intervertebral discheights are preserved. No significant degenerative changes are present. No spinal canal stenosis or neuralforaminal narrowing is present at anylevel.[facility]AST WITH [id number] 20:44:34MR CERVICAL SPINE W WO CONTRAST, MR BRAIN W WO CONTRAST WITH NEUROQUANT HISTORY: Female 33 years MSmonitoring Domenica Hendrix is a 33 yearold female with MS, and last MRI was more than 2-years ago. Not on MS DMT. COMPARISON: MRI brain and cervical spine dated 11/06/2021 TECHNIQUE: Multiple interval T2-weighted imaging of the brain and cervicalspine was obtained before and following the administration of 15 mL IVProHance Quantitative volumetry of the brain was performed using NeuroQuant([employer] [place], [place]) software package. The NeuroQuantanalysis was based on a sagittal 3D volumetric MPRAGE pulse sequence.Sequence-checking was performed to ensure appropriate high-resolution imageparameters. Correction for field/gradient inhomogeneities, removal of theoverlying calvaria, alignment to the probabilistic atlas of stereotypicalanatomy and segmented volumetry of predetermined anatomic areas derivedfrom multiple subjects of multiple age groups was performed. FINDINGS: MRI brain: The ventricles and cerebral sulci are normal in caliber and configuration.No hydrocephalus, midline shift or pathological extra-axial fluidcollection is present. The basal cisterns are unr emarkable. No restricted diffusion is present to suggest acute-subacute ischemia.Numerous foci of hyperintense T2/FLAIR signal in the periventricular anddeep white matter, oriented perpendicular to the orientation of the lateralventricles, corpus callosum, brain stem and cerebellum are grosslyunchan ged in number and distribution from the prior MRI aligned for thedifference in technique. No focus of abnormal parenchymal gradient bloomingis present. Multiple lesions demonstrate T1 hypointensity. No enhancing focus is present to suggest active disease. A multistructure atrophy report was generated. The report demonstrateswhole brain, thalamic, hippocampal and cerebral white matter volumes to begreater than 2 standard deviations below the mean for age-matched controls. No abnormal fluid signal is present in the mastoid air cells. Smallretention cysts are noted in the maxillary sinuses. The T2 flow voids forthe major intracranial vessels are unremarkable. MRI cervical spine: Straightening of the normal cervical lordosis. The vertebral bodies arenormal in height and in normal alignment. The cervical cord is normal incaliber. Patchy hyperintense T2/FLAIR signal foci throughout the cervicalcord, notably at the levels of C2-C3, C4-C5 and C7 are grossly unchanged.No focus of abnormal cord enhancement is present. The background marrow signal is unremarkable. The intervertebral discheights are preserved. No significant degenerative changes are present. No spinal canal stenosis or neuralforaminal narrowing is present at anylevel.[facility] GLUCOSE (AUTOMATED)2023-10-28 13:41:40* Test Item Value Reference Range Interpretation Comme nts POCT GLU (test code = 2555624333) 139 mg/dL 70-110 H Lab Interpretation (test cod e = 58170-7) Abnormal [facility] [id number] 20:15:00* Test Item Value Reference Range Interpretation Comme nts POCT PREG (test code = 1605) Negative On board controls acceptable with C Line (test code = 3574) Yes POCT PREG LOT # (test code = 3575) POCT PREG TEST DATE ( test code = 3576) Lab Interpretation (test cod e = 68861-3) Normal [facility]burgGAL ONLY - SYPHILIS [id number] 15:01:28* Test Item Value Reference Range Interpretation Comme nts Syphilis IgG/IgM (test code = 63396-9) Non-reactive Non-reactive ANIBAL (test code = ANIBAL) Non-reactive - No serologic evidence of T. pallidum infection. Cannot exclude incubating or early syphilis. Submit a second specimen in 2-4 weeks if syphilis is clinically suspected. Equivocal - Further testing to follow. Reactive - Further testing to follow. Lab Interpretation (test code = 97233-5) Normal [facility] EdinburgRHO (D) IMMUNE [id number] 10:57:10* Test Item Value Reference Range Interpretation Comme nts RHIG CANDIDATE? (test code = 5188) No- see comment Patient is not a candidate for RhIg- Patient is Rh Positive.Performed at [facility] Laboratory Services - [facility] Blood [address] [address]: [phone] No. [id number] [facility] EdinburgHIV 1/2 AG-AB WITH [id number] 09:53:39* Test Item Value Reference Range Interpretation Comme nts HIV Semi-quantitative (test code = 14662-5) 0.09 Negative ANIBAL (test code = ANIBAL) Non-reactive for HIV-1 antigen and HIV-1/HIV-2 antibodies. ?No laboratory evidence of HIV infection. ?Repeat in 2-4 weeks if acute HIV infection is suspected. [facility] EdinburgVenous Cord [id number] 07:57:07* Test Item Value Reference Range Interpretation Comme nts VENOUS BASE EXCESS, CORD (te st code = 9448227397) 1.0 mEq/L VENOUS PH, CORD (test code = 4544128175) 7.39 7.25-7.45 VENOUS PC02, CORD (test code = 4421002482) 45 27-49 VENOUS PO2, CORD (test code = 4540004142) 36 17-41 VENOUS BICARBONATE, CORD (te st code = 9329297415) 26 12-29 [facility] EdinburgHepatitis B Surface [id number] 07:17:45 * Test Item Value Reference Range Interpretation Comme nts HBsAg Semi-Quantitative (maxwell t code = 5195-3) 0.10 Negative [facility] EdinburgPANEL [id number] 07:03:00 ANTIBODY FLUzpz-ToqIfhl-g [facility]UnSt[facility] HospitalCentral Neuraxial [id number] 05:05:00Maryam Beard MD ? ? 09/12/2023 ?2:12 AM Central Neuraxial Block Date/Time: 09/12/2023 12:05 AM Performed by: Maryam Beard, MDAuthorized by: Larry Blum MD ?End Time: 09/12/2023 12:45 AMReason for Block: Labor analgesia, OB request and Patient requestStaff: ?Anesthesiologist: Larry Blum MD ?Resident/ANGER CONTROL COUNSELOR: Maryam Beard MD ?Performed by: resident/CRNAPreanesthetic Checklist: patient identified, IV checked, risks and benefits explained, monitors and equipment checked, timeout performed, pre-op evaluation, surgical consent, site marked, ob/surgical consent approval, ob/surgicalconsent verified and anesthesia consentProcedure: ?Type of Neuraxial: Epidural ?Epidural Description: 1st attempt ? Sterility Prep cap, drape, gloves, hand hygiene and mask ? ?Sedation Level no sedation ?Patient Position: sitting ?Prep: Betadine ? ?Monitoring: continuous pulse ox, heart rate / toco and NIBP ?Location: lumbar (1-5) ?Lumbar: L4-L5 ?Approach: midline ? ?Technique: SHARI saline ?Guidance with: landmark technique}Epidural/Spinal Nathrop and/or Catheter: ?Epidural/Spinal Kit: BBraun ?Needle Type: Tuohy ?Needle Gauge: 17 G ?Needle Length: 3.5 in (8.89 cm) ?Needle Insertion Depth: 4 ?Catheter Type: multiport ? ?Catheter Size: 19 G ? ?Catheter at Skin Depth: 9 ?Number of Attempts: 2 ?Test Dose: lidocaine 1.5% with epinephrine 1-to-200,000 and negative ? ?Dose: 5 cc ? ?CatheterSecurement Method: clear occlusive dressing and liquid medical adhesiveAssessment: ?Block Outcome: a full evaluation is pending and patient tolerated procedure well ? ?Procedure Assessment: patient tolerated procedure well with no complicationsNotes: ? Timeout performed.Patient prepped with betadine x3 and draped. Local anesthetic infiltrated in skin. Needle inserted to depth of 4cm, attempt x2 (initial attempt patient felt catheter was left sided and desired replacement), negative aspiration x3, test dose given and negative, catheter secured at 9cm, patient laid down and remained HDS. There was no dural puncture.PCEA pump and button explained, fall precautions given. Settings: 10ml/hr and bolus of 4mL given. Level to be assessed.[facility]burg[facility]ur[facility] 2023-09-12 05:05:00Maryam Beard MD ? ? 09/12/2023 ?2:12 AM Central Neuraxial Block Date/Time: 09/12/2023 12:05 AM Performed by: Maryam Beard MDAuthorized by: Larry Blum MD ?End Time: 09/12/2023 12:45 AMReason for Block: Labor analgesia, OB request and Patient requestStaff: ?Anesthesiologist: Larry Blum MD ?Resident/ANGER CONTROL COUNSELOR: Maryam Beard MD ?Performed by: resident/CRNAPreanesthetic Checklist: patient identified, IV checked, risks and benefits explained, monitors and equipment checked, timeout performed, pre-op evaluation, surgical consent, site marked, ob/surgical consent approval, ob/surgicalconsent verified and anesthesia consentProcedure: ?Type of Neuraxial: Epidural ?Epidural Description: 1st attempt ? Sterility Prep cap, drape, gloves, hand hygiene and mask ? ?Sedation Level no sedation ?Patient Position: sitting ?Prep: Betadine ? ?Monitoring: continuous pulse ox, heart rate/ toco and NIBP ?Location: lumbar (1-5) ?Lumbar: L4-L5 ?Approach: midline ? ?Technique: SHARI saline ?Guidance with: landmark technique}Epidural/Spinal Nathrop and/or Catheter: ?Epidural/Spinal Kit: BBun ?Needle Type: Tuohy ?Needle Gauge: 17 G ?Needle Length: 3.5 in (8.89 cm) ?Needle Insertion Depth: 4 ?Catheter Type: multiport ? ?Catheter Size: 19 G ? ?Catheter at Skin Depth: 9 ?Number of Attempts: 2 ?Test Dose: lidocaine 1.5% with epinephrine 1-to-200,000 and negative ? ?Dose: 5 cc ? ?Catheter Securement Method: clear occlusive dressing and liquid medical adhesiveAssessment: ?Block Outcome:a full evaluation is pending and patient tolerated procedure well ? ?Procedure Assessment: patient tolerated procedure well with no complicationsNotes: ? Timeout performed.Patient prepped with betadine x3 and draped. Local anesthetic infiltrated in skin. Needle inserted to depth of 4cm, attempt x2 (initial attempt patient felt catheter was left sided and desired replacement), negative aspiration x3, test dose given and negative, catheter secured at 9cm, patient laid down and remained HDS. Therewas no dural puncture.PCEA pump and button explained, fall precautions given. Settings: 10ml/hr andbolus of 4mL given. Level to be assessed.[facility] EdinburgCB with Differential 2023-09-12 04:58:56* Test Item Value Reference Range Interpretation Comme nts WBC (test code = 6690-2) 9.68 4.30-11.10 RBC (test code = 789-8) 4.18 3.93-5.25 HGB (test code = 718-7) 10.7 g/dL 11.6-15.0 L HCT (test code = 4544-3) 34.8 % 35.7-45.2 L MCV (test code = 787-2) 83.3 fL 80.6-95.5 MCH (test code = 785-6) 25.6 pg 25.9-32.8 L MCHC (test code = 786-4) 30.7 g/dL 31.6-35.1 L RDW-SD (test code = 18787-7) 47.0 fL 39.0-49.9 RDW-CV (test code = 788-0) 15.9 % 12.0-15.5 H PLT (test code = 777-3) 226 166-358 MPV (test code = 05989-8) 12.0 fL 9.5-12.9 NRBC/100 WBC (test code = 4777760540) 0.0 0.0-10.0 NRBC x10^3 (test code = 1965128291) See_Comment [Automated messa ge] The system which generated this result transmitted reference range: 10*3/?L. The reference range was not used to interpret this result as normal/abnormal. GRAN MAT (NEUT) % (test code = 770-8) 78.7 % IMM GRAN % (test code = 3514576159) 0.40 % LYMPH % (test code = 736-9) 13.0 % MONO % (test code = 5905-5) 7.3 % EOS % (test code = 713-8) 0.5 % BASO % (test code = 706-2) 0.1 % GRAN MAT x10^3(ANC) (test code = 4810657955) 7.61 10*3/uL 1.88-7.09 H IMM GRAN x10^3 (test code = 2413222903) 0.04 10*3/uL 0.00-0.06 LYMPH x10^3 (test code = 731-0) 1.26 10*3/uL 1.32-3.29 L MONO x10^3 (test code = 742-7) 0.71 10*3/uL 0.33-0.92 EOS x10^3 (test code = 711-2) 0.05 10*3/uL 0.03-0.39 BASO x10^3 (test code = 704-7) 0.01-0.07 Lab Interpretation (test code = 20201-1) Abnormal [facility] EdinburgType and Screen - ONCE [id number] 04:50:00 * Test Item Value Reference Range Interpretation Comme nts ABO & RH (test code = 20) O POSITIVE IAT (test code = 1185) Positive [facility] EdinburgPOCT Urinalysis w/o Specific [id number] 20:59:00* Test Item Value Reference Range Interpretation Comme nts POCT PH U (test code = 3254) . 5-8 POCT U LEUK EST (test code = 3263) Trace Negative - Negative POCT U NIT (test code = 3262) Negative Negative - Negati ve POCT U PROT (test code = 3259) 30 Negative - Negat berenice POCT U GLU (test code = 3256) Negative Negative - Negati ve POCT U KETONE (test code = 3258) Negative Negative - Neg ative POCT U BLD (test code = 3257) Negative Negative - Negati ve Lab Interpretation (test cod e = 81969-1) Abnormal [facility] [id number] 23:04:45 ANTIBODY FSGsvw-OxbQedc-k [facility] EAKQYKVEEPQEFS4331-58-72 23:04:45ANTIBODY SCKxgk-SzyYkmj-f LABSouth [facility] Health System EdinburgAntibody Titer Dhgcmwg6532-58-84 22:54:10* Test Item Value Reference Range Interpretation Comme nts TITERED AB (test code = 1141) Ab Titered: s Performed at [facility] Laboratory Services - [place] [address]Toll Free: [phone] No. [id number] AB TITER (test code = 247) Antibody Titer: <1 Performed at [facility] Laboratory Services - [place] [address]Toll Free: [phone] No. [id number] [facility] BranchAnt[facility] Titer Yhdmnjp5533-45-57 22:54:10* Test Item Value Reference Range Interpretation Comme nts TITERED AB (test code = 1141) Ab Titered: s Performed at [facility] Laboratory Services - [address] Free: [phone] No. [id number] AB TITER (test code = 247) Antibody Titer: <1 Performed at [facility] Laboratory Services - [place] [address]Toll Free: [phone] No. [id number] [facility] EdinburgAntibody Titer Tcjbxrp9271-74-30 22:54:08* Test Item Value Reference Range Interpretation Comme nts TITERED AB (test code = 1141) Ab Titered: Jka Performed at [facility] Laboratory [address] Free: [phone] No. [id number] AB TITER (test code = 247) Antibody Titer: <1 Performed at [facility] Laboratory Services - [place] [address]Toll Free: [phone] No. [id number] [facility] BranchAntibody Titer Xepsusd1953-69-53 22:54:08* Test Item Value Reference Range Interpretation Comme nts TITERED AB (test code = 1141) Ab Titered: Jka Performed at [facility] Laboratory Services [place] [address]Toll Free: [phone] No. [id number] AB TITER (test code = 247) Antibody Titer: <1 Performed at [facility] Laboratory [address] [address]Fvdj Free: [phone] No. [id number] [facility] Urinalysis Glucose & Lvzqokw8578-27-74 16:04:00* Test Item Value Reference Range Interpretation Comme nts POCT U PROT (test code = 3259) trace Negative - Negat berencie POCT U GLU (test code = 3256) negative Negative - Negati ve Lab Interpretation (test cod e = 89293-9) Normal [facility] Urinalysis Glucose & Ykppyzn8907-95-28 16:04:00* Test Item Value Reference Range Interpretation Comme nts POCT U PROT (test code = 3259) trace Negative - Negat berenice POCT U GLU (test code = 3256) negative Negative - Negati ve Lab Interpretation (test cod e = 58636-5) Normal [facility] Urinalysis Glucose & Jcmknbn4987-97-52 16:04:00* Test Item Value Reference Range Interpretation Comme nts POCT U PROT (test code = 3259) trace Negative - Negat berenice POCT U GLU (test code = 3256) negative Negative - Negati ve Lab Interpretation (test cod e = 77833-7) Normal [facility]burgAntibody Titer Ycbvugn3407-23-27 00:09:31* Test Item Value Reference Range Interpretation Comme nts TITERED AB (test code = 1141) Ab Titered: s Performed at [facility] Laboratory [address] [address]Qepi Free: [phone] No. [id number] AB TITER (test code = 247) Antibody Titer: <1 Performed at [address] [address]Qbwr Free: [phone] No. [id number] [facility] EdinburgAntibody Titer Cdmevtz5928-40-24 00:09:05* Test Item Value Reference Range Interpretation Comme nts TITERED AB (test code = 1141) Ab Titered: Jka Performed at [facility] Laboratory Services - [place] Blood [address] [address]Symr Free: [phone] No. [id number] AB TITER (test code = 247) Antibody Titer: <1 Performed at [facility] Laboratory Services - [facility] Blood [address] [address]Nijf Free: [phone] No. [id number] [facility] EdinburgPANEL YLWVBIGKZFPQVE4855-15-42 23:01:41 ANTIBODY NCSmlt-NbbKaij-m LABUnStarr County Memorial HospitalPrenatal Workup, Blood Tcwa0911-58-05 17:58:00* Test Item Value Reference Range Interpretation Comme nts ABO & RH (test code = 20) O POSITIVE IAT (test code = 1185) Positive [facility] URINALYSIS W SPECIFIC [id number] 16:08:00* Test Item Value Reference Range Interpretation Comme nts POCT U SP GRAV (test code = 3255) . 1.005-1.025 POCT PH U (test code = 3254) . 5-8 POCT U LEUK EST (test code = 3263) . Negative - Negative POCT U NIT (test code = 3262) . Negative - Negati ve POCT U PROT (test code = 3259) negative Negative - Negat berenice POCT U GLU (test code = 3256) negative Negative - Negati ve POCT U KETONE (test code = 3258) . Negative - Neg ative POCT U UROBILI (test code = 3260) . 0.2-1 POCT U BILI (test code = 3261) . Negative - Negat berenice POCT U BLD (test code = 3257) . Negative - Negati ve POCT U COLOR (test code = 3266) . POCT U APPEAR (test code = 3267) Lab Interpretation (test cod e = 81643-0) Normal [facility] Urinalysis Glucose & Xgqqafp1387-00-57 16:40:00* Test Item Value Reference Range Interpretation Comme nts POCT U PROT (test code = 3259) trace Negative - Negat berenice POCT U GLU (test code = 3256) negative Negative - Negati ve Lab Interpretation (test cod e = 23645-2) Abnormal [facility] Urinalysis Glucose & Gzbtatq6368-95-47 16:40:00* Test Item Value Reference Range Interpretation Comme nts POCT U PROT (test code = 3259) trace Negative - Negat berenice POCT U GLU (test code = 3256) negative Negative - Negati ve Lab Interpretation (test cod e = 57227-4) Abnormal [facility]burgAntibody Titer Krzcklv2381-31-09 03:14:27* Test Item Value Reference Range Interpretation Comme nts TITERED AB (test code = 1141) Ab Titered: Jka Performed at [facility] Laboratory Services - [facility] Blood [place] [address]Toll Free: [phone] No. [id number] AB TITER (test code = 247) Antibody Titer: <1 Performed at [facility] Laboratory Services [facility] Blood [place] [address]Toll Free: [phone] No. [id number] [facility]burgPANEL RJUQYMNZOJYCOJ3294-08-78 03:14:24 ANTIBODY IDAnti-JkaUndetermined Spec LABUnSch[facility] URINALYSIS W SPECIFIC [id number] 16:46:00* Test Item Value Reference Range Interpretation Comme nts POCT U SP GRAV (test code = 3255) . 1.005-1.025 POCT PH U (test code = 3254) . 5-8 POCT U LEUK EST (test code = 3263) . Negative - Negative POCT U NIT (test code = 3262) . Negative - Negati ve POCT U PROT (test code = 3259) trace Negative - Negat berenice POCT U GLU (test code = 3256) negative Negative - Negati ve POCT U KETONE (test code = 3258) . Negative - Neg ative POCT U UROBILI (test code = 3260) . 0.2-1 POCT U BILI (test code = 3261) . Negative - Negat berenice POCT U BLD (test code = 3257) . Negative - Negati ve POCT U COLOR (test code = 3266) POCT U APPEAR (test code = 3267) Lab Interpretation (test cod e = 46868-3) Abnormal [facility] Urinalysis Glucose & Lawahpf9034-66-74 16:39:00* Test Item Value Reference Range Interpretation Comme nts POCT U PROT (test code = 3259) Trace Negative - Negat berenice POCT U GLU (test code = 3256) Negative Negative - Negati ve Lab Interpretation (test cod e = 71597-2) Abnormal [facility] Urinalysis Glucose & Imgcqke5316-61-21 16:39:00* Test Item Value Reference Range Interpretation Comme nts POCT U PROT (test code = 3259) Trace Negative - Negat berenice POCT U GLU (test code = 3256) Negative Negative - Negati ve Lab Interpretation (test cod e = 30917-8) Abnormal [facility] Urinalysis Glucose & Shroqyi2549-83-14 16:39:00* Test Item Value Reference Range Interpretation Comme nts POCT U PROT (test code = 3259) Trace Negative - Negat berenice POCT U GLU (test code = 3256) Negative Negative - Negati ve Lab Interpretation (test cod e = 39044-9) Abnormal [facility] Urinalysis Glucose & Cgoizqm2501-96-20 16:39:00* Test Item Value Reference Range Interpretation Comme nts POCT U PROT (test code = 3259) Trace Negative - Negat berenice POCT U GLU (test code = 3256) Negative Negative - Negati ve Lab Interpretation (test cod e = 11310-7) Abnormal [facility]burgAntibody Titer Yjsefom2208-81-01 00:16:00* Test Item Value Reference Range Interpretation Comme nts TITERED AB (test code = 1141) Ab Titered: s Performed at [facility] Laboratory Services - [facility] Blood [address] [address]Rppl Free: [phone] No. [id number] AB TITER (test code = 247) Antibody Titer: <1 Performed at [facility] Laboratory Services [facility] Blood [address] [address]Ufzl Free: [phone] No. [id number] [facility]burgAntibody Titer Gcnkcuk6316-86-80 00:16:00* Test Item Value Reference Range Interpretation Comme nts TITERED AB (test code = 1141) Ab Titered: s Performed at [facility] Laboratory Services - [address] Free: [phone] No. [id number] AB TITER (test code = 247) Antibody Titer: <1 Performed at [facility] Laboratory Services - [address] Free: [phone] No. [id number] [facility]burgAntibody Titer Eglvhfl8489-15-40 00:16:00* Test Item Value Reference Range Interpretation Comme nts TITERED AB (test code = 1141) Ab Titered: s Performed at [facility] Laboratory Services - [address] Free: [phone] No. [id number] AB TITER (test code = 247) Antibody Titer: <1 Performed at [facility] Laboratory Services - [address] Free: [phone] No. [id number] [facility] KJFKXIEVOCLKHU6593-57-48 00:15:59* Test Item Value Reference Range Interpretation Comme nts ANTIBODY ID (test code = 245) Anti-s Hx anti-Jka not showing currentlyPerformed at [facility] Laboratory Services - [address] Free: [phone] No. [id number] [facility] XFDWAHRIXKQFQX6019-25-29 00:15:59* Test Item Value Reference Range Interpretation Comme nts ANTIBODY ID (test code = 245) Anti-s Hx anti-Jka not showing currentlyPerformed at [facility] Laboratory Services - [address] Free: [phone] No. [id number] [facility] OWFPAVSIKJCRJF1607-52-90 00:15:59* Test Item Value Reference Range Interpretation Comme nts ANTIBODY ID (test code = 245) Anti-s Hx anti-Jka not showing currentlyPerformed at [facility] Laboratory Services - [facility] Blood [address] [address]Vcjw Free: [phone] No. [id number] [facility] MQMDWZQRJXHURD2256-90-00 02:39:20 ANTIBODY FBYifi-PjqBrdt-v LABS[facility] RVKNTJTYTCGOFC6847-93-31 02:39:20ANTIBODY YDBjop-TeaSchv-i LABS[facility] AORAYYESICLBZL4975-84-25 02:39:20ANTIBODY TCSele-GzzMalx-y [facility] IDENTIFICATION 2023-03-16 02:39:20ANTIBODY DBAnfq-EboNoia-r [facility] OGRZ1426-16-63 19:59:00* Test Item Value Reference Range Interpretation Comme nts POCT PREG (test code = 1605) Positive On board controls acceptable with C Line (test code = 3574) Yes POCT PREG LOT # (test code = 3575) POCT PREG TEST DATE ( test code = 3576) Lab Interpretation (test cod e = 68249-3) Abnormal [facility] [id number] 19:59:00* Test Item Value Reference Range Interpretation Comme nts POCT PREG (test code = 1605) Positive On board controls acceptable with C Line (test code = 3574) Yes POCT PREG LOT # (test code = 3575) POCT PREG TEST DATE ( test code = 3576) Lab Interpretation (test cod e = 45534-4) Abnormal [facility] [id number] 19:59:00* Test Item Value Reference Range Interpretation Comme nts POCT PREG (test code = 1605) Positive On board controls acceptable with C Line (test code = 3574) Yes POCT PREG LOT # (test code = 3575) POCT PREG TEST DATE ( test code = 3576) Lab Interpretation (test cod e = 91461-7) Abnormal [facility] [id number] 19:59:00* Test Item Value Reference Range Interpretation Comme nts POCT PREG (test code = 1605) Positive On board controls acceptable with C Line (test code = 3574) Yes POCT PREG LOT # (test code = 3575) POCT PREG TEST DATE ( test code = 3576) Lab Interpretation (test cod e = 93312-1) Abnormal [facility] [id number] 19:59:00* Test Item Value Reference Range Interpretation Comme nts POCT PREG (test code = 1605) Positive On board controls acceptable with C Line (test code = 3574) Yes POCT PREG LOT # (test code = 3575) POCT PREG TEST DATE ( test code = 3576) Lab Interpretation (test cod e = 87688-1) Abnormal [facility] [id number] 19:59:00* Test Item Value Reference Range Interpretation Comme nts POCT PREG (test code = 1605) Positive On board controls acceptable with C Line (test code = 3574) Yes POCT PREG LOT # (test code = 3575) POCT PREG TEST DATE ( test code = 3576) Lab Interpretation (test cod e = 12017-4) Abnormal [facility]burgVAGINAL PATHOGENS DNA [id number] 00:00:00 * Test Item Value Reference Range Interpretation Comme nts HENRI SPECIES (test code = 34258) NEGATIVE G. VAGINALIS (test code = 46559) POSITIVE T. VAGINALIS (test code = 84768) NEGATIVE Clint F AustinVAGINAL PATHOGENS DNA KYFQJ9017-78-82 00:00:00* Test Item Value Reference Range Interpretation Comme nts HENRI SPECIES (test code = 73790) NEGATIVE G. VAGINALIS (test code = 51518) POSITIVE T. VAGINALIS (test code = 58996) NEGATIVE Clint F AustinVAGINAL PATHOGENS DNA WRTDO2455-03-02 00:00:00* Test Item Value Reference Range Interpretation Comme nts HENRI SPECIES (test code = 36342) NEGATIVE G. VAGINALIS (test code = 03793) POSITIVE T. VAGINALIS (test code = 98339) NEGATIVE Clint F AustinVAGINAL PATHOGENS DNA [id number] 00:00:00* Test Item Value Reference Range Interpretation Comme nts HENRI SPECIES (test code = 80291) NEGATIVE G. VAGINALIS (test code = 12277) POSITIVE T. VAGINALIS (test code = 76723) NEGATIVE Clint Adamson AustinPOCT MOLECULAR IDGWU8576-20-28 19:03:37* Test Item Value Reference Range Interpretation Comme nts POCT Molecular Strep (test c ode = 80613-8) Negative Negative Lab Interpretation (test cod e = 87961-8) Normal [facility] EdinburgGLUCOSE BVKPUUZ2163-20-09 05:14:29* Test Item Value Reference Range Interpretation Comme nts GLU FASTNG (test code = 0590624827) 100 mg/dL 70-110 Lab Interpretation (test cod e = 64455-8) Normal [facility] EdinburgGLUCOSE QHHGZPP8720-96-28 05:14:29* Test Item Value Reference Range Interpretation Comme nts GLU FASTNG (test code = 5845852002) 100 mg/dL 70-110 Lab Interpretation (test cod e = 71042-1) Normal [facility] EdinburgGALV ONLY - SYPHILIS IGG/ZXJ4154-70-04 14:55:22* Test Item Value Reference Range Interpretation Comme nts Syphilis IgG/IgM (test code = 44847-7) Non-reactive Non-reactive ANIBAL (test code = ANIBAL) Non-reactive - No serologic evidence of T. pallidum infection. Cannot exclude incubating or early syphilis. Submit a second specimen in 2-4 weeks if syphilis is clinically suspected. Equivocal - Further testing to follow. Reactive - Further testing to follow. Lab Interpretation (test code = 69158-1) Normal [facility] EdinburgPANEL OUXMLAZJFYZBFA1836-28-07 04:06:26 ANTIBODY CTAnvy-KipAxku-c LABUnStarr County Memorial HospitalRHO (D) IMMUNE ERODNUWX5884-09-73 02:57:52* Test Item Value Reference Range Interpretation Comme nts RHIG CANDIDATE? (test code = 5188) No- see comment Patient is not a candidate for RhIg- Patient is Rh Positive.Performed at [facility] Laboratory Services - [facility] Blood [address] [place] [address]Dwew Free: [phone] No. [id number] [facility] EdinburgANTIGEN TYPING JUTPUQS8005-77-87 01:42:02* Test Item Value Reference Range Interpretation Comme nts ANTIGEN ID (test code = 1688) Jka Antigen Negative Performed at [facility] Laboratory Services - [facility] Blood [address] Free: [phone] No. [id number] ANTIGEN ID (test code = 5062) s Antigen Negative Performed at [facility] Laboratory Services - [facility] Blood [address] Free: [phone] No. [id number] ANTIGEN ID (test code = 5063) N Antigen Negative Performed at [facility] Laboratory Services - [facility] Blood [address] Free: [phone] No. [id number] [facility] EdinburgARTERIAL CORD [id number] 00:24:22* Test Item Value Reference Range Interpretation Comme nts BASE EXCESS, CORD (test code = 8799253145) -2.0 mEq/L AC PH, CORD (BEAKER) (test code = 9718959532) 7.33 7.18-7.38 PC02, CORD (test code = 0843198090) 47 See_Comment [Automated messa ge] The system which generated this result transmitted reference range: 32 - 66 mmHg. The reference range was not used to interpret this result as normal/abnormal. PO2, CORD (test code = 2833258370) 23 See_Comment [Automated messa ge] The system which generated this result transmitted reference range: 10 - 30 mmHg. The reference range was not used to interpret this result as normal/abnormal. BICARBONATE, CORD (test code = 8931213914) 24 See_Comment [Automated messa ge] The system which generated this result transmitted reference range: 17 - 27 mEq/L. The reference range was not used to interpret this result as normal/abnormal. [facility] EdinburgVENOUS CORD [id number] 00:23:51* Test Item Value Reference Range Interpretation Comme nts VENOUS BASE EXCESS, CORD (test code = 6122769127) 0.1 mEq/L VENOUS PH, CORD (test code = 0934532548) 7.35 7.25-7.45 VENOUS PC02, CORD (test code = 2353819669) 49 See_Comment [Automated messa ge] The system which generated this result transmitted reference range: 27 - 49 mmHg. The reference range was not used to interpret this result as normal/abnormal. VENOUS PO2, CORD (test code = 5036799795) 26 See_Comment [Automated me ssage] The system which generated this result transmitted reference range: 17 - 41 mmHg. The reference range was not used to interpret this result as normal/abnormal. VENOUS BICARBONATE, CORD (test code = 2419305876) 26 See_Comment [Automated messa ge] The system which generated this result transmitted reference range: 12 - 29 mEq/L. The reference range was not used to interpret this result as normal/abnormal. [facility] EdinburgRHO (D) IMMUNE HZKHVREA7306-07-66 00:08:37* Test Item Value Reference Range Interpretation Comme nts RHIG CANDIDATE? (test code = 5188) No- see comment Patient is not a candidate for RhIg- Patient is Rh Positive.Performed at [facility] Laboratory Services - [facility] Blood [address] [address]Hgpu Free: [phone] No. [id number] [facility] EdinburgHIV 1/2 AG-AB WITH HAYKMF6620-11-87 22:50:35* Test Item Value Reference Range Interpretation Comme nts HIV Semi-quantitative (test code = 79847-5) 0.07 Negative ANIBAL (test code = ANIBAL) Non-reactive for HIV-1 antigen and HIV-1/HIV-2 antibodies. ?No laboratory evidence of HIV infection. ?Repeat in 2-4 weeks if acute HIV infection is suspected. [facility] EdinburgHepatitis B Surface Xmhyqnb3892-06-98 21:30:05 * Test Item Value Reference Range Interpretation Comme nts HBsAg Semi-Quantitative (maxwell t code = 5195-3) 0.05 Negative [facility] EdinburgCBC with Sgegqxzbqwrq6840-76-12 20:02:46* Test Item Value Reference Range Interpretation Comme nts WBC (test code = 6690-2) 8.44 See_Comment [Automated messa ge] The system which generated this result transmitted reference range: 4.30 - 11.10 10*3/?L. The reference range was not used to interpret this result as normal/abnormal. RBC (test code = 789-8) 4.52 See_Comment [Automated messa ge] The system which generated this result transmitted reference range: 3.93 - 5.25 10*6/?L. The reference range was not used to interpret this result as normal/abnormal. HGB (test code = 718-7) 12.7 g/dL 11.6-15.0 HCT (test code = 4544-3) 39.0 % 35.7-45.2 MCV (test code = 787-2) 86.3 fL 80.6-95.5 MCH (test code = 785-6) 28.1 pg 25.9-32.8 MCHC (test code = 786-4) 32.6 g/dL 31.6-35.1 RDW-SD (test code = 35314-3) 49.2 fL 39.0-49.9 RDW-CV (test code = 788-0) 15.6 % 12.0-15.5 H PLT (test code = 777-3) 209 See_Comment [Automated UIBLUEPRINTa ge] The system which generated this result transmitted reference range: 166 - 358 10*3/?L. The reference range was not used to interpret this result as normal/abnormal. MPV (test code = 99856-4) 12.0 fL 9.5-12.9 NRBC/100 WBC (test code = 0201611586) 0.0 See_Comment [Automated Dayjet ssage] The system which generated this result transmitted reference range: 0.0 - 10.0 /100 WBCs. The reference range was not used to interpret this result as normal/abnormal. NRBC x10^3 (test code = 5404150832) See_Comment [Automated UIBLUEPRINTa ge] The system which generated this result transmitted reference range: 10*3/?L. The reference range was not used to interpret this result as normal/abnormal. GRAN MAT (NEUT) % (test code = 770-8) 69.4 % IMM GRAN % (test code = 8125965705) 0.40 % LYMPH % (test code = 736-9) 22.7 % MONO % (test code = 5905-5) 6.9 % EOS % (test code = 713-8) 0.5 % BASO % (test code = 706-2) 0.1 % GRAN MAT x10^3(ANC) (test code = 9797710892) 5.86 10*3/uL 1.88-7.09 IMM GRAN x10^3 (test code = 7446517297) 0.03 10*3/uL 0.00-0.06 LYMPH x10^3 (test code = 731-0) 1.92 10*3/uL 1.32-3.29 MONO x10^3 (test code = 742-7) 0.58 10*3/uL 0.33-0.92 EOS x10^3 (test code = 711-2) 0.04 10*3/uL 0.03-0.39 BASO x10^3 (test code = 704-7) 0.01-0.07 Lab Interpretation (test code = 89077-0) Abnormal [facility] EdinburgType and Screen - ONCE Knifiby3738-06-14 19:49:00* Test Item Value Reference Range Interpretation Comme nts ABO & RH (test code = 20) O POSITIVE IAT (test code = 1185) Positive [facility] EdinburgPOPA URINALYSIS W SPECIFIC [id number] 14:34:00* Test Item Value Reference Range Interpretation Comme nts POCT U SP GRAV (test code = 3255) . 1.005-1.025 POCT PH U (test code = 3254) . 5-8 POCT U LEUK EST (test code = 3263) . Negative - N egative POCT U NIT (test code = 3262) . Negative - Negati ve POCT U PROT (test code = 3259) neg Negative - Negat berenice POCT U GLU (test code = 3256) neg Negative - Negati ve POCT U KETONE (test code = 3258) . Negative - Neg ative POCT U UROBILI (test code = 3260) . 0.2-1 POCT U BILI (test code = 3261) . Negative - Negat berenice POCT U BLD (test code = 3257) . Negative - Negati ve POCT U COLOR (test code = 3266) . POCT U APPEAR (test code = 3267) . [facility] URINALYSIS W SPECIFIC [id number] 20:57:00* Test Item Value Reference Range Interpretation Comme nts POCT U SP GRAV (test code = 3255) . 1.005-1.025 POCT PH U (test code = 3254) 6 mg/dl 5-8 POCT U LEUK EST (test code = 3263) Trace Negative - Negative POCT U NIT (test code = 3262) Neg Negative - Negati ve POCT U PROT (test code = 3259) Trace Negative - Negat berenice POCT U GLU (test code = 3256) Neg Negative - Negati ve POCT U KETONE (test code = 3258) None Negative - Neg ative POCT U UROBILI (test code = 3260) . 0.2-1 POCT U BILI (test code = 3261) . Negative - Negat berenice POCT U BLD (test code = 3257) Trace Negative - Negati ve POCT U COLOR (test code = 3266) POCT U APPEAR (test code = 3267) [facility] URINALYSIS W SPECIFIC [id number] 14:13:00* Test Item Value Reference Range Interpretation Comme nts POCT U SP GRAV (test code = 3255) . 1.005-1.025 POCT PH U (test code = 3254) . 5-8 POCT U LEUK EST (test code = 3263) . Negative - N egative POCT U NIT (test code = 3262) . Negative - Negati ve POCT U PROT (test code = 3259) NEG Negative - Negat berenice POCT U GLU (test code = 3256) NEG Negative - Negati ve POCT U KETONE (test code = 3258) . Negative - Neg ative POCT U UROBILI (test code = 3260) . 0.2-1 POCT U BILI (test code = 3261) . Negative - Negat berenice POCT U BLD (test code = 3257) . Negative - Negati ve POCT U COLOR (test code = 3266) . POCT U APPEAR (test code = 3267) . [facility] URINALYSIS W SPECIFIC [id number] 16:01:00* Test Item Value Reference Range Interpretation Comme nts POCT U SP GRAV (test code = 3255) . 1.005-1.025 POCT PH U (test code = 3254) . 5-8 POCT U LEUK EST (test code = 3263) . Negative - N egative POCT U NIT (test code = 3262) . Negative - Negati ve POCT U PROT (test code = 3259) Trace Negative - Negat berenice POCT U GLU (test code = 3256) Neg Negative - Negati ve POCT U KETONE (test code = 3258) . Negative - Neg ative POCT U UROBILI (test code = 3260) . 0.2-1 POCT U BILI (test code = 3261) . Negative - Negat berenice POCT U BLD (test code = 3257) . Negative - Negati ve POCT U COLOR (test code = 3266) . POCT U APPEAR (test code = 3267) . [facility] URINALYSIS W SPECIFIC [id number] 17:19:00* Test Item Value Reference Range Interpretation Comme nts POCT U SP GRAV (test code = 3255) . 1.005-1.025 POCT PH U (test code = 3254) . 5-8 POCT U LEUK EST (test code = 3263) . Negative - N egative POCT U NIT (test code = 3262) . Negative - Negati ve POCT U PROT (test code = 3259) 1+ Negative - Negat berenice POCT U GLU (test code = 3256) Neg Negative - Negati ve POCT U KETONE (test code = 3258) . Negative - Neg ative POCT U UROBILI (test code = 3260) . 0.2-1 POCT U BILI (test code = 3261) . Negative - Negat berenice POCT U BLD (test code = 3257) . Negative - Negati ve POCT U COLOR (test code = 3266) POCT U APPEAR (test code = 3267) [facility] URINALYSIS W SPECIFIC [id number] 17:09:00* Test Item Value Reference Range Interpretation Comme nts POCT U SP GRAV (test code = 3255) . 1.005-1.025 POCT PH U (test code = 3254) . 5-8 POCT U LEUK EST (test code = 3263) . Negative - N egative POCT U NIT (test code = 3262) . Negative - Negati ve POCT U PROT (test code = 3259) Trace Negative - Negat berenice POCT U GLU (test code = 3256) Neg Negative - Negati ve POCT U KETONE (test code = 3258) . Negative - Neg ative POCT U UROBILI (test code = 3260) . 0.2-1 POCT U BILI (test code = 3261) . Negative - Negat berenice POCT U BLD (test code = 3257) . Negative - Negati ve POCT U COLOR (test code = 3266) . POCT U APPEAR (test code = 3267) .. [facility] URINALYSIS W SPECIFIC [id number] 17:09:00* Test Item Value Reference Range Interpretation Comme nts POCT U SP GRAV (test code = 3255) . 1.005-1.025 POCT PH U (test code = 3254) . 5-8 POCT U LEUK EST (test code = 3263) . Negative - N egative POCT U NIT (test code = 3262) . Negative - Negati ve POCT U PROT (test code = 3259) Trace Negative - Negat berenice POCT U GLU (test code = 3256) Neg Negative - Negati ve POCT U KETONE (test code = 3258) . Negative - Neg ative POCT U UROBILI (test code = 3260) . 0.2-1 POCT U BILI (test code = 3261) . Negative - Negat berenice POCT U BLD (test code = 3257) . Negative - Negati ve POCT U COLOR (test code = 3266) . POCT U APPEAR (test code = 3267) .. [facility] URINALYSIS W SPECIFIC [id number] 17:09:00* Test Item Value Reference Range Interpretation Comme nts POCT U SP GRAV (test code = 3255) . 1.005-1.025 POCT PH U (test code = 3254) . 5-8 POCT U LEUK EST (test code = 3263) . Negative - N egative POCT U NIT (test code = 3262) . Negative - Negati ve POCT U PROT (test code = 3259) Trace Negative - Negat berenice POCT U GLU (test code = 3256) Neg Negative - Negati ve POCT U KETONE (test code = 3258) . Negative - Neg ative POCT U UROBILI (test code = 3260) . 0.2-1 POCT U BILI (test code = 3261) . Negative - Negat berenice POCT U BLD (test code = 3257) . Negative - Negati ve POCT U COLOR (test code = 3266) . POCT U APPEAR (test code = 3267) .. [facility] URINALYSIS W SPECIFIC [id number] 22:02:00* Test Item Value Reference Range Interpretation Comme nts POCT U SP GRAV (test code = 3255) . 1.005-1.025 POCT PH U (test code = 3254) . 5-8 POCT U LEUK EST (test code = 3263) . Negative - Negative POCT U NIT (test code = 3262) . Negative - Negati ve POCT U PROT (test code = 3259) 1+ Negative - Negat berenice POCT U GLU (test code = 3256) negative Negative - Negati ve POCT U KETONE (test code = 3258) . Negative - Neg ative POCT U UROBILI (test code = 3260) . 0.2-1 POCT U BILI (test code = 3261) . Negative - Negat berenice POCT U BLD (test code = 3257) . Negative - Negati ve POCT U COLOR (test code = 3266) . POCT U APPEAR (test code = 3267) . [facility] URINALYSIS W SPECIFIC [id number] 14:34:00* Test Item Value Reference Range Interpretation Comme nts POCT U SP GRAV (test code = 3255) na 1.005-1.025 POCT PH U (test code = 3254) na 5-8 POCT U LEUK EST (test code = 3263) na Negative - Negative POCT U NIT (test code = 3262) na Negative - Negati ve POCT U PROT (test code = 3259) negative Negative - Negat berenice POCT U GLU (test code = 3256) negative Negative - Negati ve POCT U KETONE (test code = 3258) na Negative - Neg ative POCT U UROBILI (test code = 3260) na 0.2-1 POCT U BILI (test code = 3261) na Negative - Negat berenice POCT U BLD (test code = 3257) na Negative - Negati ve POCT U COLOR (test code = 3266) POCT U APPEAR (test code = 3267) [facility] URINALYSIS W SPECIFIC [id number] 17:09:00* Test Item Value Reference Range Interpretation Comme nts POCT U SP GRAV (test code = 3255) . 1.005-1.025 POCT PH U (test code = 3254) . 5-8 POCT U LEUK EST (test code = 3263) . Negative - N egative POCT U NIT (test code = 3262) . Negative - Negati ve POCT U PROT (test code = 3259) Trace Negative - Negat berenice POCT U GLU (test code = 3256) Neg Negative - Negati ve POCT U KETONE (test code = 3258) . Negative - Neg ative POCT U UROBILI (test code = 3260) . 0.2-1 POCT U BILI (test code = 3261) . Negative - Negat berenice POCT U BLD (test code = 3257) . Negative - Negati ve POCT U COLOR (test code = 3266) . POCT U APPEAR (test code = 3267) . [facility] URINALYSIS W SPECIFIC [id number] 21:02:00* Test Item Value Reference Range Interpretation Comme nts POCT U SP GRAV (test code = 3255) . 1.005-1.025 POCT PH U (test code = 3254) . 5-8 POCT U LEUK EST (test code = 3263) . Negative - N egative POCT U NIT (test code = 3262) . Negative - Negati ve POCT U PROT (test code = 3259) 1+ Negative - Negat berenice POCT U GLU (test code = 3256) Neg Negative - Negati ve POCT U KETONE (test code = 3258) . Negative - Neg ative POCT U UROBILI (test code = 3260) . 0.2-1 POCT U BILI (test code = 3261) . Negative - Negat berenice POCT U BLD (test code = 3257) . Negative - Negati ve POCT U COLOR (test code = 3266) . POCT U APPEAR (test code = 3267) [facility] URINALYSIS W SPECIFIC [id number] 21:02:00* Test Item Value Reference Range Interpretation Comme nts POCT U SP GRAV (test code = 3255) . 1.005-1.025 POCT PH U (test code = 3254) . 5-8 POCT U LEUK EST (test code = 3263) . Negative - N egative POCT U NIT (test code = 3262) . Negative - Negati ve POCT U PROT (test code = 3259) 1+ Negative - Negat berenice POCT U GLU (test code = 3256) Neg Negative - Negati ve POCT U KETONE (test code = 3258) . Negative - Neg ative POCT U UROBILI (test code = 3260) . 0.2-1 POCT U BILI (test code = 3261) . Negative - Negat berenice POCT U BLD (test code = 3257) . Negative - Negati ve POCT U COLOR (test code = 3266) . POCT U APPEAR (test code = 3267) [facility] URINALYSIS W SPECIFIC [id number] 15:50:00* Test Item Value Reference Range Interpretation Comme nts POCT U SP GRAV (test code = 3255) . 1.005-1.025 POCT PH U (test code = 3254) . 5-8 POCT U LEUK EST (test code = 3263) . Negative - N egative POCT U NIT (test code = 3262) . Negative - Negati ve POCT U PROT (test code = 3259) Trace Negative - Negat berenice POCT U GLU (test code = 3256) Neg Negative - Negati ve POCT U KETONE (test code = 3258) . Negative - Neg ative POCT U UROBILI (test code = 3260) . 0.2-1 POCT U BILI (test code = 3261) . Negative - Negat berenice POCT U BLD (test code = 3257) . Negative - Negati ve POCT U COLOR (test code = 3266) . POCT U APPEAR (test code = 3267) [facility]2 HR GLUCOSE TOLERANCE [id number] 06:50:43 * Test Item Value Reference Range Interpretation Comme nts GLUC 2 HR (test code = 8875792292) 84 mg/dL 70-120 Lab Interpretation (test cod e = 84110-0) Normal [facility] [id number] 06:46:21* Test Item Value Reference Range Interpretation Comme nts GLU FASTNG (test code = 6455608299) 89 mg/dL 70-110 Lab Interpretation (test cod e = 93647-0) Normal [facility] HR GLUCOSE TOLERANCE [id number] 06:45:06 * Test Item Value Reference Range Interpretation Comme nts GLUC 3 HR (test code = 4072060304) 61 mg/dL 70-110 L Lab Interpretation (test cod e = 26537-2) Abnormal [facility] HR GLUCOSE TOLERANCE [id number] 06:45:05 * Test Item Value Reference Range Interpretation Comme nts GLUC 1 HR (test code = 3425465674) 147 mg/dL 120-170 Lab Interpretation (test cod e = 68914-3) Normal [facility]BELLA SCREEN (JAEL) [id number] 17:14:53 * Test Item Value Reference Range Interpretation Comme [facility] Rubella screen IgG (test code = 4489712647) Equivocal Negative ANIBAL (test code = ANIBAL) Positive - Indicat es the patient was exposed to Rubella through infection or vaccination.Negative - Indicates the patient could be susceptible to Rubella infection.Equivocal - A second specimen should be sent. [facility]ZV ANTIBODY [id number] 17:14:53* Test Item Value Reference Range Interpretation Comme [facility] VZV IgG antibody (test code = 94511-5) Positive Negative ANIBAL (test code = ANIBAL) Positive - Indicat es the patient was exposed to VZV through infection or vaccination.Negative - Indicates the patient could be susceptible to VZV infection.Equivocal - A second specimen should be sent for testing. [facility]V ONLY - SYPHILIS [id number] 15:33:03* Test Item Value Reference Range Interpretation Comme [facility] Syphilis IgG/IgM (test code = 15866-6) Non-reactive Non-reactive ANIBAL (test code = ANIBAL) Non-reactive - No serologic evidence of T. pallidum infection. Cannot exclude incubating or early syphilis. Submit a second specimen in 2-4 weeks if syphilis is clinically suspected. Equivocal - Further testing to follow. Reactive - Further testing to follow. Lab Interpretation (test code = 45902-2) Normal [facility]2 AG-AB WITH [id number] 10:05:57* Test Item Value Reference Range Interpretation Comme nts HIV Semi-quantitative (test code = 24033-6) Negative Negative ANIBAL (test code = ANIBAL) Non-reactive for HIV-1 antigen and HIV-1/HIV-2 antibodies. ?No laboratory evidence of HIV infection. ?Repeat in 2-4 weeks if acute HIV infection is suspected. [facility]burg[facility]ENATAL WORKUP, BLOOD [id number] 06:55:05 * Test Item Value Reference Range Interpretation Comme nts ABO & RH (test code = 20) O POSITIVE Performed at [facility] Laboratory Services [facility] Blood [address] Free: [phone] No. [id number] IAT (test code = 1185) Negative Performed at [facility] Laboratory [facility] Blood [address] Free: [phone] No. [id number] [facility]AT[facility] B SURFACE [id number] 05:32:29 * Test Item Value Reference Range Interpretation Comme nts HBsAg Semi-Quantitative (maxwell t code = 5195-3) Negative Negative [facility] 1 HOUR POST [id number] 05:11:07* Test Item Value Reference Range Interpretation Comme nts GLUC 1 HR (test code = 1158352224) 141 mg/dL 120-170 Lab Interpretation (test cod e = 91387-4) Normal [facility]burgCB WITH [id number] 04:44:05* Test Item Value Reference Range Interpretation Comme nts WBC (test code = 6690-2) See_Comment [Automated messa ge] The system which generated this result transmitted reference range: 4.30 - 11.10 10*3/?L. The reference range was not used to interpret this result as normal/abnormal. RBC (test code = 789-8) See_Comment [Automated messa ge] The system which generated this result transmitted reference range: 3.93 - 5.25 10*6/?L. The reference range was not used to interpret this result as normal/abnormal. HGB (test code = 718-7) 12.1 g/dL 11.6-15 HCT (test code = 4544-3) 38.1 % 35.7-45.2 MCV (test code = 787-2) 82.1 fL 80.6-95.5 MCH (test code = 785-6) 26.1 pg 25.9-32.8 MCHC (test code = 786-4) 31.8 g/dL 31.6-35.1 RDW-SD (test code = 07880-6) 47.5 fL 39-49.9 RDW-CV (test code = 788-0) 15.9 % 12-15.5 H PLT (test code = 777-3) See_Comment [Automated UIBLUEPRINTa ge] The system which generated this result transmitted reference range: 166 - 358 10*3/?L. The reference range was not used to interpret this result as normal/abnormal. MPV (test code = 00620-3) 11.1 fL 9.5-12.9 NRBC/100 WBC (test code = 9995805948) See_Comment [Automated [employer] ssage] The system which generated this result transmitted reference range: 0.0 - 10.0 /100 WBCs. The reference range was not used to interpret this result as normal/abnormal. NRBC x10^3 (test code = 2348674801) See_Comment [Automated UIBLUEPRINTa ge] The system which generated this result transmitted reference range: 10*3/?L. The reference range was not used to interpret this result as normal/abnormal. GRAN MAT (NEUT) % (test code = 770-8) 73.9 % IMM GRAN % (test code = 7861000170) 0.30 % LYMPH % (test code = 736-9) 20.5 % MONO % (test code = 5905-5) 4.6 % EOS % (test code = 713-8) 0.4 % BASO % (test code = 706-2) 0.3 % GRAN MAT x10^3(ANC) (test code = 5976781557) 5.33 10*3/uL 1.88-7.09 IMM GRAN x10^3 (test code = 7425387731) 0-0.06 LYMPH x10^3 (test code = 731-0) 1.48 10*3/uL 1.32-3.29 MONO x10^3 (test code = 742-7) 0.33 10*3/uL 0.33-0.92 EOS x10^3 (test code = 711-2) 0.03 10*3/uL 0.03-0.39 BASO x10^3 (test code = 704-7) 0.01-0.07 Lab Interpretation (test code = 72353-8) Abnormal [facility] URINALYSIS W/O SPECIFIC [id number] 15:11:00* Test Item Value Reference Range Interpretation Comme nts POCT PH U (test code = 3254) 8 mg/dl 5-8 POCT U LEUK EST (test code = 3263) 1+ Negative - Negative POCT U NIT (test code = 3262) Neg Negative - Negati ve POCT U PROT (test code = 3259) Trace Negative - Negat berenice POCT U GLU (test code = 3256) Neg Negative - Negati ve POCT U KETONE (test code = 3258) None Negative - Neg ative POCT U BLD (test code = 3257) Trace Negative - Negati ve [facility]burgPOPA [id number] 15:09:00* Test Item Value Reference Range Interpretation Comme nts POCT PREG (test code = 1605) Positive On board controls acceptable with C Line (test code = 3574) Yes POCT PREG LOT # (test code = 3575) POCT PREG TEST DATE ( test code = 3576) [facility] Consult Notes Date/Time Note Provider Source 2023-10-28 11:35:00 Associated Order(s): CONSULT ADULT OCCUPATIONAL THERAPY OT GENERAL EVALUATION Consult received via Ch[employer], EMR reviewed and evaluation completed 10/28/23. Patient referred to occupational therapy for evaluation and treatment secondary to Blurring of vision and per stroke protocol. Patient agreeable to participate in occupational therapy. Discharge Recommendations: Therapy Needs and Potential:Not applicable as no further skilled acute care OT needs at this time. Challenges to Home Transition:None Equipment Recommendations:None PLAN OF CARE: Discharge from OT services Precautions: Weight bearing status: NA General: PPE Utilized: Gloves and Fall Bracing: N/A Current Occupational Performance and/or Treatment: AM-PAC 6 Clicks (Raw Score 0=Dependent, 24=Independent; Low function Raw Score 0= Dependent, 32=Independent): Raw Score - Daily Activity: 24 T-Scale Score - Daily Activity: 57.54 UB Dressing: Independent, Patient demonstrates adequate JULIEN UE AROM and fine motor coordination to don/doff an overhead shirt. LB Dressing: Independent, Pt doffs/dons non skid socks while seated EOB utilizing figure four technique. Toilet Transfer: Independent, simulated with sit<>stand at bedside without use of BUE. Pt also amb to/from RR per below, but not wanting to sit on toilet at this time. Functional Mobility: Pt completed sit<>stand at EOB, and amb to/from restroom without use of assistive device. No loss of balance or instability noted. Patient/caregiver educated on: (for implementation especially during MS flare-ups) Adaptive equipment , Compensatory techniques/adaptive strategies, Fall prevention, Role of OT, and Safety awareness Patient left up in room speaking with nurse regarding discharge with call johnson in reach. Nursing present. Please, see full evaluation below for more detail. OT EVALUATION: 33 year old female Admit date: 10/27/2023 Date of onset: 10/27/23 Admit Diagnosis: Blurring of vision [H53.8] OT Diagnosis: Patient able to complete all self-care and functional transfers at baseline of independence at this time. PMH: Past Medical History: Diagnosis Date Abnormal maternal glucose tolerance, antepartum 11/25/2019 Chlamydia trachomatis infection of lower genitourinary sites 02/17/2014 Migraine Other general counseling and advice for contraceptive management 09/20/2022 PSH: Past Surgical History: Procedure Laterality Date SECTION N/A 05/13/2020 Surgeon: Susanne Pedraza MD; Location: Labor and Delivery - [facility] CONTINUOUS MONITORING (EXTERNAL) 10/10/2011 EXTERNAL CEPHALIC VERSION N/A 05/13/2020 Surgeon: Susanne Pedraza MD; Location: Labor and Delivery - [facility] [place] [facility] ANTEPARTUM VAG DLVR & 10/10/2011 PAIN: Denies pain before and after session. OCCUPATIONAL ROLES/HOME ENVIRONMENT: Home environment: Lives with spouse and 5 children ages 1 month to 12 years, 24/7 supervision/assistance is not available, and Single story home. 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 Function prior to admission: Household ambulation, Community ambulation, Independent with BADLs, and Independent with IADLs Suspected ischemic or hemorraghic stroke patient: No Equipment prior to admission: None PERFORMANCE SKILLS/FACTORS: UE Muscle Tone: bilateral WNL UE ROM: bilateral AROM WFL UE Strength: JULIEN UE 4/5 Hand dominance: right Dexterity/Coordination: bilateral Intact Endurance - Sitting: Good Standing: Good Sitting Balance - Static: Good Dynamic: Good Standing: Balance - Static Good Dynamic: Good Dizziness: No Skin Integrity: No breakdown noted and defer full skin assessment to nursing Sensation: Patient denies numbness and tingling in hands/fingers. Reports episodes of Numbness/tingling in BLE during MS flare-ups. Education provided for safety and fall prevention during a flare up. Oral Motor: WFL Communication: Able to verbalize needs Yes Other: N/A Vision: WFL Yes Other: glasses or contacts, new blurred vision in R nasal visual field of R eye Hearing: good; no issues reported COGNITION: Orientation: person, place, date/time, and situation Follows Commands: 1-step Yes Multi-step Yes Inconsistencies No Safety Awareness/Judgment: Good PROBLEM LIST: Patient able to complete all self-care and functional transfers at baseline of independence at this time. REHAB POTENTIAL/PROGNOSIS: NA as no further therapy needs PATIENT/FAMILY GOALS: return home TREATMENT/INTERVENTION PLAN: Discharge from OT PATIENT-FAMILY TEACHING Patient provided with preferred teaching of verbal information and demonstration on (for implementation especially during MS flare-ups) Adaptive equipment , Compensatory techniques/adaptive strategies, Fall prevention, Role of OT, and Safety awareness. Shows readiness to learn. Verbal instruction and Demonstration teaching provided. Individual verbalizes understanding of teaching provided. J. Young, OTR, OTD Pt may be followed by occupational therapy, however, evaluating therapist may not be primary therapist. Please contact the Department of Rehabilitation Services at for questions or concerns during week day coverage. Total Timed Treatment Codes: 4 Min Total Treatment Time: 12 Min Patient Complexity Level Low - An occupational therapy evaluation of low complexity was completed using the above tests and measures. The following information was obtained: An occupational profile and medical and therapy history, including a brief history with review of medical and/or therapy records related to the presenting problem. Various standardized and non-standardized assessments were used to identify at least 1-3 performance deficits related to physical, cognitive, or psychosocial skills that result in activity limitations and/or participation restrictions. Clinical decision making of low complexity may have been utilized, which includes an analysis of the occupational profile, analysis of data from problem-focused assessment(s), and consideration of a limited number of treatment options. Patient may presents with no comorbidities that affect occupational performance. Modification of tasks or assistance (e.g., physical or verbal) with assessment(s) may not have been necessary to enable completion of evaluation component. Alex Myers OT [facility] - Health History and Physical Notes Date/Time Note Provider Source 2023-10-28 00:36:56 GENERAL NEUROLOGY H&P NOTE DATE OF SERVICE: 10/28/2023 00:37 CHIEF COMPLAINT: R eye floater with blurry vision HISTORY OF PRESENT ILLNESS Domenica Hendrix is a 33 year old female right handed with PMHx of MS diagnosed in 2020 not on treatment, who presented on 10/28/2023 with CC of R eye floater. The patient reports that yesterday when she woke up around 7:30 am while watching TV, she started noticing a floater in the R eye in the R upper temporal quadrant for which she decided to go to [facility] ER. The patient reports that has been constant, but improving when she got to [facility] ER. UA done in the ER negative for infection. The patient was transfer to our facility for a higher level of care. The patient is being followed by neurology, Dr. Tobias, in clinic. Last office visit on 10/19/2023. Per chart review: Dr. Tobias note on 10/19/2023 Domenica Hendrix is a 33 year old female with MS who presents to the clinic for f/u. Last seen about 1 year ago. Interval history 10/19/2023: She just had another baby delivered on 09/12/2023, and she does not plan to have more children. She denies significantly clinical flare up or exacerbation. C/o right hand numbness particularly while eating chocolate or fast food. Hennessey floating while receiving oral steroid. Saw ophthalmology three week and was told everything was normal. Still no insurance, and she does not want to start any MS medication again. PAST MEDICAL HISTORY Past Medical History: Diagnosis Date Abnormal maternal glucose tolerance, antepartum 11/25/2019 Chlamydia trachomatis infection of lower genitourinary sites 02/17/2014 Migraine Other general counseling and advice for contraceptive management 09/20/2022 PAST SURGICAL HISTORY Past Surgical History: Procedure Laterality Date SECTION N/A 05/13/2020 Surgeon: Susanne Pedrzaa MD; Location: Labor and Delivery - [facility] CONTINUOUS MONITORING (EXTERNAL) 10/10/2011 EXTERNAL CEPHALIC VERSION N/A 05/13/2020 Surgeon: Susanne Pedraza MD; Location: Labor and [place] [facility] [place] [facility] ANTEPARTUM VAG DLVR & 10/10/2011 FAMILY HISTORY Family History Problem Relation Age of Onset Diabetes Maternal Grandmother Hypertension Maternal Grandmother Diabetes Paternal Grandmother Pancreatic Cancer Paternal Grandmother No Significant Medical Problems Mother No Significant Medical Problems Father No Significant Medical Problems Sister No Significant Medical Problems Brother Arthritis NoFHx Asthma NoFHx defects NoFHx Breast Cancer NoFHx Colon Cancer NoFHx Uterine Cancer NoFHx Cancer NoFHx Ovarian Cancer NoFHx Depression NoFHx Genetic NoFHx Heart NoFHx High cholesterol NoFHx Mental retardation NoFHx Neurological NoFHx Psychiatry NoFHx Other - see comments NoFHx Osteoporosis NoFHx SOCIAL HISTORY Social History Socioeconomic History Marital status: Tobacco Use Smoking status: Never Smokeless tobacco: Never Vaping Use Vaping status: Never Used Substance and Sexual Activity Alcohol use: No Alcohol/week: 0.0 standard drinks of alcohol Drug use: No Sexual activity: Yes Partners: Male control/protection: None Social History Narrative Patient lives with family. Patient feels safe at home. Protestant preference: Holiness NO cats. HOME MEDICATIONS Medications Prior to Admission Medication Sig Dispense Refill Last Dose docusate 100 mg capsule Take 2 capsules by mouth once daily as needed for Constipation. 60 capsule 1 Taking ferrous sulfate 325 mg (65 mg iron) tablet Take 1 tablet by mouth in the morning. 30 tablet 2 Taking ibuprofen 800 mg tablet Take 1 tablet by mouth every 8 (eight) hours as needed (pain). Take with food or milk. 21 tablet 0 Taking [id number] fum-folic 27 mg iron- 1 mg folic tablet Take 1 tablet by mouth in the morning. 100 tablet 3 Taking HOSPITAL MEDICATIONS Scheduled meds: IV meds: PRN meds: ALLERGY Allergies Allergen Reactions Latex Rash and Swelling REVIEW OF SYSTEMS As per HPI. PHYSICAL EXAM Vitals: 10/27/23 2021 10/27/23 2100 10/27/23 2200 10/28/23 0018 BP: 109/76 110/73 99/75 121/67 Pulse: 82 65 68 64 Resp: 16 16 18 Temp: 37.2 ?C (99 ?F) 36.6 ?C (97.9 ?F) TempSrc: Oral Oral SpO2: 100% 100% 100% 98% Weight: 77.8 kg (171 lb 9.6 oz) 77.6 kg (171 lb) Height: 1.626 m (5' 4") 1.626 m (5' 4") General: Well appearing. Dressed in hospital gowns. No apparent distress. Mental Status: Alert and oriented x4 (person, place, time, and situation). Consciousness, attention, concentration: normal, Stays focused and on task while being questioned. Language: intact to comprehension, fluency, repetition and naming. Fund of knowledge: is congruent with level of education. Remote and recent memory: normal. Cranial Nerves: I. Not tested. II. Symmetric, equally reactive pupils. RAPD intact. No red desaturation in bilateral eye. Field of vision intact to confrontation in either of the four quadrants. full to confrontation. R upper. Presence of floater in R eye in R upper temporal quadrant. III. IV., . Extraocular movements intact gaze evoked nystagmus . V. Normal sensation bilaterally in V1-3 distributions. VII. No facial droop noted. VIII. Hearing intact to finger rubbing in either ear. IX., X. Palatal elevation normal symmetrically. XI. Normal strength of sternocleidomastoid and trapezius muscles bilaterally. XII. Tongue in midline. Motor system: Tone: normal Bulk: normal Strength Right Left Deltoid 5 5 Biceps 5 5 Triceps 5 5 Wrist extensors 5 5 Interossei 5 5 Hip flexors 5 5 Knee flexors (hamstring) 5 5 Knee extensors (quadriceps) 5 5 Ankle dorsiflexors 5 5 Ankle plantar flexors 5 5 Deep Tendon Reflexes Right Left Biceps 2+ 2+ Triceps 2+ 2+ Brachioradialis 2+ 2+ Patella 2+ 2+ Achilles 1+ 1+ Pathologic reflexes and signs: Joseph's sign: negative bilaterally. Plantar response: mute bilaterally Cerebellum: Negative: tremors negative, nystagmus negative, rapid alternating movements, mblxuk-bl-nvdg testing, navf-ue-zfzt testing, rapid alternating movements: intact Sensory system: Light touch: intact Pinprick/temperature: intact Joint position/vibration: intact Gait: Deferred. normal General examination: HEENT: moist mucus membranes. Clear oropharynx. Lungs: normal breath sounds. No abnormal sounds. Cardio: normal heart sounds. No added sounds. Extremities: no cyanosis, clubbing or edema. Neck: supple. No carotid bruit or JVD. Abdomen: normal contour. Soft, non-tender to palpation. Normoactive bowel sounds. LABS, RADIOLOGY, ELECTROPHYSIOLOGY Relevant labs: === Study performed on encounter date 11/06/21 === MR BRAIN W WO CONTRAST - Impression - 1. Redemonstrated numerous demyelinating plaques within the supratentorial and infratentorial white matter, cervical and thoracic cord with increased conspicuity of lesions along the anterior horn lateral ventricles and the thoracic spine lesions. Other lesions appear stable or less conspicuous since prior exam on 09/29/2020. No findings to suggest active demyelination. 2. NeuroQuant multistructure atrophy report demonstrates unchanged findings related to demyelinating process and volume loss advanced for age. FOLLOW-UP RECOMMENDATIONS: Per clinical team. Preliminary Report Dictated by Resident: José Vasquez MD., have reviewed this study and agree with the above report. MRI Cervical spine w wo contrast (11/06/2021): IMPRESSION 1. Redemonstrated numerous demyelinating plaques within the supratentorial and infratentorial white matter, cervical and thoracic cord with increased conspicuity of lesions along the anterior horn lateral ventricles and the thoracic spine lesions. Other lesions appear stable or less conspicuous since prior exam on 09/29/2020. No findings to suggest active demyelination. 2. NeuroQuant multistructure atrophy report demonstrates unchanged findings related to demyelinating process and volume loss advanced for age. MRI Cervical and thoracic spine w wo contrast (09/29/2021): Impression Numerous T2/FLAIR intensities seen throughout the supra and infratentorial white matter, cervical and thoracic spinal cord in keeping with demyelinating process. Enhancement is seen in association with a short segment C6 lesion suggestive of active demyelination. The Neuroquant multi-structure atrophy report demonstrates findings in keeping with a demyelinating process and subsequent advanced for age degree of cerebral volume loss. MRI brain w wo contrast (09/29/2021): IMPRESSION Numerous T2/FLAIR intensities seen throughout the supra and infratentorial white matter, cervical and thoracic spinal cord in keeping with demyelinating process. Enhancement is seen in association with a short segment C6 lesion suggestive of active demyelination. The Neuroquant multi-structure atrophy report demonstrates findings in keeping with a demyelinating process and subsequent advanced for age degree of cerebral volume loss. ASSESSMENT AND PLAN Domenica Hendrix is a 33 year old female right handed with PMHx of MS, who presented on 10/28/2023 with CC of R eye floater for 1 day. Last MRI of the brain w wo contrast in 2021 re demonstrated numerous demyelinating plaques within the supratentorial and infratentorial white matter, cervical and thoracic cord with increased conspicuity of lesions along the anterior horn lateral ventricles and the thoracic spine lesions. The patient was recently seen by Dr. Tobias in office, but she is refusing treatment option offered, dimethyl fumarate (TECFIDERA). Neurological physical examination, remarkable for the presence of floater in the R upper quadrant. The patient sudden onset of visual symptoms, needs to be investigated, imaging's form the brain and orbit will be required. The patient would benefit for admission under neurology team. First problem: R eye floater Second problem: Hx of Multiple Sclerosis - Admit to General Neurology rodrigues - Q4H Neurochecks - Labs: cbc, cmp, phosphorus, test - Imaging: MRI of the brain and Orbit w wo contrast - Ophthalmology consult - Start Methylprednisolone 1000 mg IV for 3 days, follow up by prednisone short taper - PT/OT Prophylaxis: DVT- heparin Stress Ulcer: pantoprazole Code status: Full code Case was discussed and seen with Dell Rocha MD, Neurology faculty. Courtney Lewis MD PGY-2 Department of Neurology General Neurology [facility] Associated attestation - Dell Rocha MD - 10/28/2023 1:48 PM CDT Attending note: I personally examined the patient on the date of service as stated above and agree with the resident assessment and plan. I actively participated in the decision-making process. Please see the resident's note for additional details. Patient was dx with MS since 2020 but decline DMA. Previous imaging finding showed multiple demyelinating lesion in brain , C and T spine. Patient presented with right side vision defect ( more on left upper quadrant) Patient received on dose of solumedrol. MRI still pending. Patient would like to go home due to family issue. Will continue high dose oral steroid for 2 more days. MRI as outpatient. Ophthalmology eval outpatient. F/u with Dr. Tobias in clinic. [facility] 2023-09-11 23:15:21 TRIAGE/L&D HISTORY & PHYSICAL IDENTIFYING DATA Domenica Hendrix is 33 year old, /White, 38w4d, female with EVARISTO 09/21/2023, by Last Menstrual Period. : 1990 Primary Care Physician: Maddie Medina CHIEF COMPLAINT Ctx HISTORY OF PRESENT ILLNESS Domenica Hendrix is a 33 year old at 38w4d who presents for Ctx. The patient reports painful contractions starting this afternoon. Patient denies vaginal bleeding, denies leakage of fluid, admits contractions. Patient denies headache, denies nausea/vomiting, denies RUQ pain, denies visual abnormalities. Endorses normal movement. PAST OBSTETRIC HISTORY OB History Para Term AB Living 7 4 4 2 4 SAB IAB Ectopic Multiple Live Births 1 0 4 # Outcome Date GA Lbr Magdaleno/2nd Weight Sex Delivery Anes PTL Lv 7 Current 6 Term 08/09/22 39w0d 3590 g M EPI PEG 5 Term 05/13/20 39w0d 3605 g F , L CSE PEG 4 Term 10/05/18 39w0d 3515 g F NORMAL SPONT Y PEG 3 SAB 06/30/15 2 AB 03/2012 1 Term 10/10/11 38w0d 3600 g M NORMAL SPONT PEG PAST MEDICAL HISTORY Problem list: Patient Active Problem List Diagnosis Date Noted 32 weeks gestation of 07/31/2023 Other general counseling and advice for contraceptive management 09/20/2022 Cervical Papanicolaou smear negative within last 12 months 02/14/2022 Rubella non-immune status, antepartum 01/13/2022 Previous delivery affecting 01/12/2022 Multiple sclerosis affecting in third trimester 01/12/2022 Obesity (BMI 30-39.9) 02/12/2018 Operations: Past Surgical History: Procedure Laterality Date SECTION N/A 05/13/2020 Surgeon: Susanne Pedraza MD; Location: Labor and Delivery - [facility] CONTINUOUS MONITORING (EXTERNAL) 10/10/2011 EXTERNAL CEPHALIC VERSION N/A 05/13/2020 Surgeon: Susanne Pedraza MD; Location: Labor and Delivery - [facility] [place] [facility] ANTEPARTUM VAG DLVR & 10/10/2011 Past Medical History: Diagnosis Date Abnormal maternal glucose tolerance, antepartum 11/25/2019 Chlamydia trachomatis infection of lower genitourinary sites 02/17/2014 Migraine Other general counseling and advice for contraceptive management 09/20/2022 CURRENT HEALTH STATUS Medications: No current facility-administered medications for this encounter. Allergies and drug reactions: Latex HOME MEDICATIONS Medications Prior to Admission Medication Sig Dispense Refill Last Dose Nitrofurantoin&Nit. Macrocryst 100 mg capsule Take 1 capsule by mouth in the morning and 1 capsule in the evening. 10 capsule 0 ferrous sulfate (IRON, FERROUS SULFATE,) 325 mg (65 mg iron) tablet Take 1 tablet by mouth in the morning. 30 tablet 5 vit 47-fjnl-nimsv-dha (SELECT-OB + DHA) 29 mg iron-1 mg -250 mg combo pack Take 1 combo pack daily 60 Each 10 SOCIAL HISTORY Tobacco History: Social History Tobacco Use Smoking Status Never Smokeless Tobacco Never Drug History: Social History Substance and Sexual Activity Drug Use No Alcohol History: Social History Substance and Sexual Activity Alcohol Use No Alcohol/week: 0.0 standard drinks of alcohol FAMILY HISTORY Family History Problem Relation Age of Onset Diabetes Maternal Grandmother Hypertension Maternal Grandmother Diabetes Paternal Grandmother Pancreatic Cancer Paternal Grandmother No Significant Medical Problems Mother No Significant Medical Problems Father No Significant Medical Problems Sister No Significant Medical Problems Brother Arthritis NoFHx Asthma NoFHx defects NoFHx Breast Cancer NoFHx Colon Cancer NoFHx Uterine Cancer NoFHx Cancer NoFHx Ovarian Cancer NoFHx Depression NoFHx Genetic NoFHx Heart NoFHx High cholesterol NoFHx Mental retardation NoFHx Neurological NoFHx Psychiatry NoFHx Other - see comments NoFHx Osteoporosis NoFHx REVIEW OF SYSTEMS General: negative Skin: negative HEENT: negative Neck: negative HEME: negative Resp: negative Cardio: negative GI: negative : (+) Ctx Endo: negative Neuro: negative Back: negative JAUN: negative Psych: negative VITAL SIGNS BP: (114-128)/(68-75) Temp: [36.9 ?C (98.4 ?F)-36.9 ?C (98.5 ?F)] Temp source: Axillary (09/10 2229) Pulse: [82-88] Resp: [16-18] SpO2: [97 %-100 %] Height: [162.6 cm (5' 4")] Weight: [86.2 kg (190 lb)-87.3 kg (192 lb 8 oz)] BMI (calculated): [32.61-33.04] PHYSICAL EXAMINATIONS General: patient alert and in no acute distress HEENT: symmetric, negative for masses Lungs: unlabored breathing Breast: deferred Cardiology: peripheral pulses intact and regular Abdomen: soft, non-tender, non-distended, no liver, spleen or abnormal masses palpated and Gravid Extremities: no clubbing, cyanosis, or edema Neuro: patient moving all extremities, no facial droop : SVE /-2 REVIEW OF LABORATORY, PATHOLOGY, AND RADIOLOGY DATA Lab results: Type & Screen Lab Results Component Value Date/Time IABORH O POSITIVE 08/28/2023 11:39 AM IAT Positive 08/28/2023 11:39 AM Serologies Lab Results Component Value Date/Time VZVIGG Positive 03/15/2023 02:58 PM HIVMULTIPLEX Non-reactive 02/12/2018 03:09 PM RUBG Equivocal 03/15/2023 02:58 PM RUBG POSITIVE 11/28/2011 03:54 PM SYPIGG Non-reactive 07/17/2023 12:00 PM HBSAG Negative 03/15/2023 02:58 PM HBSAG 0.13 03/15/2023 02:58 PM Chlamydia Lab Results Component Value Date/Time VCAA Negative 07/31/2023 12:16 PM VCAA NEGATIVE 02/17/2014 01:39 PM Group B Strep Lab Results Component Value Date/Time CGB Negative 08/28/2023 11:33 AM GTT Lab Results Component Value Date/Time GLUF 100 09/20/2022 09:28 AM CWCM4TD 101 (L) 07/17/2023 12:00 PM YXED7MU 114 (L) 08/01/2011 09:43 AM GLU3H 61 (L) 01/17/2022 11:32 AM GLU3H 103 08/01/2011 11:43 AM CBC Lab Results Component Value Date/Time HGB 10.1 (L) 08/28/2023 11:39 AM HGB 10.6 (L) 06/26/2013 04:59 PM HCT 33.3 (L) 08/28/2023 11:39 AM HCT 36.4 06/26/2013 04:59 PM PLT 235 08/28/2023 11:39 AM PLT 383 (H) 06/26/2013 04:59 PM There are no hospital problems to display for this patient. Present on Admission: None Placenta Accreta Screening Prior ? : Yes Prior Uterine Surgery?: No Placenta low lying/previa in current ? : No Ultrasound suspicion of PASD in current ?: No Screening outcome: A positive screening outcome indicates a history of prior delivery or prior uterine surgery, AND the presence of either a placenta low lying/previa or ultrasound suspicion of PASD in the current . Negative screening. ASSESSMENT AND PLAN Domenica Hendrix is a 33 year old at 38w4d by d/u(13) who presents for Ctx. Ctx - SVE: 5 / 90 % / -2 - Contractions (number / 10 minute): 2 - Plan: Admit for TOLAC due to advanced cervical dilation. Prev x1 x 1 - 2020- PCS due to Breech presentation at [facility]; documented LTCS - Desires TOLAC Multiple Sclerosis - Dx 2020 - Last flare 09/2022 - Followed by [facility] Neurology - Not on meds, per neurology note, pt prefers to manage with diet ad herbal remedies - s/p MFM 04/05 - Currently asymptomatic Anti Jka and Anti s Positive - s/p MFM - partner O+/- - Had monthly titers (1:16) until 24w then q2w Plan - T&S ordered Antepartum course reviewed - 1 h 101, sero negative, Requiv, VZVimmune, O positive/IAT positive, GBS unk, Pap - needs 6wk PP - H/H, plt: 10.7/34.8, 226 on 09/11/23 - [facility] F[facility] - Presentation on admission: vertex - posterior placenta - EFW: 3175 g 32%tile - FHT reactive and reassuring - Normal anatomy scan D/w Dr. Too Rubi MD Associated attestation - Elbert Boston MD - 09/12/2023 5:34 AM CDT Admitted for delivery, active labor at 38 weeks. OG-OBSTETRICS & GYNECOLOGY [facility] - Health Procedure Notes Date/Time Note Provider Source 2023-09-12 02:10:34 Associated Order(s): Central Neuraxial Block Central Neuraxial Block Date/Time: 09/12/2023 12:05 AM Performed by: Maryam Beard MD Authorized by: Larry Blum MD End Time: 09/12/2023 12:45 AM Reason for Block: Labor analgesia, OB request and Patient request Staff: Anesthesiologist: Larry Blum MD Resident/ANGER CONTROL COUNSELOR: Maryam Beard MD Performed by: resident/ANGER CONTROL COUNSELOR Preanesthetic Checklist: patient identified, IV checked, risks and benefits explained, monitors and equipment checked, timeout performed, pre-op evaluation, surgical consent, site marked, ob/surgical consent approval, ob/surgical consent verified and anesthesia consent Procedure: Type of Neuraxial: Epidural Epidural Description: 1st attempt Sterility Prep cap, drape, gloves, hand hygiene and mask Sedation Level no sedation Patient Position: sitting Prep: Betadine Monitoring: continuous pulse ox, heart rate / toco and NIBP Location: lumbar (1-5) Lumbar: L4-L5 Approach: midline Technique: SHARI saline Guidance with: landmark technique} Epidural/Spinal Nathrop and/or Catheter: Epidural/Spinal Kit: BBun Needle Type: Tuohy Needle Gauge: 17 G Needle Length: 3.5 in (8.89 cm) Needle Insertion Depth: 4 Catheter Type: multiport Catheter Size: 19 G Catheter at Skin Depth: 9 Number of Attempts: 2 Test Dose: lidocaine 1.5% with epinephrine 1-to-200,000 and negative Dose: 5 cc Catheter Securement Method: clear occlusive dressing and liquid medical adhesive Assessment: Block Outcome: a full evaluation is pending and patient tolerated procedure well Procedure Assessment: patient tolerated procedure well with no complications Notes: Timeout performed. Patient prepped with betadine x3 and draped. Local anesthetic infiltrated in skin. Needle inserted to depth of 4cm, attempt x2 (initial attempt patient felt catheter was left sided and desired replacement), negative aspiration x3, test dose given and negative, catheter secured at 9cm, patient laid down and remained HDS. There was no dural puncture. PCEA pump and button explained, fall precautions given. Settings: 10ml/hr and bolus of 4mL given. Level to be assessed. AN-ANESTHESIOLOGY [facility] Notes Date/Time Note Provider Source [facility]2025-07-07 00:00:00 [facility]2025-04-07 00:00:00 [facility]2024-09-20 12:34:39 MRI ordered for monitoring status of MS or progression. Argelia Tobias MD, PhD. [facility] HospitalBbybnk8942-16-01 11:01:29 Patient calling requesting to have MRI order placed as previously discussed with provider now that patient has active insurance coverage. [facility] ClinicKcphar5084-[facility] 00:00:00 Clint Rodriguez [facility]2024-07-26 09:42:07 I called the patient to schedule with Dr Rocha patient stated she will go to the ER first due to that's what Dr Flannery told her to do. Then depending on how that goes she will call back to get scheduled. Hal MurilloHighlands-Cashiers HospitalOjdgxe7823-65-96 11:34:33 Domenica Hendrix is a 33 year old female Pt is calling to dillon her STAT referral to DR Rocha Please advise Anna Jorge [facility]2024-07-17 09:40:41 Called patient and told her eye steroid drop will not truly help if this is a recurrent optic neuritis.She will be back home in about one week, and recommended to see kitchen manager EROS when she is back. Argelia Tobias MD, PhD. PNNEUROLOGY [facility]2024-07-16 09:24:29 Images from the original note were not included. HU: 10/19/[address] Tobias for Visit Diagnoses MS (multiple sclerosis) G35 Disturbance of skin sensation R20.9 NOV: 05/02/[address] Tobias Patient transferred from [facility]. She states she was seen in the ER and admitted for blurry vision in right eye. ADMIT DATE: 10/27/2023 DISCHARGE DATE: 10/28/2023 14:29. She was seen by Dr. Rocha in the hospital for neurology but was not seen by ophthalmology due to she had already been discharged when they arrived. She was given IV steroids and oral steroids upon release. Told it might be an MS flare up. Does not feel like vision has improved. She is notifying Dr. Tobias per hospital instructions. She is currently in [place] for work and wants to know if steroid eye drops that were discussed would be helpful. Local pharmacy close to her: [place] [id number] Will forward encounter to Dr. Tobias. Akila Singletary [facility] [id number] 09:11:18 Domenica Hendrix is a 33 year old female Pt was admitted over the weekend to ED for blurry vision on her right eye. She said they told her to let Dr Tobias know about it and they gave her steroids. She says she is still having the blurry vision. She also wants to discuss being prescribed steroid eye drops as well for her blurry vision. Was able to warm transfer to nurse Anna PalomoAvita [facility] [id number] 11:39:38 Patient discharging back home Jessica Montengero [facility] CampusIhqucx6675-07-19 11:39:15 Problem: Falls, Risk of Goal: Absence of falls Outcome: Resolved Problem: Discharge Planning Goal: Adequate for discharge Outcome: Resolved Goal: Effective communication Outcome: Resolved Problem: Pain Goal: Control of pain at or below patient's documented comfort goal Outcome: Resolved Goal: Reduction in pain sensation Outcome: Resolved [facility] [id number] 00:41:47 Problem: Falls, Risk of Goal: Absence of falls Outcome: Progressing as expected Problem: Discharge Planning Goal: Adequate for discharge Outcome: Progressing as expected Goal: Effective communication Outcome: Progressing as expected Problem: Pain Goal: Control of pain at or below patient's documented comfort goal Outcome: Progressing as expected Goal: Reduction in pain sensation Outcome: Progressing as expected Yasmeen Lim [facility] HospitalXcmtcg6684-02-06 23:19:35 Patient transferred to [facility] for diagnosis of burring of vision. Patient agrees to transfer/admit plan and verbalized understanding of plan of care. Patient awake alert, oriented, resp reg unlabored, skin w/d PIV patent, no s/s infiltration noted, No adverse reaction to medications given while in ED. Report given to [facility] EMS personnel Belia Olivo [facility] [id number] 22:37:56 Called [facility] @2238 ETA is 15-20min. Alexandra DhaliwalWayne Healthcare Main CampusAdtjtq0202-56-50 20:17:40 Pt to ED [place] blurred vision and pain in R eye starting when she woke up. Hx of MS. States she is currently seeing her neurologist for eye floaters and was advised to come to the ED for similar sxs. Denies trauma to eye. Denies weakness, changes in speech, confusion. Mary Desouza [facility] HospitalMffser3341-02-72 20:08:00 [facility] Emergency Department Note Patient Name: Domenica Hendrix Date of : 1990 33 year old female Treatment Room: [place] [address] Primary Care Physician: Maddie Medina Patient Escorted by: Self [9] Mode of Arrival: Personal means [1] EMS Treatment Prior to ED Arrival: HUMAN RESOURCES ADVISOR treatment: Medication (comment) HUMAN RESOURCES ADVISOR treatment comments: tylenol @ 1000 Travel and Exposure Screening: Symptoms Does patient have any of these symptoms?: (not recorded) Exposure Screening Has patient had contact with someone with a communicable disease in the last month?: (not recorded) Diseases exposed to:: (not recorded) Is Patient ?: (not recorded) Exposure Date: (not recorded) Chief Complaint: Chief Complaint Patient presents with Blurred Vision History of Present Illness: Domenica Hendrix is a 33 year old female who presents to the ED with blurring of vision that began this AM. Pt reports that she started with right eye pain that began yesterday rated at 5/10. Touching said eye causes more pain. Pt reports that she has had floaters to bilateral eyes for at last 2020 and has been persistent without change today. Has had clear rhinorrhea for the past two to three days. Denies any urinary symptoms. No headaches. No focal weakness. No diplopia. No eye discharge. No trauma. Pt has an appointment with her Neurologist Dr Tobias in [facility] for the floaters but has not been diagnosed with Optic neuritis. No flashes per pt. Pt had a complete eye exam for her glasses and no optic neuritis was found three weeks ago. Pt is currently on her menstrual cycle and is not the 1 month old . 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: No Eye Problem Location: Right eye Severity: Mild Onset quality: Gradual Duration: 2 days Timing: Constant Progression: Unchanged Chronicity: New Context: not burn, not chemical exposure, not contact lens problem, not direct trauma, not foreign body, not using machinery, not scratch, not smoke exposure and not UV exposure Relieved by: None tried Worsened by: Nothing Ineffective treatments: None tried Associated symptoms: blurred vision and scotomas Associated symptoms: no crusting, no decreased vision, no discharge, no double vision, no facial rash, no headaches, no inflammation, no itching, no nausea, no numbness, no photophobia, no redness, no swelling, no tearing, no tingling, no vomiting and no weakness Risk factors: no conjunctival hemorrhage, no exposure to pinkeye, no previous injury to eye, no recent herpes zoster and no recent URI Past Medical History/Immunizations: Past Medical History: Diagnosis Date Abnormal maternal glucose tolerance, antepartum 11/25/2019 Chlamydia trachomatis infection of lower genitourinary sites 02/17/2014 Migraine Other general counseling and advice for contraceptive management 09/20/2022 MS diagnosed in 20-21 BV during last . Was treated for same but has not had recheck. Sep 12 2023 Tetanus received in last 5 years: Yes Childhood immunizations: Up-to-date Allergies: Allergies Allergen Reactions Latex Rash and Swelling Past Social History: Tobacco Use Never smoked or used smokeless tobacco. Vaping Use Never used Alcohol Use No. Drug Use No. Sexual Activity Sexually active; Partners: Male; Control/Protection: None. Past Surgical History: Past Surgical History: Procedure Laterality Date SECTION N/A 05/13/2020 Surgeon: Susanne Pedraza MD; Location: Labor and Delivery - [facility] CONTINUOUS MONITORING (EXTERNAL) 10/10/2011 EXTERNAL CEPHALIC VERSION N/A 05/13/2020 Surgeon: Susanne Pedraza MD; Location: Labor and Delivery - [place] [facility] CARE ANTEPARTUM VAG DLVR & 10/10/2011 Review of Systems: Review of Systems Constitutional: Negative. HENT: Negative. Eyes: Positive for blurred vision, pain and visual disturbance. Negative for double vision, photophobia, discharge, redness and itching. Respiratory: Negative. Breasts: Negative. Cardiovascular: Negative. Gastrointestinal: Negative. Negative for nausea and vomiting. Genitourinary: Negative. Musculoskeletal: Negative. Skin: Negative. Neurological: Negative. Negative for tingling, weakness, numbness and headaches. Psychiatric/Behavioral: Negative. All other systems reviewed and are negative. Endocrine: Endocrine negative Physical Exam: ED Triage Vitals [10/27/232020] Weight 77.8 kg (171 lb 9.6 oz) Actual or estimated Actual Height 1.626 m (5' 4") BP 109/76 Pulse 82 Resp 16 Temp 37.2 ?C (99 ?F) Temp source Oral SpO2 100 % Measured on Room air Physical Exam Vitals and nursing note reviewed. Constitutional: General: She is not in acute distress. Appearance: Normal appearance. She is normal weight. She is not ill-appearing or toxic-appearing. HENT: Head: Normocephalic and atraumatic. Right Ear: Tympanic membrane, ear canal and external ear normal. Left Ear: Tympanic membrane, ear canal and external ear normal. Nose: Nose normal. No congestion or rhinorrhea. Mouth/Throat: Mouth: Mucous membranes are moist. Pharynx: Oropharynx is clear. No oropharyngeal exudate or posterior oropharyngeal erythema. Eyes: General: No scleral icterus. Right eye: No discharge. Left eye: No discharge. Extraocular Movements: Extraocular movements intact. Conjunctiva/sclera: Conjunctivae normal. Pupils: Pupils are equal, round, and reactive to light. Cardiovascular: Rate and Rhythm: Normal rate and regular rhythm. Pulses: Normal pulses. Heart sounds: Normal heart sounds. No murmur heard. Pulmonary: Effort: Pulmonary effort is normal. No respiratory distress. Breath sounds: No stridor. No wheezing, rhonchi or rales. Chest: Chest wall: No tenderness. Abdominal: General: Abdomen is flat. Bowel sounds are normal. There is no distension. Palpations: There is no mass. Tenderness: There is no abdominal tenderness. There is no right CVA tenderness, left CVA tenderness, guarding or rebound. Hernia: No hernia is present. Musculoskeletal: General: No swelling, tenderness, deformity or signs of injury. Cervical back: Normal range of motion. No rigidity or tenderness. Skin: Capillary Refill: Capillary refill takes less than 2 seconds. Coloration: Skin is not jaundiced or pale. Findings: No bruising, erythema, lesion or rash. Neurological: General: No focal deficit present. Mental Status: She is alert and oriented to person, place, and time. Mental status is at baseline. Cranial Nerves: No cranial nerve deficit. Sensory: No sensory deficit. Motor: No weakness. Coordination: Coordination normal. Gait: Gait normal. Deep Tendon Reflexes: Reflexes normal. Psychiatric: Mood and Affect: Mood normal. Behavior: Behavior normal. Thought Content: Thought content normal. Judgment: Judgment normal. Radiology: No orders to display Lab Results: Lab Results URINALYSIS - Abnormal Result Value Ref Range APPEARANCE Hazy (*) Clear COLOR Red (*) Yellow PH 6.0 4.8 - 8.0 SP GRAVITY 1.024 1.003 - 1.030 GLU U QUAL Normal Normal BLOOD 3+ (*) Negative KETONES Negative Negative PROTEIN 100 mg/dL (*) Negative UROBILIN Normal Normal BILIRUBIN Negative Negative NITRITE Negative Negative LEUK GISELLE Negative Negative RBC/HPF >182 (*) 0 - 3 HPF WBC/HPF 6 (*) 0 - 5 HPF BACTERIA Negative Negative MUCOUS Slight (*) Negative LPF SQ EPITH 6 HPF Orders and Treatments: Orders Placed This Encounter Procedures Urinalysis No orders of the defined types were placed in this encounter. First Provider Eval: ED Events Date/Time Event User Comments 10/27/232032 Medical Screening Begins DARLYN BANSAL MD -- 10/27/232032 First Provider Evaluation DARLYN BANSAL MD -- ED COURSE Diagnosis/Impression as of 10/27/232236 Blurring of vision - CONCERN FOR OPTIC NEURITIS Hx of multiple sclerosis Procedures: Procedures MDM: Medical Decision Making Domenica Hendrix is a 33 year old female with hx of Multiple Sclerosis who presents to the ED with OD pain and blurring of vision Problems Addressed: Blurring of vision: acute illness or injury Details: Pt with hx of Multiple sclerosis, blurring of vision concerning for Optic neuritis Hx of multiple sclerosis: chronic illness or injury Amount and/or Complexity of Data Reviewed External Data Reviewed: notes. Labs: ordered. Decision-making details documented in ED Course. Discussion of management or test interpretation with external provider(s): Discussed with Dr Mejia, Ophthalmology Faculty internet marketing consultant regarding presenting complaints. Pt has nellie accepted for transfer to [facility] for Ophthalmology eval Also discussed presentation with Dr Rocha, Neurology faculty who has accepted pt for admission Risk Decision regarding hospitalization. Flowsheet Documentation: Scoring Tools: No data recorded Disposition/Condition: ED Disposition ED Disposition Transfer - [facility] to IP/Obs Condition -- Comment -- Discharge Medications: Patient's Medications START taking these medications No medications on file CONTINUE taking these medications which have NOT CHANGED DOCUSATE 100 MG CAPSULE Take 2 capsules by mouth once daily as needed for Constipation. FERROUS SULFATE 325 MG (65 MG IRON) TABLET Take 1 tablet by mouth in the morning. IBUPROFEN 800 MG TABLET Take 1 tablet by mouth every 8 (eight) hours as needed (pain). Take with food or milk. [id number] FUM-FOLIC 27 MG IRON- 1 MG FOLIC TABLET Take 1 tablet by mouth in the morning. START taking Modified Medications as Prescribed No medications on file STOP taking these medications No medications on file Follow-up: Electronically signed by: Darlyn Bansal MD 10/27/23 [address] [place] [id number] 17:45:26 Patient dc home. Follow up with pcp if needed. Verbalized understanding. Signed paper work. Conner Coyle RN[place] [id number] 17:20:15 Patient to US for doppler. [place] [id number] 16:51:21 Pt to ED co swelling to L leg. Reports having a vaginal delivery on Sunday. Presents with trace swelling to L lower leg. Denies headache. Hx of MS and anemia. No hx of preeclampsia. Mary Desouza [place] [id number] 16:43:00 Images from the original note were not included. [facility] Emergency Department Note Patient Name: Domenica Hendrix Date of : 1990 33 year old female Treatment Room: Room/bed info not found Primary Care Physician: Maddie Medina Patient Escorted by: Family [5] Mode of Arrival: Personal means [1] EMS Treatment Prior to ED Arrival: Travel and Exposure Screening: Symptoms Does patient have any of these symptoms?: (not recorded) Exposure Screening Has patient had contact with someone with a communicable disease in the last month?: (not recorded) Diseases exposed to:: (not recorded) Is Patient ?: (not recorded) Exposure Date: (not recorded) Chief Complaint: Chief Complaint Patient presents with LEG SWELLING History of Present Illness: Domenica Hendrix is a 33 year old female presents today with a chief complaint of LEG SWELLING. Pt with leg swelling that started today after recent vaginal delivery after section (09/11/2023 - 09/13/2023). Denies any shortness of breath, fever, calf pain, chest pain, headache, n/v/d, abdominal pain. Past Medical History/Immunizations: Past Medical History: Diagnosis Date Abnormal maternal glucose tolerance, antepartum 11/25/2019 Chlamydia trachomatis infection of lower genitourinary sites 02/17/2014 Migraine Other general counseling and advice for contraceptive management 09/20/2022 Allergies: Allergies Allergen Reactions Latex Rash and Swelling Past Social History: Tobacco Use Never smoked or used smokeless tobacco. Vaping Use Never used Alcohol Use No. Drug Use No. Sexual Activity Sexually active; Partners: Male; Control/Protection: None. Past Surgical History: Past Surgical History: Procedure Laterality Date SECTION N/A 05/13/2020 Surgeon: Susanne Pedraza MD; Location: Labor and Delivery - [facility] CONTINUOUS MONITORING (EXTERNAL) 10/10/2011 EXTERNAL CEPHALIC VERSION N/A 05/13/2020 Surgeon: Susanne Pedraza MD; Location: Labor and Delivery - [place] [facility] CARE ANTEPARTUM VAG DLVR & 10/10/2011 Review of Systems: Review of Systems Cardiovascular: Positive for leg swelling. Physical Exam: ED Triage Vitals [09/14/23 1653] Weight 83 kg (182 lb 14.4 oz) Actual or estimated Actual Height 1.626 m (5' 4") BP 108/76 Pulse 73 Resp 19 Temp 36.7 ?C (98.1 ?F) Temp source Oral SpO2 100 % Measured on Room air Physical Exam Vitals and nursing note reviewed. Constitutional: General: She is not in acute distress. Appearance: Normal appearance. She is not ill-appearing or diaphoretic. HENT: Head: Normocephalic. Mouth/Throat: Mouth: Mucous membranes are moist. Eyes: Extraocular Movements: Extraocular movements intact. Cardiovascular: Rate and Rhythm: Normal rate and regular rhythm. Pulmonary: Effort: Pulmonary effort is normal. No respiratory distress. Breath sounds: No wheezing. Abdominal: General: There is no distension. Palpations: Abdomen is soft. Tenderness: There is no abdominal tenderness. There is no guarding. Musculoskeletal: General: No swelling. Right lower leg: No edema. Left lower leg: No edema. Comments: No calf tenderness. Skin: General: Skin is warm and dry. Neurological: Mental Status: She is alert. Mental status is at baseline. Psychiatric: Mood and Affect: Mood normal. Behavior: Behavior normal. Radiology: No orders to display Lab Results: Lab Results - No data to display EKG: If EKG completed, see Procedure Note. Orders and Treatments: No orders of the defined types were placed in this encounter. No orders of the defined types were placed in this encounter. First Provider Eval: ED Events Date/Time Event User Comments 09/14/231651 First Provider Evaluation GABRIELLA CEBALLOS -- 09/14/231651 Medical Screening Begins GABRIELLA CEBALLOS -- ED COURSE Diagnosis/Impression as of 09/14/23 174 Left leg swelling Procedures: Procedures MDM: Medical Decision Making Domenica Hendrix is a 33 year old female presents today with left leg swelling after recent . Exam without any findings. Ultrasound report at bottom of note. Negative. Discharge home. differential diagnosis: DVT, venous insufficiency Problems Addressed: Left leg swelling: complicated acute illness or injury Amount and/or Complexity of Data Reviewed Radiology: ordered. Decision-making details documented in ED Course. Flowsheet Documentation: Scoring Tools: No data recorded Disposition/Condition: ED Disposition ED Disposition Disch - Home Condition Stable Comment -- Discharge Medications: Patient's Medications START taking these medications No medications on file CONTINUE taking these medications which have NOT CHANGED DOCUSATE 100 MG CAPSULE Take 2 capsules by mouth once daily as needed for Constipation. FERROUS SULFATE 325 MG (65 MG IRON) TABLET Take 1 tablet by mouth in the morning. IBUPROFEN 800 MG TABLET Take 1 tablet by mouth every 8 (eight) hours as needed (pain). Take with food or milk. [id number] FUM-FOLIC 27 MG IRON- 1 MG FOLIC TABLET Take 1 tablet by mouth in the morning. START taking Modified Medications as Prescribed No medications on file STOP taking these medications No medications on file Follow-up: Electronically signed by: Gabriella Ceballos MD 09/14/231740 [facility] - [id number] 09:33:07 Problem: Falls, Risk of Goal: Absence of falls Outcome: Adequate for discharge Problem: Discharge Planning - Goal: Adequate for discharge Outcome: Adequate for discharge Goal: Mood stable Outcome: Adequate for discharge Problem: Breast-feeding - Ineffective Goal: Effective breast-feeding Outcome: Adequate for discharge Problem: Pain Goal: Control of pain at or below patient's documented comfort goal Outcome: Adequate for discharge Goal: Reduction in pain sensation Outcome: Adequate for discharge T [id number] 09:18:20 Patient: Domenica Hendrix Procedure Summary Date: 09/12/23 Room / Location: Anesthesia Start: 6 Anesthesia Stop: 09/13/23917 Procedure: CENTRAL NEURAXIAL BLOCK Diagnosis: Scheduled Providers: Responsible Provider: Hector Segal MD Anesthesia Type: Epidural ASA Status: 2 Anesthesia Type: Epidural Last vitals BP Temp Pulse Resp SpO2 There were no known notable events for this encounter. Anesthesia Post Evaluation Patient location during evaluation: PACU Patient participation: complete - patient participated Level of consciousness: awake and alert Pain score: 0 Pain management: satisfactory to patient Airway patency: patent Cardiovascular status: acceptable and blood pressure returned to baseline Respiratory status: acceptable Hydration status: acceptable RA [facility] AN-ANESTHESIOLOGY ANESTHESIOLOGISTAv[facility] [id number] 08:49:21 Post-Anesthesiology Follow-Up Note Domenica Hendrix is a 33 year old female with the following past medical history: Past Medical History: Diagnosis Date Abnormal maternal glucose tolerance, antepartum 11/25/2019 Chlamydia trachomatis infection of lower genitourinary sites 02/17/2014 Migraine Other general counseling and advice for contraceptive management 09/20/2022 and who is status post vaginal delivery post- day #1. The anesthetic used was epidural. There was not an unintentional dural puncture. Patient is examined. Vital Signs: Patient Vitals for the past 24 hrs: BP Temp Temp src Pulse Resp SpO2 09/13/23 0753 113/71 36.5 ?C (97.7 ?F) -- 92 18 98 % 09/13/23 0102 101/60 36.8 ?C (98.3 ?F) -- 72 18 97 % 09/12/23 2107 92/69 36.7 ?C (98 ?F) -- 88 18 97 % 09/12/23 1552 105/64 36.9 ?C (98.4 ?F) Oral 89 18 98 % 09/12/23 1226 98/60 36.7 ?C (98.1 ?F) Oral 67 18 96 % The patient has been getting up and ambulating. The patient has voided. The patient reports no headache. The patient reports no back pain. There is tenderness over the neuraxial insertion site. There is not paraspinous muscle tenderness. Patient counseled that soreness over neuraxial injection site is common and expected to resolve in 1-2 weeks. Advised to seek medical attention if worsens, persists or is associated with neurologic deficits. The patient reports no neurological deficits. The patient reports no nausea or vomiting. The patient is satisfied with her anesthetic. The patient does not require further followup. Wayne Villar MD 09/13/2023 8:49 AM AN-ANESTHESIOLOGYAv[facility] [id number] 15:48:32 Problem: Falls, Risk of Goal: Absence of falls Outcome: Progressing as expected Problem: Discharge Planning - Goal: Adequate for discharge Outcome: Progressing as expected Goal: Mood stable Outcome: Progressing as expected Problem: Breast-feeding - Ineffective Goal: Effective breast-feeding Outcome: Progressing as expected [facility] [id number] 06:05:42 Problem: Falls, Risk of Goal: Absence of falls Outcome: Progressing as expected Problem: Discharge Planning - Goal: Adequate for discharge Outcome: Progressing as expected Goal: Mood stable Outcome: Progressing as expected Problem: Breast-feeding - Ineffective Goal: Effective breast-feeding Outcome: Progressing as expected Donnie Esposito [facility] - [id number] 02:52:49 DELIVERY BY SPONTANEOUS VAGINAL DELIVERY Delivery Date: 09/12/2023 Delivery Time: 2:34 AM Delivery Summary The patient was admitted to the Labor & Delivery unit for TOLAC at 38w4d due to advanced cervical dilation. Delivery Physician: Rosalee Bush MD Java Project Manager Physician: Zan Perez MD OB Faculty: Elbert Boston MD Intrapartum Anesthesia/Analgesia: Epidural Mode of Delivery: Delivery of dyson fetus with cephalic presentation Fetus Spontaneous vaginal delivery of head with cephalic position, occipital anterior. As the head crowned and distended the perineum, no episiotomy was performed. A blue towel was used to protect the perineum as the head crowned and delivered. The other hand was used to exert pressure on the occiput to control the delivery of the head. The perineum was pushed with a towel-draped hand as the head and mouth was delivered over the perineum. The head was allowed to rotate externally to achieve natural body posture. Examination of neck revealed no umbilical cord. The shoulder was delivered by gentle downward traction applied to head and downward traction for the delivery of anterior shoulder. This was followed by upward traction with delivery of posterior shoulder and body. After the delivery of , bulb suction was performed from ororpharynx and nostril with removal of clear amniotic fluid. A normal, male was delivered. The umbilical cord was double clamped, cut and the infant was handed off the field to the circulating nurse Placenta Placenta was delivered spontaneously while the abdominal hand lifted the uterus cephalad and other hand keeping the umbilical cord slightly taut. Laceration Laceration Repair: 1st degree perineal laceration repaired with single suture. Fourth Stage Fourth stage of labor was managed by uterine massage with abdominal hand and infusion of 30u pitocin at a rate of 300cc/hr mixed with intravenous fluid. EBL: 0 Complications: None Weight: 3200 g 1 Minute 5 Minute 10 Minute Totals: 8 9 Associated attestation - Elbert Boston MD - 09/12/2023 5:35 AM CDT Present for delivery. OG-OBSTETRICS & GYNECOLOGYAv[facility] [id number] 02:03:39 Name/ MRN / Age / Gender: Domenica Hendrix, [id number] 33 year old female BMI: Estimated body mass index is 33.04 kg/m? as calculated from the following: Height as of this encounter: 1.626 m (5' 4"). Weight as of this encounter: 87.3 kg (192 lb 8 oz). Allergies: Latex Last Vitals: BP Readings from Last 1 Encounters: 09/12/23 96/55 Pulse Readings from Last 1 Encounters: 09/12/23 96 SpO2 Readings from Last 1 Encounters: 09/12/23 97% Date of Surgery: 09/12/2023 Surgeon: * No surgeons listed * Procedure: CENTRAL NEURAXIAL BLOCK OR Location: [facility] OUT OF OR - OR LOCATION Anesthesia Preop Eval (physical exam) Anesthesia Preop: Chart Review and Jiye-bi-Ebmf NPO Status Verified Clear Liquids: > 2 Hours Anesthesia History (+) Hx of PDPH (2022) Previous Anesthetics/Airways Cardiovascular Negative Cardiac ROS METS: 4 (-) Chest pain with 1-2 flights of stairs (-) Hypertension Pulmonary (-) Asthma (-) Tobacco use Neuro/Musculoskeletal Comments: Multiple Sclerosis - Dx 2020 - Last flare 09/2022 - Followed by [facility] Neurology - Not on meds, per neurology note, pt prefers to manage with diet ad herbal remedies - s/p MFM 04/05 - Currently asymptomatic (-) CVA(-) Seizures (+) Neuromuscular Disease and Multiple Sclerosis (+) Obesity GI/Hepatic (-) GERD (-) Liver disease Hematology Comments: anti Jka and anti s-s/p MFM monthly titers (1:16) until 24w then q2w, (JKA <1 anti-s <1 08/27), partner O+/- R e (-) Anemia (-) Coagulopathy (+) Previous positive antibody screen Renal (-) Renal disease Skin (+) Current IV access Endo/Other (-) Diabetes Mellitus (-) Hyperthyroidism (-) Hypothyroidism Other (-) Tobacco use 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 Hold on DOS. Phentermine: Alert [facility] anesthesiologist SGLT2 Inhibitors: "gliflozins" to be held for 3 days prior to elective surgeries GLP1 Agonosit: stop 7 days prior to surgery MAC Cases: Continue taking FEDERICO inhibitors and ARBs ASA Classification ASA: 2 Labs: Chemistry 08/28/2023 CBC 09/11/2023 133 (L) 104 7 96 9.68 10.7 (L) 226 3.9 24 0.36 (L) 34.8 (L) eGFR: 139.4 Date: 08/28/2023 ANC: 7.61 (H) Date: 09/11/2023 LFTs 08/28/2023 Coags AST: 28 AP: 125 (H) Prot: 6.6 Ca: 8.7 PT: - Date: - ALT: 18 T Julien: 0.9 Alb: 3.5 PTT: - Date: - PO4: - Date: - INR: - Date: - Cardiac Endocrine & other pBNP: - Date: - A1C: 5.6 Date: 03/15/2023 Trop I: - Date: - POCT A1C: - Date: - CK: - Date: - TSH: - Date: - CKMB: - Date: - FT4: - Date: - LDL: - Date: - Lact: - Date: - Procal: - Date: - Respiratory -|-|-|-|- D-dimer: - ABG Date: - Date: - Miscellaneous Type and Screen: O POSITIVE Antibody: Positive Date: 09/11/2023 POCT : Positive Date: 03/15/2023 Current Medications: No outpatient medications have been marked as taking for the 09/11/23 encounter (Hospital Encounter). Previous Surgeries: Past Surgical History: Procedure Laterality Date SECTION N/A 05/13/2020 Surgeon: Susanne Pedraza MD; Location: Labor and Delivery - [facility] CONTINUOUS MONITORING (EXTERNAL) 10/10/2011 EXTERNAL CEPHALIC VERSION N/A 05/13/2020 Surgeon: Susanne Pedraza MD; Location: Labor and Delivery - [facility] [place] [facility] CARE ANTEPARTUM VAG DLVR & 10/10/2011 Anesthesia Physical Exam General alert and oriented x 3 Neuro/Psych neurological Dental no notable dental hx Abdominal (+) obesity and gravid Airway Mallampati score:II TM distance:> 5 cm Neck ROM: full Mouth opening:normal (+) Normal facies Extremity Normal extremity Pulmonary pulmonary exam normal Other Cardiovascular cardiovascular exam normal Anesthesia Plan ASA Status: 2 Plan discussed during pre-op evaluation: General, Epidural, Spinal and CSE Anesthetic plan on DOS: Epidural Anesthesia plan discussed with: patient or telephone claims representative Post-Operative Analgesia: routine analgesia & antiemetics Recovery Plan: LDR Additional comments: AN-ANESTHESIOLOGY ANESTHESIOLOGISTAvita Health [facility] [id number] 23:26:17 Problem: Intrapartum process (including labor pain) Goal: Absence of or reduction of complications of labor Outcome: Progressing as expected Goal: Able to cope with pain Outcome: Progressing as expected Goal: Adequate to move to next level of care Outcome: Progressing as expected Goal: Reduction in pain sensation Outcome: Progressing as expected Problem: Falls, Risk of Goal: Absence of falls Outcome: Progressing as expected T [facility] [id number] 22:01:11 Domenica Hendrix is a 33 year old female arrives to ED with complaints of abdominal cramping that started this morning. Patient reports 38w, , sees [facility] drs, , reports pain increased within the last hour and pain happening about every 10 minutes. Patient AAOx4, RR E/U, NAD noted. Report given to L&D triage. Patient to L&D in WC with EDT, NAD noted. Karen Beckman RNAv[facility] [id number] 11:15:00 Images from the original note were not included. Venipuncture collection performed by clean technique on the right anticubitus. Total of 1 attempts were made. Slight pressure and a bandage/dressing were applied to the site(s). The patient experienced no complications. The following specimens were processed according to instructions and sent to [facility] laboratories LT BLUE Lt Green SST RED LAV 1 PPT DK GREEN (L) DK GREEN (S)/// Fibrosure set BLUE,SST & LAV [place] DK BLUE (K2) DK BLUE (S) ACD RST BLOOD CULTURE SET BLOOD CULTURE (AFB AND FUNGUS ) VERIFYNOW Monogram TYPENEX (LAV TOP) ARM BAND ON PATIENT Z plasma preservative tube (call lab for tube)ARUP Vasoactive Intestinal Peptide (call lab for tube)ARUP FEDEX ( NIPT) Thrombotic Risk Reflex Panel URINE URINE CULTURE APTIMA URINE STOOL [facility] - [id number] 11:15:00 Transfusion Medicine Service Immunohematology Interpretation ? Patient Name: Domenica Hendrix Date of Service: 08/14/23 CPT: 00339 ICD-10: Z01.84 Patient History: Domenica Hendrix is a 33 year old [id number] at 34w4d gestation seen for a routine visit. Estimated Date of Delivery: 09/21/23. Blood Bank Testing: ABO & Rh: O POSITIVE Transfusion History at [facility]: No Previous Antibodies Identified: Anti-Jka & Anti-s (08/09/2022) & antibody of undetermined specificity (07/17/2023) Antibodies Identified, Current Sample: Anti-Jka and anti-s RBC Phenotype Negative for: E, K, N, s, Jka RBC Phenotype Positive for: D, C, c, M, S, Fya, Fyb, Jkb, P1 Assessment: The patient is currently demonstrating an anti-Jka antibody and anti-s antibody. The patient has a history of anti-Jka and anti-s antibodies, and an antibody of undetermined specificity. Current or prior testing of the phenotype of the patient's red cells showed absence of Jka-antigen and s-antigen, a result compatible with an alloantibody. ? Information on the clinical significance of the patient's antibody and the frequency of antigen-negative compatible donor units is given below: Currently Demonstrating Anti-Jka and anti-s Anti-Jka (Campbell): % of ABO-compatible units that are Jka-negative = 23% Implication in hemolytic transfusion reaction?: NONE TO SEVERE Implicated in delayed hemolytic transfusion reaction?: YES Implication in hemolytic disease of the fetus/?: MILD TO MODERATE (RARE) Anti-Jka is a clinically significant antibody?against?the Campbell blood system. Anti-Jka is a common cause of delayed hemolytic transfusion?reactions? For female patients, anti-Jka?can cause hemolytic disease of the fetus and .?The current titer is less than 1.? The critical titer for anti-Jka antibody is 16.? Please monitor maternal titers throughout the . Anti-s: % of ABO-compatible units that are s-negative = 11% Implication in hemolytic transfusion reaction?: NONE TO MILD (RARE) Implicated in delayed hemolytic transfusion reaction?: NO Implication in hemolytic disease of the fetus/?: NONE TO SEVERE (RARE) Not Demonstrating at this Time Antibody of undetermined specificity An antibody of undetermined specificity commonly represent one of two possibilities: (1) the antibody is against low frequency antigens and can develop in individuals who were exposed to these antigens via prior transfusions or . The frequency of antigen-positive units that the patient would react to is low and thus, the large majority of units will be antigen negative and compatible for this patient. (2) the antibody is currently evolving and forming against a more common antigen target tested on our antibody panel, but the strength and consistency at the current time do not allow us to identify it. Upon repeat blood banking testing in the future, the antibody may reveal itself against a specific target. The clinical significance of an antibody of undetermined specificity (AUS) is unknown. It may represent nonspecific laboratory findings. However, given that these antibodies can be clinically significant, this positive antibody screen result will prompt physical crossmatches for compatibility before administering any RBC units in the future. In patients, the antibody must be followed throughout the in case it develops into a clinically significant antibody. Please monitor for signs of hemolytic disease of the fetus and . % of ABO-compatible units that are Jka-negative and s-negative = 2.53% Plan: 1. This patient will be issued ABO-RhD compatible, Jka- and s- negative, AHG crossmatch compatible RBCs for future routine transfusion. 2. Please allow 1-2 days to find compatible blood for this patient as it may have to be ordered from a reference blood bank. 3. If this patient will have an outpatient transfusion or elective surgical procedure where blood products may be required, please schedule this patient to get Typenex banding 1 - 2 days prior to their procedure. For assistance, please contact the Transfusion Medicine service.? Transfusion Medicine Resident: Xiomara Carrizales MD PAT-Anatomic Pathology & Clinical PathologyAvita Health System Ontario [id number] 13:12:39 Spoke with pt and clarified abx, pt currently taking ampicillin and metronidazole. Advised to continue taking those until completed. Does not need Nitrofurantoin at this time for UTI, since she is already taking the ampicillin. Pt v/u. Dell Haley [facility] [id number] 14:10:44 Copied from [facility] #[id number]. Topic: Clinical - Medical Advice >> Aug 07, 2023 2:10 PM Patient Tip Tester wrote: Patient has questions about RXs sent to pharmacy Asking if Nitrofurantoin&Nit. Macrocryst 100 mg capsule is the same as the ampicillin and metroNIDAZOLE Rxed by L&D. Please contact pt at [phone] (home) Nasrin HollinsAvita Health System Ontario [id number] 11:15:00 Age: [age] year old GA: 32w4d Patient has had 1 prior deliveries (CD). These deliveries were documented low transverse (LTCD) deliveries. If not documented, we believe that they were LTCD based on delivery circumstances and patient report. I counselled the patient regarding the risks and benefits of vaginal after delivery (). Benefits of successful include avoiding major abdominal surgery and lower rates of hemorrhage with fewer blood product transfusions, thromboembolism, and infection, and a shorter maternal hospital stay and recovery period than patients who have an elective repeat delivery (ERCD). For those considering future pregnancies, may decrease the risk of maternal consequences related to multiple CDs (eg, hysterectomy, bowel or bladder injury, transfusion, infection, and abnormal placentation such as placenta previa and placenta accreta). I counseled the patient on risks of ERCD after one prior CD, including bleeding requiring blood transfusion, infection, and injury to surrounding organs, including bowel and bladder. I explained that the more CDs you have, the higher the chances are of having those complications. In addition, multiple CDs increase the chances of placenta accrete, which can be life threatening. I counseled the patient that the risks of trial of labor (TOLAC) include major maternal complications, such as uterine rupture (<1% for one previous LTCD in spontaneous labor or 4-9% for previous classical or t-shaped uterine incision, and 0.9%-3.7% for >1 prior CD) that may lead to emergent CD, hysterectomy, and additional operative procedures, as well as increased maternal infection risk and need for blood product transfusion. Uterine rupture may lead to maternal injury or and injury, including severe neurological damage (rate of 0.8 per 1000 trials of labor) or even (approx 0.13%). Patient also counseled on increased risk of uterine rupture with pitocin augmentation or induction of labor (approx 0.9-1.4% for one prior LTCD and 2-5% with undocumented uterine scar). Most published series examining patients attempting TOLAC have demonstrated a vaginal delivery rate of 60-80%. CD after a failed TOLAC carries more risk than planned ERCD. Patient was also counseled that her chance of successful based on her personal history is 92.1% using the early [facility] calculator (https://mfCodigamesetwork.ww [email or web address]/web/HelioVoltetwork/qmyjtys-xmvjr-ajoiv--ca lculator). Although there is no universally agreed upon discriminatory point, evidence suggests that patients with at least a 60-70% likelihood of achieving a who attempt TOLAC experience the same or less maternal morbidity than patients who have an ERCD. Patients who have a lower than 60% probability of achieving a who attempt TOLAC are more likely to experience morbidity than patients who have an ERCD. All questions were answered. Patient voiced her understanding of the risks and benefits of and in a sound mind wishes to proceed with TOLAC. CARLOS A Helton [facility] [id number] 14:45:00 Addended by: BHAVIK JONES on: 07/11/2023 03:32 PM Modules accepted: Level of Service FELICITA-DERMATOLOGY STAFFJames Ville [id number] 11:00:00 Images from the original note were not included. Venipuncture collection performed by clean technique on the right anticubitus. Total of 1 attempts were made. Slight pressure and a bandage/dressing were applied to the site(s). The patient experienced no complications. The following specimens were processed according to instructions and sent to [facility] laboratories per lab order on 05/15/2023 : LT BLUE SST RED LAV 1 PPT DK GREEN (LiHep) DK GREEN (SodH) [place] DK BLUE (K2) DK BLUE (S) ACD Blood Culture NIPT/NTD [place] [id number] 09:02:41 [facility] ordered per pt preference. [place] [id number] 12:45:00 Patient already had blood taken on the 7th floor in [facility] [employer] [facility]. [facility]
[2025-01-02 21:33] LABS: Absolute Lymphocytes (CBC) 2.2 K/uL (0.7-4.9); Hematocrit 35.5 % (36.0-45.0); Hemoglobin 11.2 g/dL (12.0-15.0); MCH 23.8 pg (27.0-35.0); MCHC 31.7 g/dL (32.0-36.0); MCV 75.3 fL (80-100); MPV 8.6 fL (7.6-11.3); Nucleated RBC Absolute Count 0.0 (0-0); Nucleated Red Blood Cells % 0.0 % (0-0); RBC Red Blood Cell Count 4.72 M/uL (3.86-4.86); White Blood Count 5.70 thou/uL (4.3-10.9)
[2025-01-02] MEDS ORDERED: ACETAMINOPHEN 500 MG TAB ONE (21:33)
[2025-01-02] MEDS ORDERED: KETOROLAC 30 MG/ML INJ ONE (21:33)
[2025-01-02 21:46] LABS: Influenza A Ag Negative; Influenza B Ag Negative; SARS-CoV-2 Antigen Rapid Res Negative (Negative)
[2025-01-02 21:47] LABS: Anion Gap 5.8 mEq/L (5.0-15.0); BUN Blood Urea Nitrogen 18.0 mg/dL (7-18); Glucose Level 94.0 mg/dL (74-106); Potassium 3.8 mEq/L (3.5-5.1)
--- NOTE | 2025-01-02 22:11 | ER ---
Nurse's Notes [facility] Name: Domenica Calderón Age: 34 yrs Sex: Female : 1990 Arrival Date: 01/02/2025 Time: 19:31 Bed 12 Private MD: Diagnosis: Myalgia Presentation: 01/02 19:51 Chief complaint: Patient states: RIGHT LEG PAIN, FEELING WARMED TO THE TOUCH IN SOME ha1 SPOTS. PAIN ON THE BACK AND BILATERAL ARMS. POSSIBLE MS FLARE UP. 19:51 Coronavirus screen: Client denies travel out of the [place] in the last 14 days. Ebola ha1 Screen: No symptoms or risks identified at this time. Initial Sepsis Screen: Does the patient meet any 2 criteria? No. Patient's initial sepsis screen is negative. Does the patient have a suspected source of infection? No. Patient's initial sepsis screen is negative. Risk Assessment: Do you want to hurt yourself or someone else? Patient reports no desire to harm self or others. Onset of symptoms was January 02, 2025. 19:51 Method Of Arrival: Ambulatory ha1 19:51 Acuity: ZAID 3 ha1 Triage Assessment: 20:04 General: Appears uncomfortable, Behavior is calm, cooperative. Neuro: Level of ha1 Consciousness is awake, alert, obeys commands, Oriented to person, place, time, situation. Historical: - Allergies: 20:04 Latex; ha1 - PMHx: 20:04 Anemia; gestational diabetes; Multiple Sclerosis; ha1 - PSHx: 20:04 section; ha1 - Immunization history:: Adult Immunizations up to date. - Infectious Disease History:: Denies. - Social history:: Smoking status: Patient denies any tobacco usage or history of. Screenin:11 [facility] ED Fall Risk Assessment (Adult) History of falling in the last 3 months, tb4 including since admission No falls in past 3 months (0 pts) Confusion or Disorientation No (0 pts) Intoxicated or Sedated No (0 pts) Impaired Gait No (0 pts) Mobility Assist Device Used No (0 pt) Altered Elimination No (0 pt) Score/Fall Risk Level 0 - 2 = Low Risk Maintained a safe environment. Abuse screen: Denies threats or abuse. Denies injuries from another. Nutritional screening: No deficits noted. Tuberculosis screening: No symptoms or risk factors identified. Assessment: 21:11 General: Appears in no apparent distress. Behavior is calm, cooperative. Pain: Denies tb4 pain. Neuro: Level of Consciousness is awake, alert, obeys commands, Oriented to person, place, time, situation, Dry Color Mixer are equal bilaterally Moves all extremities. Full function Gait is steady, Speech is normal, Facial symmetry appears normal. Respiratory: Airway is patent Respiratory effort is even, unlabored, Respiratory pattern is regular, symmetrical. GI: No signs and/or symptoms were reported involving the gastrointestinal system. : No signs and/or symptoms were reported regarding the genitourinary system. EENT: No signs and/or symptoms were reported regarding the EENT system. Derm: No signs and/or symptoms reported regarding the dermatologic system. Skin is intact, is healthy with good turgor, Skin is dry, Skin is normal, Skin temperature is warm Patient denies pain 0/10. Musculoskeletal: No signs and/or symptoms reported regarding the musculoskeletal system. Circulation, motion, and sensation intact. Range of motion: intact in all extremities, Reports hot and cold feeling to right thigh and leg that began this morning, but now the feeling has gone away. 22:21 Reassessment: Patient is alert, oriented x 3, equal unlabored respirations, skin tb4 warm/dry/pink. Patient denies pain at this time. Patient states feeling better. Vital Signs: 19:51 BP 117 / 82; Pulse 87; Resp 18 S; Temp 98.3; Pulse Ox 100% on R/A; Weight 72.57 kg; ha1 Height 5 ft. 4 in. ; Pain 6/10; 21:11 BP 104 / 75; Pulse 78; Resp 16; Pulse Ox 100% ; Weight 72.57 kg; Height 5 ft. 4 in. ; tb4 Pain 0/10; 22:20 BP 109 / 69; Pulse 77; Resp 18; Pulse Ox 100% on R/A; tb4 21:11 Body Mass Index 27.46 (72.57 kg, 162.56 cm) tb4 19:51 Pain Scale: Adult ha1 21:11 Pain Scale: Adult tb4 ED Course: 19:33 Patient arrived in ED. mr 20:04 Triage completed. ha1 20:11 Jef Bueno DO is Attending Physician. tt7 21:11 No provider procedures requiring assistance completed. tb4 21:11 Patient has correct armband on for positive identification. Bed in low position. Call tb4 light in reach. Side rails up X 1. Adult w/ patient. Client placed on continuous cardiac and pulse oximetry monitoring. NIBP monitoring applied. Door closed. Warm blanket given. 21:14 COVID-19 Ag + Flu A+B Ag Sent. ts3 21:14 Initial lab(s) drawn, by casting house laborer, sent to lab. Inserted saline lock: 20 gauge in right ts3 antecubital area, using aseptic technique. Blood collected. Flushed with 10 mL NS. 22:09 Jordan Mcknight MD is Referral Physician. tt7 22:29 IV discontinued, intact, bleeding controlled, No redness/swelling at site. Pressure tb4 dressing applied. 22:31 Provided Education on: Follow up with primary care. tb4 22:32 Arm band placed on right wrist. tb4 Administered Medications: 21:49 Drug: Acetaminophen PO 1000 mg PO once Route: PO; tb4 22:20 Follow up: Response: No adverse reaction; Pain is decreased tb4 21:49 Drug: Ketorolac IVP 15 mg IVP once Route: IVP; Site: right antecubital; tb4 22:20 Follow up: Response: No adverse reaction; Pain is decreased tb4 Medication: 21:11 VIS not applicable for this client. tb4 Outcome: 22:10 Discharge ordered by . tt7 22:31 Discharged to home ambulatory, with family, tb4 22:31 Condition: stable 22:31 Discharge instructions given to patient, family, Instructed on discharge instructions, follow up and referral plans. Demonstrated understanding of instructions, follow-up care, 22:32 Patient left the ED. tb4 Signatures: Suzette Carrillo, Reg Reg mr BakerJessie, RN RN ha1 Meche Joy RN RN tb4 Litzy Gomez ts3 Jef Bueno DO DO tt7
--- NOTE | 2025-01-02 22:11 | EDPHYS ---
Physician Documentation [facility] Name: Domenica Calderón Age: 34 yrs Sex: Female : 1990 Arrival Date: 01/02/2025 Time: 19:31 Bed 12 Private MD: ED Physician Jef Bueno Historical: - Allergies: 01/02 20:04 Latex; ha1 - PMHx: 20:04 Anemia; gestational diabetes; Multiple Sclerosis; ha1 - PSHx: 20:04 section; ha1 - Immunization history:: Adult Immunizations up to date. - Infectious Disease History:: Denies. - Social history:: Smoking status: Patient denies any tobacco usage or history of. ROS: 22:08 Constitutional: negative for fever. Cardiovascular: negative for chest pain. tt7 Respiratory: negative for shortness of breath. Abdomen/GI: negative for abdominal pain, nausea, vomiting, diarrhea. MS/Extremity: negative for injury and deformity. Skin: negative for rash. Neuro: negative for focal weakness. Vital Signs: 19:51 BP 117 / 82; Pulse 87; Resp 18 S; Temp 98.3; Pulse Ox 100% on R/A; Weight 72.57 kg; ha1 Height 5 ft. 4 in. ; Pain 6/10; 21:11 BP 104 / 75; Pulse 78; Resp 16; Pulse Ox 100% ; Weight 72.57 kg; Height 5 ft. 4 in. ; tb4 Pain 0/10; 22:20 BP 109 / 69; Pulse 77; Resp 18; Pulse Ox 100% on R/A; tb4 21:11 Body Mass Index 27.46 (72.57 kg, 162.56 cm) tb4 19:51 Pain Scale: Adult ha1 21:11 Pain Scale: Adult tb4 MDM: 20:11 Medical Screening Exam initiated tt7 22:08 Data reviewed: vital signs, nurses notes, lab test result(s), CBC, electrolytes. tt7 01/02 20:47 Order name: Basic Metabolic Panel; Complete Time: 21:54 tt7 01/02 20:47 Order name: CBC with Diff; Complete Time: 21:37 tt7 01/02 20:47 Order name: COVID-19 Ag + Flu A+B Ag; Complete Time: 21:54 tt7 Administered Medications: 21:49 Drug: Acetaminophen PO 1000 mg PO once Route: PO; tb4 22:20 Follow up: Response: No adverse reaction; Pain is decreased tb4 21:49 Drug: Ketorolac IVP 15 mg IVP once Route: IVP; Site: right antecubital; tb4 22:20 Follow up: Response: No adverse reaction; Pain is decreased tb4 Disposition Summary: 01/02/25 22:10 Discharge Ordered Notes: Location: Home tt7 Problem: new tt7 Symptoms: have improved tt7 Condition: Stable tt7 Diagnosis - Myalgia tt7 Followup: tt7 - With: Emergency Department - When: As needed - Reason: Followup: tt7 - With: Jordan Mcknight MD - When: 2 - 3 days - Reason: Recheck today's complaints, Re-evaluation by your physician Discharge Instructions: - Discharge Summary Sheet tt7 - Muscle Pain, Adult tt7 - Pain Without a Known Cause tt7 Forms: - Medication Reconciliation Form tt7 - Antibiotic Education tt7 - Prescription Opioid Use tt7 - Patient Portal Instructions tt7 - Leadership Thank You Letter tt7 Addendum: 01/04/2025 08:01 Addendum: 34-year-old female presents to the emergency department complaining of t t7 generalized bodyaches, no fever, no chest pain or shortness of breath, patient has history of multiple sclerosis as being managed outpatient by neurologist, she does not have any focal weakness. Constitutional: vital signs reviewed, well appearing Head: normocephalic, atraumatic Eyes: no conjunctival injection, anicteric sclerae ENMT: mucus membranes moist Neck: trachea midline, no JVD, no meningismus Respiratory: normal respiratory effort, no accessory muscle use, lungs CTAB, no wheezing or rales Cardiovascular: Regular rate and rhythm, no murmurs, no rubs, no lower extremity edema Abdomen: soft, nondistended, nontender, no guarding or rebound, negative Wright's sign, no McBurney point tenderness MSK: normal ROM of extremities, no gross deformities Skin: warm, dry, intact, no rash Neuro: alert and oriented with appropriate mental status, normal speech, follows commands, no focal neurologic deficits Psych: appropriate mood and affect Patient's vital signs are stable, physical exam is reassuring, do not suspect multiple sclerosis flareup, patient was treated with Tylenol and NSAID here in the emergency department, emergency department evaluation is reassuring. I do not suspect life-threatening process. Patient is stable and not in need of emergent medical intervention. I had a detailed discussion with the patient regarding the historical points, exam findings, emergency department evaluation, diagnostic results, and the discharge diagnosis. I discussed outpatient management of the patient's condition. I discussed the need for outpatient follow-up with primary care and relevant specialist. I discussed return precautions including the need to return to the ED if symptoms do not improve, worsen, or if there are any questions or concerns that arise at home. The patient was discharged in stable condition . Signatures: Dispatcher [employer] EDMS Jessie Baker RN RN ha1 Meche Joy RN RN tb4 Jef Bueno DO DO tt7 Corrections: (The following items were deleted from the chart) 01/02 20:47 20:47 BASIC METABOLIC PANEL+C.LAB.BRZ ordered. EDMS EDMS 20:47 20:47 CBC+H.LAB.BRZ ordered. EDMS EDMS 20:47 20:47 COVID-19 Ag + Flu A+B Ag+I.LAB.BRZ ordered. EDMS EDMS
[2025-01-02 22:37] VITALS: TEMP 98.3; O2SAT 100
[2025-01-02 22:40] VITALS: BP 109/69
== END 2025-01-02 22:32 | disposition home or self-care (01) ==
LOC: ER 19:31
DX: M79.10 Myalgia, unspecified site (principal); Z11.52 Encounter for screening for COVID-19
CPT/HCPCS: 36415; 80048; 85025; 87428; 96374; 99284